=== PATIENT | female | born 1980 | race Caucasian/White ===

== ENCOUNTER 2020-02-01 20:55 | Emergency (ER) | payer OTHER, SELFPAY ==
--- NOTE | ~2020-02-01 | CT_ITS ---
EXAMINATION: CT abdomen pelvis w con DATE: 02/01/2020 23:59 INDICATION: Right upper quadrant abdominal pain TECHNIQUE: Computed tomography (CT) of the abdomen and pelvis was performed with 100 mL Omnipaque-350 intravenous contrast. Automated exposure control and iterative reconstruction technique were employe d. The dose-length product was 1518.72 mGy-cm. COMPARISON: 05/23/2016 FINDINGS: Lung bases are clear. Heart size is normal. No pericardial or pleural effusion. Small sliding-type hi atal hernia. Cholecystectomy clips at the gallbladder fossa. Liver, spleen, pancreas and bilateral ad renal glands are normal. Bilateral nonobstructing nephrolithiasis with 2 mm stone in upper pole calyx of the right kidney, 1 mm stone in an upper pole calyx of the left kidney. No ureteral stones or hyd ronephrosis. Bowels including the appendix are normal. Small fat-containing umbilical hernia. Bladder is normal. The uterus is not identified and has likely been surgically resected. Bilateral adnexa ar e unremarkable. Trace amount of likely physiologic free fluid in the pelvis. No abscess or free intra perineal gas. No pathologically enlarged abdominal or pelvic lymphadenopathy. Moderate thoracic spond ylosis with multiple Schmorl's nodes. Moderate left and mild right hip osteoarthritis. Chronic diffus e sclerosis with increased prominence of the trabecular pattern throughout the pelvis is seen dating back to 2012 suggesting a systemic metabolic bone disease. IMPRESSION: 1. Normal appendix. No acute intra-abdominal/pelvic process. 2. Small sliding-type hiatal hernia. 3. 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 Paget's disease would be unlikely given patien t age. Reviewed, dictated and finalized at location . ADVISOR IMPRESSION: 1. Normal appendix. No acute intra-abdominal/pelvic process. 2. Small sliding-type hiatal hernia. 3. 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 Paget's disease would be unlikely giv en patient age.
[2020-02-01 21:06] VITALS: BP 161/91; PULSE 89; RESP 14; TEMP 37.1; O2SAT 95
[2020-02-01 21:26] LABS: Basophils Absolute Auto 0.1 K/mm3 (0.0-0.1); Basophils Percent Auto 0.6 % (0.2-1.2); Eosinophils Absolute Auto 0.3 K/mm3 (0-0.3); Eosinophils Percent Auto 3.5 % (0-4.4); Hematocrit 37.8 % (37.0-47.0); Hemoglobin 12.2 g/dL (12.0-15.0); Immature Granulocyte Absolute 0.05 K/mm3 (0.00-0.031); Immature Granulocyte Percent A 0.6 % (0-0.5); Lymphocytes Absolute Auto 2.04 K/mm3 (0.9-3.2); Lymphocytes Percent Auto 22.9 % (18.3-44.2); Mean Corpuscular HGB Conc 32.3 g/dl (32-36); Mean Corpuscular Hemoglobin 29.6 pg (26-34); Mean Corpuscular Volume 91.7 fl (80-100); Mean Platelet Volume 9.5 fl (7.4-10.4); Monocytes Absolute Auto 0.6 K/mm3 (0.1-0.6); Monocytes Percent Auto 6.5 % (2.6-8.5); Neutrophils Absolute Auto 5.9 K/mm3 (1.3-6.7); Neutrophils Percent Auto 65.9 % (45.5-73.1); Platelet Count Result 288 k/mm3 (150-375); Red Blood Count 4.12 M/mm3 (4.2-5.4); Red Cell Distribution Width 13.6 % (11.5-14.5); White Blood Count 8.9 K/mm3 (4.5-10.0)
[2020-02-01 21:37] LABS: Alanine Aminotransferase 21 U/L (4-35); Albumin Level 4.2 g/dL (3.5-5.1); Alkaline Phosphatase 92 U/L (38-126); Anion Gap 5 mmol/L (8-16); Aspartate Amino Transferase 20 U/L (14-36); Bilirubin,Total 0.3 mg/dL (0.2-1.3); Blood Urea Nitrogen 9 mg/dL (7-17); Calcium 9.1 mg/dL (8.4-10.2); Carbon Dioxide 29 mmol/L (22-30); Chloride 103 mmol/L (98-107); Estimated CRCL calculation 157 ml/min; Estimated Glomerular Filt Rate > 60; Glucose 140 mg/dL (65-105); Lipase 83 U/L (23-300); Potassium 3.6 mmol/L (3.4-5.0); Sodium 137 mmol/L (137-145)
--- NOTE | 2020-02-01 23:26 | ED.ABDPAIN ---
HPI - Abdominal Pain General Chief Complaint: Abdominal Pain Stated Complaint: abdominal pain x 1 week Time Seen by Provider: 02/01/20 23:25 History of Present Illness HPI narrative: RUQ pain x 1 week. Radiates to the right back. Associated with nausea and one episode of vomiting. Intially intermittent now constant. Made worse by eating. Additionally c/o rotating constipation and diarrhea. H/o cholecystectomy. Related Data Allergies Allergy/AdvReac Type Severity Reaction Status Date / Time METOCLOPRAMIDE HCL Allergy Unknown unknown Uncoded 12/02/19 10:01 Review of Systems Review of Systems: All systems reviewed & are unremarkable except as noted in HPI and below Constitutional: Constitutional: Denies fever(s) Cardiovascular: Cardiovascular: Denies chest pain Respiratory: Respiratory: Denies dyspnea Gastrointestinal: Gastrointestinal: Reports abdominal pain, Reports constipation, Reports diarrhea, Reports nausea and Reports vomiting Genitourinary: Genitourinary: Denies hematuria, Denies nocturia and Denies dysuria Musculoskeletal: Musculoskeletal: Reports back pain Neurologic: Denies dizziness and Denies weakness PMF Past Medical History Medical History Anxiety and depression Essential (primary) hypertension Right low back pain Surgical History Surgical History History of cholecystectomy Family History Family History Father Hypertension Family history of heart disease in male family member before age 55 Grandparent Hypertension Family history of malignant neoplasm of breast Mother Hypertension Other Diabetes mellitus Social History Social History Smoking status: Never smoker Alcohol intake: current Exam Const: General: healthy appearing, no acute distress and alert Orientation/consciousness: patient oriented x3 HENMT: Head: normal to inspection Neck: Neck: normal visual inspection and no lymphadenopathy Chest: Chest palpation & inspection: no tenderness Resp: Effort & Inspection: normal respiratory effort Auscultation: clear to auscultation bilaterally, no rales, no rhonchi and no wheezes Cardio: Jugular venous distension: no JVD Rate: regular rate Rhythm: regular rhythm Heart sounds: no murmurs GI: Inspection: non-distended GI Palp: Yes Soft to palpation, Yes Tenderness to palpation present (GI) (RUQ), No Guarding due to palpation present (GI) and No Rebound tenderness present Skin: General skin exam: normal color Neuro: General: patient oriented x3 and moves all extremities Speech: normal speech Extrem: General: no edema Psych: Appearance: well kempt Affect: normal affect Course Vital Signs Vital signs: Vital Signs Temperature 37.1 C 02/01/20 21:06 Pulse Rate 89 02/01/20 21:06 Respiratory Rate 14 02/01/20 21:06 Blood Pressure 161/91 H 02/01/20 21:06 Pulse Oximetry 95 02/01/20 21:06 Temperature 37.1 C 02/01/20 21:06 Pulse Rate 77 02/02/20 00:13 Respiratory Rate 22 H 02/02/20 00:13 Blood Pressure 163/98 H 02/02/20 00:13 Pulse Oximetry 96 02/02/20 00:13 MDM - Abdominal Pain MDM Narrative Medical decision making narrative: Labs reassuring. Nothing acute on CT. Symptoms suspicious for IBS. I will try bentyl. Differential Diagnosis Differential diagnosis: Likely constipation, diverticulitis and small bowel obstruction Medical Records Attestation: I reviewed the patient's medical records. Lab Data Attestation: I reviewed the patient's lab results. Result diagrams: 02/01/20 21:15 02/01/20 21:15 Labs: Lab Results 02/01/20 02/01/20 02/01/20 Range/Units 21:15 21:15 23:34 WBC 8.9 (4.5-10.0) K/mm3 RBC 4.12 L (4.2-5.4) M/mm3 Hgb 12.2 (12.0-15.0) g/dL Hct
[2020-02-01 23:48] LABS: Add Urine Microscopic? NO; Appearance Urine Clear (Clear); Bilirubin Urine Negative (Negative); Blood Urine Negative (Negative); Color Urine Yellow (Yellow); Glucose Urine UA Negative (Negative); Ketones Urine Negative (Negative); Leukocyte Esterase Ur Negative LEU/UL (Negative); Nitrate Urine Negative (Negative); Protein Urine Negative (Negative); Specific Grav Ur 1.018 (1.001-1.035); Urobilinogen Urine Negative mg/dL (<2.0)
[2020-02-02 00:13] VITALS: BP 163/98; PULSE 77; RESP 22; O2SAT 96
[2020-02-02] MEDS: ONDANSETRON INJ 4 MG/2 ML VIAL IV PUSH (00:56)
[2020-02-02] MEDS: DICYCLOMINE HCL INJ 20 MG/2 ML VIAL IM (00:56)
[2020-02-02 01:36] VITALS: BP 144/88; PULSE 69; RESP 16; TEMP 36.8; O2SAT 97
== END 2020-02-02 01:43 | disposition home or self-care (01) ==
PROVIDERS: Emergency Medicine; Emergency Provider Emergency Medicine; PCP Family Medicine
DX: R10.11 Right upper quadrant pain (principal); I10 Essential (primary) hypertension; K44.9 Diaphragmatic hernia without obstruction or gangrene; M89.9 Disorder of bone, unspecified
CPT/HCPCS: 36415; 74177; 80053; 81003; 81025; 83690; 85025; 96372; 96374; 99284; J0500; J2405; Q9967

== ENCOUNTER 2020-02-10 13:47 | Outpatient (CLI) | payer OTHER, SELFPAY ==
[2020-02-10 14:10] LABS: Basophils Absolute Auto 0.1 K/mm3 (0.0-0.1); Basophils Percent Auto 0.8 % (0.2-1.2); Eosinophils Absolute Auto 0.4 K/mm3 (0-0.3); Eosinophils Percent Auto 4.7 % (0-4.4); Hematocrit 37.5 % (37.0-47.0); Immature Granulocyte Absolute 0.03 K/mm3 (0.00-0.031); Immature Granulocyte Percent A 0.4 % (0-0.5); Lymphocytes Absolute Auto 1.84 K/mm3 (0.9-3.2); Lymphocytes Percent Auto 23.5 % (18.3-44.2); Mean Corpuscular Hemoglobin 29.9 pg (26-34); Mean Corpuscular Volume 93.5 fl (80-100); Mean Platelet Volume 9.3 fl (7.4-10.4); Monocytes Absolute Auto 0.5 K/mm3 (0.1-0.6); Monocytes Percent Auto 6.6 % (2.6-8.5); Platelet Count Result 280 k/mm3 (150-375); Red Blood Count 4.01 M/mm3 (4.2-5.4); Red Cell Distribution Width 13.5 % (11.5-14.5); White Blood Count 7.8 K/mm3 (4.5-10.0)
[2020-02-10 14:24] LABS: Alanine Aminotransferase 23 U/L (4-35); Alkaline Phosphatase 102 U/L (38-126); Amylase 41 U/L (30-110); Anion Gap 3 mmol/L (8-16); Aspartate Amino Transferase 27 U/L (14-36); Bilirubin,Total 0.5 mg/dL (0.2-1.3); Blood Urea Nitrogen 10 mg/dL (7-17); CRP 1.5 mg/dL (<1.0); Calcium 9.1 mg/dL (8.4-10.2); Carbon Dioxide 32 mmol/L (22-30); Chloride 103 mmol/L (98-107); Cholesterol 196 mg/dL (0-200); Estimated Glomerular Filt Rate > 60; Glucose 91 mg/dL (65-105); HDL Direct 33 mg/dL; Lipase 58 U/L (23-300); Potassium 4.3 mmol/L (3.4-5.0); Sodium 138 mmol/L (137-145); Triglycerides 187 mg/dL (<150)
[2020-02-10 14:33] LABS: LDL Cholesterol Direct 115 mg/dL
[2020-02-10 14:54] LABS: Erythrocyte Sedimentation Rate 33 mm/hr (0-20)
[2020-02-10 15:20] LABS: Free T4 Free Thyroxine 0.85 ng/mL (0.78-2.19); Vitamin D 25 Hydroxy 23.9 ng/mL
[2020-02-13 05:45] LABS: Thyroid Peroxidase Antibodies <1 IU/mL (<9)
[2020-02-14 10:42] LABS: ANA Cascade Screen Negative (Negative)
== END 2020-02-10 13:48 | disposition home or self-care (01) ==
PROVIDERS: PCP Family Medicine; Visit Provider Nurse Practitioner Family
DX: Z13.220 Encounter for screening for lipoid disorders (principal); R10.9 Unspecified abdominal pain; D64.9 Anemia, unspecified; R93.5 Abnormal findings on diagnostic imaging of other abdominal regions, including retroperitoneum; F41.9 Anxiety disorder, unspecified; R53.83 Other fatigue; E55.9 Vitamin D deficiency, unspecified; Z51.81 Encounter for therapeutic drug level monitoring; Z79.899 Other long term (current) drug therapy
CPT/HCPCS: 36415; 80053; 80061; 82150; 82306; 83690; 84439; 84443; 85025; 85652; 86038; 86140; 86376

== ENCOUNTER 2020-09-23 10:19 | Outpatient (CLI) | payer OTHER, SELFPAY ==
--- NOTE | ~2020-09-23 | XR_ITS ---
XR foot RT 2V DATE: 09/23/2020 10:30 INDICATION: Pain in medial anterior right foot. TECHNIQUE: AP and lateral views COMPARISON: None FINDINGS: Moderate plantar calcaneal enthesopathy. Slight posterior calcaneal enthesopathy. No fracture or dislocation, periosteal reaction or bone destruction. IMPRESSION: Calcaneal enthesopathy Reviewed, dictated and finalized at location B. IMPRESSION: Calcaneal enthesopathy
== END 2020-09-23 10:20 | disposition home or self-care (01) ==
PROVIDERS: PCP Family Medicine; Visit Provider Physician Assistant Medical
DX: M79.671 Pain in right foot (principal); M77.31 Calcaneal spur, right foot
CPT/HCPCS: 73620

== ENCOUNTER 2021-02-07 09:09 | Outpatient (CLI) | payer OTHER, SELFPAY ==
[2021-02-07 09:43] LABS: Basophils Absolute Auto 0.1 K/mm3 (0.0-0.1); Basophils Percent Auto 0.6 % (0.2-1.2); Eosinophils Absolute Auto 0.4 K/mm3 (0-0.3); Eosinophils Percent Auto 4.4 % (0-4.4); Hematocrit 38.1 % (37.0-47.0); Hemoglobin 12.3 g/dL (12.0-15.0); Immature Granulocyte Absolute 0.04 K/mm3 (0.00-0.031); Immature Granulocyte Percent A 0.4 % (0-0.5); Lymphocytes Percent Auto 20.5 % (18.3-44.2); Mean Corpuscular HGB Conc 32.3 g/dl (32-36); Mean Corpuscular Hemoglobin 30.1 pg (26-34); Mean Corpuscular Volume 93.4 fl (80-100); Mean Platelet Volume 9.6 fl (7.4-10.4); Monocytes Absolute Auto 0.6 K/mm3 (0.1-0.6); Monocytes Percent Auto 6.5 % (2.6-8.5); Neutrophils Absolute Auto 6.2 K/mm3 (1.3-6.7); Neutrophils Percent Auto 67.6 % (45.5-73.1); Platelet Count Result 292 k/mm3 (150-375); Red Blood Count 4.08 M/mm3 (4.2-5.4); Red Cell Distribution Width 13.6 % (11.5-14.5); White Blood Count 9.3 K/mm3 (4.5-10.0)
[2021-02-07 10:01] LABS: Alanine Aminotransferase 22 U/L (4-35); Albumin Level 4.3 g/dL (3.5-5.1); Alkaline Phosphatase 126 U/L (38-126); Anion Gap 9 mmol/L (8-16); Aspartate Amino Transferase 22 U/L (14-36); Bilirubin,Total 0.5 mg/dL (0.2-1.3); Blood Urea Nitrogen 9 mg/dL (7-17); Calcium 9.5 mg/dL (8.4-10.2); Carbon Dioxide 27 mmol/L (22-30); Chloride 102 mmol/L (98-107); Cholesterol 207 mg/dL (0-200); Estimated Glomerular Filt Rate > 60; Glucose 107 mg/dL (65-110); HDL Direct 39 mg/dL; Potassium 4.1 mmol/L (3.4-5.0); Sodium 138 mmol/L (137-145); Triglycerides 177 mg/dL (<150)
[2021-02-07 10:12] LABS: LDL Cholesterol Direct 114 mg/dL
[2021-02-07 10:26] LABS: Vitamin D 25 Hydroxy 28.8 ng/mL
== END 2021-02-07 09:10 | disposition home or self-care (01) ==
PROVIDERS: PCP Family Medicine; Visit Provider Nurse Practitioner Family
DX: Z13.29 Encounter for screening for other suspected endocrine disorder (principal); I10 Essential (primary) hypertension; Z13.220 Encounter for screening for lipoid disorders; E56.9 Vitamin deficiency, unspecified
CPT/HCPCS: 36415; 80053; 80061; 82306; 84443; 85025

== ENCOUNTER 2021-02-08 14:23 | Emergency (ER) | payer OTHER, SELFPAY ==
--- NOTE | ~2021-02-08 | XR_ITS ---
EXAMINATION: XR chest 2V DATE: 02/08/2021 17:48 INDICATION: Chest pain. TECHNIQUE: Frontal and lateral views of the chest were obtained. COMPARISON: Chest 2 views 11/13/2014 FINDINGS: There is no pneumonia, pleural effusion, or pneumothorax. The heart size is normal. There i s mild chronic anterior wedging of multiple vertebral bodies. IMPRESSION: 1. No acute cardiopulmonary disease. Reviewed, dictated and finalized at location A. ECTION SUPERVISOR
--- NOTE | ~2021-02-08 | CT_ITS ---
EXAMINATION: CT brain wo con DATE: 02/08/2021 17:47 INDICATION: Headache. TECHNIQUE: Computed tomography (CT) of the head was performed without intravenous contrast. The mA wa s adjusted according to patient size. Iterative reconstruction technique was employed. The dose-lengt h product was 605.33 mGy-cm. COMPARISON: None FINDINGS: There is no acute ischemic infarct, intracranial hemorrhage, or abnormal mass lesion. The v entricles are normal in size. The paranasal sinuses are clear. There are likely changes of right ocul ar lens replacement surgery. The mastoid air cells are normal. IMPRESSION: 1. Normal brain. Reviewed, dictated and finalized at location A. ATOR MECHANIC IMPRESSION: 1. Normal brain.
[2021-02-08 14:35] VITALS: BP 180/104; PULSE 83; RESP 20; TEMP 36.5; O2SAT 100
[2021-02-08 17:06] VITALS: BP 183/97; PULSE 86; RESP 13; O2SAT 95
--- NOTE | 2021-02-08 17:15 | ECG_ITS ---
Measurements Intervals [place] Rate: 71 P: 15 [place]: 143 QRS: 37 QRSD: 102 T: 10 QT: 388 QTc: 423 Interpretive Statements SINUS RHYTHM EARLY PRECORDIAL R/S TRANSITION BASELINE WANDER- I, II BORDERLINE ECG Electronically Signed On 02-08-2021 20:14:29 PLASTER BLOCK LAYER by Salas Gonzalez D.O.
--- NOTE | 2021-02-08 17:25 | PC.NURSE ---
Pt gone to CT scan
[2021-02-08 17:31] LABS: Basophils Absolute Auto 0.1 K/mm3 (0.0-0.1); Basophils Percent Auto 0.6 % (0.2-1.2); Eosinophils Absolute Auto 0.5 K/mm3 (0-0.3); Eosinophils Percent Auto 4.2 % (0-4.4); Hematocrit 38.4 % (37.0-47.0); Hemoglobin 12.3 g/dL (12.0-15.0); Immature Granulocyte Absolute 0.05 K/mm3 (0.00-0.031); Immature Granulocyte Percent A 0.4 % (0-0.5); Lymphocytes Absolute Auto 2.03 K/mm3 (0.9-3.2); Lymphocytes Percent Auto 17.9 % (18.3-44.2); Mean Corpuscular Hemoglobin 29.9 pg (26-34); Mean Corpuscular Volume 93.4 fl (80-100); Mean Platelet Volume 9.3 fl (7.4-10.4); Monocytes Absolute Auto 0.6 K/mm3 (0.1-0.6); Monocytes Percent Auto 5.4 % (2.6-8.5); Neutrophils Absolute Auto 8.1 K/mm3 (1.3-6.7); Neutrophils Percent Auto 71.5 % (45.5-73.1); Platelet Count Result 298 k/mm3 (150-375); Red Blood Count 4.11 M/mm3 (4.2-5.4); Red Cell Distribution Width 13.9 % (11.5-14.5); White Blood Count 11.3 K/mm3 (4.5-10.0)
--- NOTE | 2021-02-08 17:31 | ED.HA ---
HPI - Headache General Chief Complaint: Headache Stated Complaint: Headache, Elevated BP Time Seen by Provider: 02/08/21 17:01 Source: patient and RN notes reviewed Mode of arrival: ambulatory Limitations: no limitations History of Present Illness HPI Narrative: This is a 40 year old female with history of frequent headaches, anxiety and hypertension who presents for evaluation chest tightness and headache. Patient has been having intermittent chest tightness for 1 week and frontal dull headache. She checked her blood pressure at home it has been elevated so she came to ER. She has been evaluated by PCP for headache and she reports 1 month ago she had medication changed that helped her headache. They were thinking her symptoms were due to anxiety. She denies worsening shortness of breath, cough, fever, vomiting, diarrhea. She reports nausea with headache. Her headache has been constant today but she denies associated photophobia today. She denies URI symptoms as well. Today she has not taken any medication for her headache. Related Data Home Medications Medication Instructions Recorded Confirmed meloxicam 15 mg tablet 15 mg PO DAILY 11/15/20 01/09/21 Allergies Allergy/AdvReac Type Severity Reaction Status Date / Time metoclopramide Allergy Unknown Verified 02/08/21 17:56 Review of Systems Review of Systems: All systems reviewed & are unremarkable except as noted in HPI and below PMFSH Past Medical History Medical History Anxiety and depression BMI 40.0-44.9, adult BMI greater than 40 Essential (primary) hypertension Morbid (severe) obesity due to excess calories Right low back pain Surgical History Surgical History H/O: hysterectomy History of cholecystectomy Family History Family History Father Hypertension Family history of heart disease in male family member before age 55 Peripheral artery disease Grandparent Hypertension Family history of malignant neoplasm of breast Mother Hypertension Sibling Peripheral artery disease Other Diabetes mellitus Social History Social History Second hand tobacco smoke exposure: No Alcohol intake: current Drinks per week: 3 Substance use: never Substance use type: does not use 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 Gender identity (if verbalized by the patient): Female Sexual Orientation (if Verbalized by the Patient): Straight or Heterosexual Spiritual care concerns: No Agree to blood products: Yes Exam Const: General: no acute distress and alert Orientation/consciousness: patient oriented x3 HENMT: Head: normocephalic and atraumatic Mouth: Yes Normal oral and palatal mucosa present, Yes lip normal, Yes oropharynx normal and Yes moist mucous membranes Eyes: EOM: EOMs intact bilaterally Other: right pupil nonreactive dilated , this is normal for patient Resp: Effort & Inspection: normal respiratory effort and no retractions Auscultation: clear to auscultation bilaterally GI: GI Palp: Yes Soft to palpation, No Tenderness to palpation present (GI) and No Guarding due to palpation present (GI) Auscultation: normal bowel sounds Neuro: General: patient oriented x3, moves all extremities and CN's II-XI intact bilaterally Extrem: General: normal to inspection Psych: Mental Status: mental status grossly normal Affect: normal affect Course Reevaluation(s) Reevaluation #1: Patient states she feels better. She has history of chronic headaches. Her chest pain is atypical. She will follow up with PCP Date: 02/08/21 Time: 20:19 Vital Signs Vital signs: Vital Signs Temperature 97.7 F 02/08/21 14:35 Pulse Rate 83 02/08/21 14:35 Respiratory Rate 20 12
[2021-02-08 17:39] LABS: Alanine Aminotransferase 24 U/L (4-35); Albumin Level 4.5 g/dL (3.5-5.1); Alkaline Phosphatase 117 U/L (38-126); Anion Gap 9 mmol/L (8-16); Aspartate Amino Transferase 24 U/L (14-36); Bilirubin,Total 0.5 mg/dL (0.2-1.3); Blood Urea Nitrogen 10 mg/dL (7-17); Calcium 9.5 mg/dL (8.4-10.2); Carbon Dioxide 28 mmol/L (22-30); Chloride 98 mmol/L (98-107); Estimated CRCL calculation 137 ml/min; Estimated Glomerular Filt Rate > 60; Glucose 97 mg/dL (65-110); Lipase 48 U/L (23-300); Potassium 3.8 mmol/L (3.4-5.0); Sodium 135 mmol/L (137-145)
[2021-02-08 17:41] LABS: Partial Thromboplastin Time 29.2 SECONDS (22.3-36.8)
[2021-02-08 17:44] LABS: D Dimer 0.41 ug/mL (<0.48)
[2021-02-08 17:51] LABS: Troponin I < 0.012 ng/mL (0.000-0.034)
[2021-02-08] MEDS: KETOROLAC 30 MG/ML VIAL (*BKC) IV PUSH (18:30)
[2021-02-08] MEDS: LORazepam (*CRX) 0.5 MG TABLET PO (18:30)
[2021-02-08] MEDS: SODIUM CHLORIDE 0.9% IV 1,000 ML 999 ML IV CONT (18:54)
[2021-02-08 19:10] VITALS: BP 156/87; PULSE 78; RESP 23; O2SAT 98
[2021-02-08 20:05] VITALS: BP 156/85; PULSE 77; RESP 24; O2SAT 97
[2021-02-08 20:49] VITALS: BP 134/86; PULSE 78; RESP 21; O2SAT 96
== END 2021-02-08 21:02 | disposition home or self-care (01) ==
PROVIDERS: Emergency Provider General Practice; PCP Family Medicine
DX: R51.9 Headache, unspecified (principal); R07.89 Other chest pain; I10 Essential (primary) hypertension; E66.01 Morbid (severe) obesity due to excess calories; Z68.41 Body mass index [BMI] 40.0-44.9, adult
CPT/HCPCS: 36415; 70450; 71046; 80053; 83690; 84484; 85025; 85380; 85610; 85730; 93005; 96361; 96365; 96375; 99284; A9270; J0131; J1885; J7030

== ENCOUNTER → 2021-03-07 01:45 | Outpatient (CLI) | payer OTHER, SELFPAY ==
[2021-03-08 13:32] LABS: SARS-CoV-2 RNA PCR Positive
== END ==
PROVIDERS: PCP Family Medicine; Visit Provider Nurse Practitioner Family
DX: U07.1 COVID-19 (principal); R06.00 Dyspnea, unspecified; R68.89 Other general symptoms and signs
CPT/HCPCS: C9803; U0003; U0005

== ENCOUNTER 2021-03-17 07:08 | Outpatient (CLI) | payer OTHER, SELFPAY ==
--- NOTE | 2021-03-17 07:14 | ECHO_ITS ---
Patient Info Name: Ольга Parish Age: 40 years : 1980 Gender: Female Ht: 66 in Wt: 255 lbs BSA: 2.38 m2 HR: 70 bpm BP: 151 / 97 mmHg Technical Quality: Fair Exam Date: 03/17/2021 7:34 AM Exam Location: [facility] Pulmonary Patient Status: Outpatient Admit Date: 03/17/2021 Staff Ordering Physician: Kandis Leyva NP Cyber Special Agent: Marion Alvarez RDCS Attending Provider: Kandis Leyva NP Referring Physician: Gordon GUTIERREZ; Exam Type: CA echo doppler color flow Study Info Indications R06.00 - Dyspnea, unspecified Complete two-dimensional, color flow and Doppler transthoracic echocardiogram is performed. Summary 1. Complete two-dimensional, color flow and Doppler transthoracic echocardiogram is performed. 2. Left ventricular chamber dimension is normal. 3. Left ventricular systolic function is normal, estimated at 60-65%. 4. The left ventricular diastolic function is normal. 5. E/e' 7 is not elevated. 6. No pulmonary hypertension, estimated pulmonary arterial systolic pressure is 24 mmHg. Left Ventricle E/e' 7 is not elevated. Left ventricular chamber dimension is normal. Left ventricular systolic function is normal, estimated at 60-65%. The left ventricular diastolic function is normal. Right Ventricle Right ventricular chamber dimension is normal. Right ventricular systolic function is normal. Left Atria Left atrial chamber dimension is normal. Right Atria Right atrial chamber dimension is normal. Aortic Valve The aortic valve is trileaflet. There is no aortic valve stenosis. There is no aortic valve regurgitation. Pulmonic Valve There is no pulmonic regurgitation. Mitral Valve There is no mitral valve stenosis. There is no mitral valve regurgitation. Tricuspid Valve There is no tricuspid valve regurgitation. No pulmonary hypertension, estimated pulmonary arterial systolic pressure is 24 mmHg. Pericardium/Pleural There is no pericardial effusion. Inferior Vena Cava Inferior vena cava is not well visualized. Aorta The aortic root size at the sinus of Valsalva is normal. Left Ventricular Outflow Tract Name Value Normal LVOT 2D LVOT Diameter 2.0 cm LVOT Doppler LVOT Peak Gradient 4 mmHg LVOT Mean Gradient 2 mmHg LVOT VTI 20 cm LVOT VTI/AV VTI Ratio 0.9 LVOT Stroke Volume 64 ml LVOT CO 4.3 l/min LVOT CI 1.8 l/min/m2 Pulmonic Valve Name Value Normal RVOT Doppler RVOT Peak Gradient 2 mmHg PV Doppler PV Peak Gradient 3 mmHg Mitral Valve
--- NOTE | 2021-03-17 07:14 | EST_ITS ---
Patient Info Name: Ольга Parish Age: 40 years : 1980 Gender: Female Ht: 66 in Wt: 255 lbs BSA: 2.38 m2 HR: 65 bpm BP: 149 / 84 mmHg Heart Rhythm: Sinus Rhythm Exam Date: 03/17/2021 8:54 AM Exam Location: [facility] Stress Patient Status: Outpatient Admit Date: 03/17/2021 Staff Ordering Physician: Kandis Leyva NP Attending Provider: Kandis Leyva NP Exercise Technologist: Kasandra Berg CT Exercise Physician: Salas Gonzalez DO Exam Type: CA stress test treadmill Study Info Indications R06.00 - Dyspnea, unspecified An exercise stress test was performed. Summary 1. 1. Negative Yang exercise stress test for ischemic ST changes by ECG criteria. 2. 2. Reduced functional capacity, achieving 7.7 METs of workload. 3. 3. Baseline hypertension with hypertensive response to exercise. 4. 4. Appropriate HR response to exercise. 5. 5. Appropriate HR recovery at 1 minute post exercise. 6. 6. No imaging with stress testing. Protocol: Yang Stress ECG Details Stage: REST Duration (min): 1 min : 7 sec Speed (mph): 0.0 Grade (%): 0 HR (bpm): 64 SBP (mmHg): 149 DBP (mmHg): 84 METS: --- Stage: REST Duration (min): 5 min : 25 sec Speed (mph): 0.0 Grade (%): 0 HR (bpm): 79 SBP (mmHg): 149 DBP (mmHg): 84 METS: --- Stage: STAGE 1 Duration (min): 1 min : 0 sec Speed (mph): 1.7 Grade (%): 10 HR (bpm): 112 SBP (mmHg): 149 DBP (mmHg): 84 METS: --- Stage: STAGE 1 Duration (min): 2 min : 0 sec Speed (mph): 1.7 Grade (%): 10 HR (bpm): 124 SBP (mmHg): 149 DBP (mmHg): 84 METS: --- Stage: STAGE 1 Duration (min): 3 min : 0 sec Speed (mph): 1.7 Grade (%): 10 HR (bpm): 133 SBP (mmHg): 191 DBP (mmHg): 96 METS: --- Stage: STAGE 2 Duration (min): 1 min : 0 sec Speed (mph): 2.5 Grade (%): 12 HR (bpm): 144 SBP (mmHg): 191 DBP (mmHg): 96 METS: --- Stage: STAGE 2 Duration (min): 2 min : 0 sec Speed (mph): 2.5 Grade (%): 12 HR (bpm): 152 SBP (mmHg): 186 DBP (mmHg): 94 METS: --- Stage: STAGE 2 Duration (min): 3 min : 0 sec Speed (mph): 2.5 Grade (%): 12 HR (bpm): 159 SBP (mmHg): 186 DBP (mmHg): 94 METS: --- Stage: STAGE 3 Duration (min): 0 min : 28 sec Speed (mph): 3.4 Grade (%): 14 HR (bpm): 167 SBP (mmHg): 186 DBP (mmHg): 94 METS: --- Stage: RECOVERY Duration (min): 0 min : 31 sec Speed (mph): 0.0 Grade (%): 0 HR (bpm): 159 SBP (mmHg): 188 DBP (mmHg): 110 METS: --- Stage: RECOVERY Duration (min): 1 min : 31 sec Speed (mph): 0.0 Grade (%): 0 HR (bpm): 129 SBP (mmHg): 188 DBP (mmHg): 110 METS: --- Stage: RECOVERY Duration (min): 2 min : 31 sec Speed (mph): 0.0 Grade (%): 0 HR (bpm): 111 SBP (mmHg): 188 DBP (mmHg): 110 METS: ---
--- NOTE | 2021-03-21 12:00 | WPDHOLTEREM ---
Holter/Event Monitor Holter/Event Monitor Date of procedure: 03/17/21 Holter/Event Procedure: 24 Hr Holter Monitor Indications: Palpitations Conclusion: 1. 24 hour holter monitor on 03/17/21. 2. Underlying rhythm is sinus rhythm. HR range 59-128 bpm; average HR 87 bpm. 3. There is one atrial couplet. No supraventricular tachycardia. 4. There are 35 premature ventricular complexes. No ventricular tachycardia. 5. No sinoatrial or atrioventricular blocks. No significant pauses greater than 2 seconds. 6. Patient reports symptoms of shortness of breath, chest tightness which demonstrate sinus rhythm, HR range 67-77 bpm.
== END 2021-03-17 07:09 | disposition home or self-care (01) ==
PROVIDERS: PCP Family Medicine; Visit Provider Nurse Practitioner Family
DX: R06.00 Dyspnea, unspecified (principal); R00.2 Palpitations; I10 Essential (primary) hypertension; R07.89 Other chest pain
CPT/HCPCS: 93017; 93225; 93226; 93306

== ENCOUNTER 2021-03-22 17:49 | Day surgery (SDC) | payer OTHER, SELFPAY ==
[2021-03-22 17:57] VITALS: BP 171/97; PULSE 77; RESP 20; TEMP 37.2; O2SAT 100
--- NOTE | 2021-03-22 19:22 | ED.GENADULT ---
HPI - General Adult General Chief complaint: Skin/Abscess/Foreign Body Stated complaint: choking after dinner Time Seen by Provider: 03/22/21 18:48 History of Present Illness HPI narrative: 40-year-old female presented emergency department for suspected esophageal food bolus. Patient has had this issue previously. Patient did have a scope in 2008. Patient has not had GI follow-up since then. Patient has been taking omeprazole for approximately last 4 years. Patient states about 1 month ago she had a similar episode where food got stuck but when she is able to clear by drinking water. Patient states today at approximately 530 she was eating a chicken pot pie and felt that the bite is still in her esophagus. Since that time patient has been unable to handle her own secretions and has been vomiting her saliva. Patient denies any difficulty breathing. Patient does report esophageal/chest pain. Related Data Allergies Allergy/AdvReac Type Severity Reaction Status Date / Time metoclopramide Allergy Intermediate Unknown Verified 03/22/21 18:55 Review of Systems Review of Systems: CONSTITUTIONAL: Denies fever, chills, or sweats. EYES: Denies visual changes, redness, or discharge. ENT: Denies rhinorrhea, congestion, sore throat, or otalgia. CARDIOVASCULAR: Denies chest pain, palpitations, or edema. RESPIRATORY: Denies cough or dyspnea. GASTROINTESTINAL: Epigastric pain, patient not able to handle her own secretions and vomiting her saliva. GENITOURINARY: Denies dysuria or hematuria. SKIN: Denies rash or itching. MUSCULOSKELETAL: Denies back pain, joint pain, or myalgia. NEUROLOGIC: Denies headache, numbness, or weakness. PSYCHIATRIC: Denies anxiety or depression. [facility], [facility] Past Medical History Medical History Anxiety and depression BMI 40.0-44.9, adult BMI greater than 40 Essential (primary) hypertension Morbid (severe) obesity due to excess calories Right low back pain Surgical History Surgical History H/O: hysterectomy History of cholecystectomy Family History Family History Father Hypertension Family history of heart disease in male family member before age 55 Peripheral artery disease Grandparent Hypertension Family history of malignant neoplasm of breast Mother Hypertension Sibling Peripheral artery disease Other Diabetes mellitus Social History Social History Second hand tobacco smoke exposure: No Alcohol intake: current Drinks per week: 3 Substance use: never Substance use type: does not use 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 HEAD: normocephalic, atraumatic. EYES: PERRLA/EOMI, conjunctivae clear. NOSE: Normal no drainage THROAT: Pharynx clear, no exudate. NECK: Supple. No adenopathy, no masses. RESPIRATORY: Airway patent, respirations nonlabored. Clear to auscultation bilaterally, no rales, rhonchi, wheezing. CARDIOVASCULAR: Regular rate and rhythm without murmurs rubs or gallops. ABDOMINAL: Soft, nontender, nondistended, normal bowel sounds MUSCULOSKELETAL: Moves all extremities. Strength/ROM intact, No edema, No calf tenderness. Course Course Emergency Course: Case discussed with Dr. Morrow on-call for GI. Patient was treated with glucagon and nitro and had no effect after 30 minutes. Case was rediscussed with Dr. Simeon and he is calling in the GI team with the plan to take the patient to the GI lab to remove the food bolus. Patient was updated on the plan. All qu
[2021-03-22] MEDS: GLUCAGON FOR INJ 1 MG VIAL IM (19:49)
[2021-03-22] MEDS: NITROGLYCERIN SL 0.4 MG TABLET SUBLINGUAL (19:50)
[2021-03-22 20:23] LABS: Basophils Absolute Auto 0.1 K/mm3 (0.0-0.1); Basophils Percent Auto 0.5 % (0.2-1.2); Eosinophils Absolute Auto 0.4 K/mm3 (0-0.3); Eosinophils Percent Auto 3.7 % (0-4.4); Hematocrit 35.4 % (37.0-47.0); Hemoglobin 11.4 g/dL (12.0-15.0); Immature Granulocyte Absolute 0.04 K/mm3 (0.00-0.031); Immature Granulocyte Percent A 0.4 % (0-0.5); Lymphocytes Absolute Auto 1.91 K/mm3 (0.9-3.2); Lymphocytes Percent Auto 18.5 % (18.3-44.2); Mean Corpuscular HGB Conc 32.2 g/dl (32-36); Mean Corpuscular Hemoglobin 30.2 pg (26-34); Mean Corpuscular Volume 93.7 fl (80-100); Mean Platelet Volume 9.3 fl (7.4-10.4); Monocytes Absolute Auto 0.7 K/mm3 (0.1-0.6); Monocytes Percent Auto 6.7 % (2.6-8.5); Neutrophils Absolute Auto 7.3 K/mm3 (1.3-6.7); Neutrophils Percent Auto 70.2 % (45.5-73.1); Platelet Count Result 321 k/mm3 (150-375); Red Blood Count 3.78 M/mm3 (4.2-5.4); Red Cell Distribution Width 14.3 % (11.5-14.5); White Blood Count 10.3 K/mm3 (4.5-10.0)
[2021-03-22 20:35] LABS: Alanine Aminotransferase 25 U/L (4-35); Albumin Level 4.3 g/dL (3.5-5.1); Alkaline Phosphatase 111 U/L (38-126); Anion Gap 10 mmol/L (8-16); Aspartate Amino Transferase 34 U/L (14-36); Bilirubin,Total 0.5 mg/dL (0.2-1.3); Blood Urea Nitrogen 12 mg/dL (7-17); Calcium 9.2 mg/dL (8.4-10.2); Carbon Dioxide 26 mmol/L (22-30); Chloride 103 mmol/L (98-107); Estimated CRCL calculation 161 ml/min; Estimated Glomerular Filt Rate > 60; Glucose 135 mg/dL (65-110); Potassium 3.9 mmol/L (3.4-5.0); Sodium 139 mmol/L (137-145)
--- NOTE | 2021-03-22 20:47 | WPDANESEPP ---
Anes - Eval Pre Procedure Procedure: EGD Date/Time: 03/22/21 20:47 Surgeon: radha Pre Op Diagnosis: choking after dinner Patient Data Age: 40 Gender: F Height: 1.68 m Weight: 115.9 kg Last Vital Signs Temp 37.2 C 03/22/21 17:57 Pulse 77 03/22/21 17:57 Resp 20 03/22/21 17:57 BP 171/97 H 03/22/21 17:57 Pulse Ox 100 03/22/21 17:57 Allergies Allergy/AdvReac Type Severity Reaction Status Date / Time metoclopramide Allergy Intermediate Unknown Verified 03/22/21 18:55 Home Medications Medication Instructions Recorded Confirmed Type omeprazole 20 mg capsule,delayed 20 mg PO DAILY #30 cap 03/18/20 03/06/21 Rx release alprazolam 0.25 mg tablet 0.25 mg PO TID PRN #90 tablet 01/09/21 03/06/21 Rx duloxetine 30 mg capsule,delayed 30 mg PO DAILY #30 cap 01/09/21 03/06/21 Rx release nebivolol 20 mg tablet 10 mg PO DAILY #30 tablet 02/22/21 03/06/21 Rx tizanidine 2 mg tablet See Rx Instructions .ROUTE 03/05/21 03/06/21 Rx .COMPLEX #30 tablet azithromycin 250 mg tablet See Rx Instructions PO .COMPLEX #6 03/06/21 03/06/21 Rx tablet Laboratory Tests 03/22/21 03/22/21 20:12 20:12 WBC 10.3 K/mm3 H K/mm3 (4.5-10.0) RBC 3.78 M/mm3 L M/mm3 (4.2-5.4) Hgb 11.4 g/dL L g/dL (12.0-15.0) Hct 35.4 % L % (37.0-47.0) MCV 93.7 fl fl (80-100) MCH 30.2 pg pg (26-34) MCHC 32.2 g/dl g/dl (32-36) RDW 14.3 % % (11.5-14.5) Plt Count 321 k/mm3 k/mm3 (150-375) MPV 9.3 fl fl (7.4-10.4) Immature Gran % (Auto) 0.4 % % (0-0.5) Neut % (Auto) 70.2 % % (45.5-73.1) Lymph % (Auto) 18.5 % % (18.3-44.2) Barron % (Auto) 6.7 % % (2.6-8.5) Eos % (Auto) 3.7 % % (0-4.4) Baso % (Auto) 0.5 % % (0.2-1.2) Lymph # (Auto) 1.91 K/mm3 K/mm3 (0.9-3.2) Barron # (Auto) 0.7 K/mm3 H K/mm3 (0.1-0.6) Eos # (Auto) 0.4 K/mm3 H K/mm3 (0-0.3) Baso # (Auto) 0.1 K/mm3 K/mm3 (0.0-0.1) Abs Immat Gran (auto) 0.04 K/mm3 H K/mm3 (0.00-0.031) Absolute Neuts (auto) 7.3 K/mm3 H K/mm3 (1.3-6.7) Absolute Nucleated RBC 0.0 K/mm3 K/mm3 (0.0-0.012) Nucleated RBC % 0.0 % % (0.0-0.2) Sodium 139 mmol/L mmol/L (137-145) Potassium 3.9 mmol/L mmol/L (3.4-5.0) Chloride 103 mmol/L mmol/L (98-107) Carbon Dioxide 26 mmol/L mmol/L (22-30) Anion Gap 10 mmol/L mmol/L (8-16) BUN 12 mg/dL mg/dL (7-17) Creatinine 0.50 mg/dL L mg/dL (0.7-1.0) Estim Creat Clear Calc 161 ml/min ml/min Estimated GFR > 60 (59 - ) Glucose 135 mg/dL H mg/dL (65-110) Calcium 9.2 mg/dL mg/dL (8.4-10.2) Total Bilirubin 0.5 mg/dL mg/dL (0.2-1.3) AST 34 U/L U/L (14-36) ALT 25 U/L U/L (4-35) Alkaline Phosphatase 111 U/L U/L (38-126) Total Protein 8.0 g/dL g/dL (6.3-8.2) Albumin 4.3 g/dL g/dL (3.5-5.1) Patient hx anesthesia problems: none Family hx anesthesia problems: none Results Review: All pre-operative results and documents have been reviewed as part of the pre-operative evaluation. [facility] Past Medical History Medical History Anxiety and depression BMI 40.0-44.9, adult BMI greater than 40 Essential (primary) hypertension Morbid (severe) obesity due to excess calories Right low back pain Surgical History Surgical History H/O: hysterectomy History of cholecystectomy Family History Family History Father Hypertension Family history of heart disease in male family member before age 55 Peripheral artery disease Grandparent Hypertension Family history of malignant neoplasm of breast Mother Hypertension Sibling Peripheral artery disease Other Jacque
--- NOTE | 2021-03-22 21:25 | WPDGICN ---
Assessment and Plan Assessment and plan (1) Esophageal obstruction due to food impaction: Code(s): K22.2 - Esophageal obstruction; T18.128A - Food in esophagus causing other injury, initial encounter Status: Acute Assessment and Plan: EGD with possible biopsy or dilatation or cautery. GI Consult Note Consult date/time: 03/22/21 21:25 HPI: Ольга Parish is a 40 year old female Was eating a pot pie this evening and she realized that something got stuck. She believes that a piece of chicken is impacted. She has not been able to swallow her secretions. This is causing chest pain. She states she began taking omeprazole about 4 years ago for acid reflux. at that time she had had an episode of food sticking. She did not have endoscopy at that time but had radiologic studies that were said to be normal. The only time she had an EGD was 12 years ago when she was being investigated for gallbladder disease ago she had a similar episode that resolved on its own. In the emergency room she was given glucagon as well as nitroglycerin without improvement. there has been no weight loss. Review of Systems Review of Systems: All systems reviewed & are unremarkable except as noted in HPI and below PMFSH Past Medical History Medical History Anxiety and depression BMI 40.0-44.9, adult BMI greater than 40 Essential (primary) hypertension Morbid (severe) obesity due to excess calories Right low back pain Surgical History Surgical History H/O: hysterectomy History of cholecystectomy Family History Family History Father Hypertension Family history of heart disease in male family member before age 55 Peripheral artery disease Grandparent Hypertension Family history of malignant neoplasm of breast Mother Hypertension Sibling Peripheral artery disease Other Diabetes mellitus Social History Social History Second hand tobacco smoke exposure: No Alcohol intake: current Drinks per week: 3 Substance use: never Substance use type: does not use 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 Gender identity (if verbalized by the patient): Female Sexual Orientation (if Verbalized by the Patient): Straight or Heterosexual Spiritual care concerns: No Agree to blood products: Yes Meds Home Medications and Allergies Home Medications Medication Instructions Recorded Confirmed Type omeprazole 20 mg capsule,delayed 20 mg PO DAILY #30 cap 03/18/20 03/06/21 Rx release alprazolam 0.25 mg tablet 0.25 mg PO TID PRN #90 tablet 01/09/21 03/06/21 Rx duloxetine 30 mg capsule,delayed 30 mg PO DAILY #30 cap 01/09/21 03/06/21 Rx release nebivolol 20 mg tablet 10 mg PO DAILY #30 tablet 02/22/21 03/06/21 Rx tizanidine 2 mg tablet See Rx Instructions .ROUTE 03/05/21 03/06/21 Rx .COMPLEX #30 tablet azithromycin 250 mg tablet See Rx Instructions PO .COMPLEX #6 03/06/21 03/06/21 Rx tablet Allergies Allergy/AdvReac Type Severity Reaction Status Date / Time metoclopramide Allergy Intermediate Unknown Verified 03/22/21 18:55 Vital Signs Vital Signs - 24 hr 03/22/21 17:57 Temperature 37.2 C Pulse Rate 77 Respiratory Rate 20 Blood Pressure 171/97 H Pulse Oximetry 100 Exam Const: General: cooperative Nutritional Appearance: obese Orientation/consciousness: patient oriented x3 Resp: Auscultation: clear to auscultation bilaterally Cardio: Rhythm: regular rhythm GI: GI Palp: Yes Soft to palpation and No Tenderness to palpation present (GI) Auscultation: normal bowel sounds Neuro: General: patient oriented x3 Results Labs CBC & Chem 7: 03/22/21 20:12 03/22/21 20:12 Labs: Short CBC
--- NOTE | 2021-03-22 21:29 | SUR.PREOP ---
Pre oping and Post oping pt in Endoscopy room 3
[2021-03-22 21:33] VITALS: BP 178/110; PULSE 76; RESP 23; O2SAT 100
[2021-03-22] MEDS: LACTATED RINGERS 1,000 ML 150 ML IV CONT (21:33)
--- NOTE | 2021-03-22 21:34 | WPDANESEFPP ---
Anes - Eval Final PreProcedure Day of Procedure 03/22/21 21:34 Patient weight: morbidly obese Heart: regular rate and rhythm Lungs: clear to auscultation Airway: Mallampati scale class III Neurological: alert and oriented Last oral intake: 6 hours ASA classification: III Emergent: yes Anesthetic plan: proceed Anesthesia type and monitoring: general GIVS and standard monitoring Other findings: possible GETA Results Review: All pre-operative results and documents have been reviewed as part of the pre-operative evaluation. Informed Consent: The patient's anesthetic plan and its attendant risks and benefits were discussed with the patient/family/POA. Questions were solicited and answers provided to the satisfaction of the patient/family/POA.
--- NOTE | 2021-03-22 21:52 | PC.NURSE ---
2115 patient taken over to surgery with GI. family member remains at side.
[2021-03-22 22:15] VITALS: BP 134/76; PULSE 92; RESP 14; O2SAT 99
[2021-03-22 22:25] VITALS: BP 118/77; PULSE 89; RESP 16; O2SAT 100
[2021-03-22 22:35] VITALS: BP 124/80; PULSE 80; RESP 23; O2SAT 100
== END 2021-03-22 22:45 | disposition home or self-care (01) ==
LOC: ANHED 20:22 → ANHENDO 21:31
PROVIDERS: Emergency Provider Emergency Medicine; PCP Family Medicine; Visit Provider Internal Medicine Gastroenterology
PROC: 0DJ08ZZ Inspection of Upper Intestinal Tract, Via Natural or Artificial Opening Endoscopic (ICD-10-PCS; CPT 43235; principal; 2021-03-22 21:00)
DX: T18.128A Food in esophagus causing other injury, initial encounter (principal); K22.2 Esophageal obstruction; K44.9 Diaphragmatic hernia without obstruction or gangrene; I10 Essential (primary) hypertension; F41.8 Other specified anxiety disorders; E66.01 Morbid (severe) obesity due to excess calories; Z68.41 Body mass index [BMI] 40.0-44.9, adult
CPT/HCPCS: 43247; 36415; 80053; 85025; 96372; 99285; A9270; J1610; J2001; J2704; J7120

== ENCOUNTER 2021-03-30 00:35 | Day surgery (SDC) | payer OTHER, SELFPAY ==
[2021-03-27 13:53] VITALS: BMI 41.3
[2021-03-30 09:20] VITALS: BP 153/93; PULSE 68; RESP 18; TEMP 36.3; O2SAT 97; BMI 41.3
[2021-03-30] MEDS: LACTATED RINGERS 1,000 ML 150 ML IV CONT (09:51)
--- NOTE | 2021-03-30 10:14 | PM.HPGS ---
History of Present Illness History of Present Illness Consent: Risks, benefits, and alternatives have been discussed and questions answered. Patient agrees to proceed with procedure. Chief complaint: dysphagia Narrative: Ольга Parish is a 40 year old female who presents for endoscopy and possible dilatation due to the fact that she had a recent food bolus impaction which was removed 1 week ago. At that time she was noted to have stenosis at the GE junction and marked inflammation because of the tightly impacted food. Review of Systems Review of Systems: All systems reviewed & are unremarkable except as noted in HPI and below PMFSH Past Medical History Medical History Anxiety and depression BMI 40.0-44.9, adult BMI greater than 40 Essential (primary) hypertension Morbid (severe) obesity due to excess calories Right low back pain Surgical History Surgical History H/O: hysterectomy History of cholecystectomy Family History Family History Father Hypertension Family history of heart disease in male family member before age 55 Peripheral artery disease Grandparent Hypertension Family history of malignant neoplasm of breast Mother Hypertension Sibling Peripheral artery disease Other Diabetes mellitus Social History Social History Smoking status: Never smoker Second hand tobacco smoke exposure: No Alcohol intake: current Drinks per week: 3 Substance use: never Substance use type: does not use Living arrangements: with family 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 Gender identity (if verbalized by the patient): Female Sexual Orientation (if Verbalized by the Patient): Straight or Heterosexual Spiritual care concerns: No Agree to blood products: Yes Meds Home Medications and Allergies Home Medications Medication Instructions Recorded Confirmed Type alprazolam 0.25 mg tablet 0.25 mg PO TID PRN #90 tablet 01/09/21 03/30/21 Rx duloxetine 30 mg capsule,delayed 30 mg PO DAILY #30 cap 01/09/21 03/30/21 Rx release nebivolol [Bystolic] 20 mg PO DAILY 03/27/21 03/30/21 History omeprazole 40 mg PO DAILY 03/27/21 03/30/21 History tizanidine 2 mg tablet See Rx Instructions .ROUTE 03/28/21 03/30/21 Rx .COMPLEX #30 tablet Allergies Allergy/AdvReac Type Severity Reaction Status Date / Time metoclopramide Allergy Severe Other Verified 03/30/21 09:28 Vital Signs Vital Signs - 24 hr 03/30/21 09:20 Temperature 36.3 C L Pulse Rate 68 Respiratory Rate 18 Blood Pressure 153/93 H Pulse Oximetry 97 Exam Const: General: alert Orientation/consciousness: patient oriented x3 Resp: Auscultation: clear to auscultation bilaterally Cardio: Rhythm: regular rhythm GI: GI Palp: Yes Soft to palpation and No Tenderness to palpation present (GI) Neuro: General: patient oriented x3 Assessment and Plan Assessment and plan (1) Dysphagia: Code(s): R13.10 - Dysphagia, unspecified Status: Acute Assessment and Plan: EGD with possible biopsy or dilatation or cautery.
--- NOTE | 2021-03-30 10:47 | WPDANESEPPF ---
Anes - Initial Pre Proc Eval Procedure: Operation Date: 03/30/21 10:30 Proposed Procedures p Esophagogastroduodenoscopy - Junaid Morrow MD Date/Time: 03/30/21 10:47 Surgeon: Junaid Morrow MD Pre Op Diagnosis: dysphagia Patient Data Age: 40 Gender: F Height: 1.68 m Weight: 116.1 kg Last Vital Signs Temp 97.4 F L 03/30/21 09:20 Pulse 68 03/30/21 09:20 Resp 18 03/30/21 09:20 BP 153/93 H 03/30/21 09:20 Pulse Ox 97 03/30/21 09:20 Allergies Allergy/AdvReac Type Severity Reaction Status Date / Time metoclopramide Allergy Severe Other Verified 03/30/21 09:28 Home Medications Medication Instructions Recorded Confirmed Type alprazolam 0.25 mg tablet 0.25 mg PO TID PRN #90 tablet 01/09/21 03/30/21 Rx duloxetine 30 mg capsule,delayed 30 mg PO DAILY #30 cap 01/09/21 03/30/21 Rx release nebivolol [Bystolic] 20 mg PO DAILY 03/27/21 03/30/21 History omeprazole 40 mg PO DAILY 03/27/21 03/30/21 History tizanidine 2 mg tablet See Rx Instructions .ROUTE 03/28/21 03/30/21 Rx .COMPLEX #30 tablet Patient hx anesthesia problems: none Family hx anesthesia problems: none Results Review: All pre-operative results and documents have been reviewed as part of the pre-operative evaluation. [facility] Past Medical History Medical History Anxiety and depression BMI 40.0-44.9, adult BMI greater than 40 Essential (primary) hypertension Morbid (severe) obesity due to excess calories Right low back pain Surgical History Surgical History H/O: hysterectomy History of cholecystectomy Family History Family History Father Hypertension Family history of heart disease in male family member before age 55 Peripheral artery disease Grandparent Hypertension Family history of malignant neoplasm of breast Mother Hypertension Sibling Peripheral artery disease Other Diabetes mellitus Social History Social History Smoking status: Never smoker Second hand tobacco smoke exposure: No Alcohol intake: current Drinks per week: 3 Substance use: never Substance use type: does not use Living arrangements: with family 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 Gender identity (if verbalized by the patient): Female Sexual Orientation (if Verbalized by the Patient): Straight or Heterosexual Spiritual care concerns: No Agree to blood products: Yes Anes - Eval Final PreProcedure Day of Procedure 03/30/21 10:47 Patient weight: morbidly obese Heart: regular rate and rhythm Lungs: clear to auscultation Airway: Mallampati scale class III Neurological: alert and oriented Last oral intake: >/= 8 hours ASA classification: III Emergent: no Anesthetic plan: proceed Anesthesia type and monitoring: general GIVS and standard monitoring Results Review: All pre-operative results and documents have been reviewed as part of the pre-operative evaluation. Informed Consent: The patient's anesthetic plan and its attendant risks and benefits were discussed with the patient/family/POA. Questions were solicited and answers provided to the satisfaction of the patient/family/POA.
[2021-03-30] MEDS: BENZOCAINE (*SP) 60 ML SPRAY CAN (HURRICAINE) 1 SPRAY MUCOUS MEM (10:51)
[2021-03-30 11:10] VITALS: BP 134/75; PULSE 61; RESP 19; O2SAT 98
[2021-03-30 11:20] VITALS: BP 139/71; PULSE 59; RESP 21; O2SAT 99
[2021-03-30 11:30] VITALS: BP 138/76; PULSE 62; RESP 21; O2SAT 100
== END 2021-03-30 11:52 | disposition home or self-care (01) ==
PROVIDERS: PCP Family Medicine; Visit Provider Internal Medicine Gastroenterology
PROC: 0DJ08ZZ Inspection of Upper Intestinal Tract, Via Natural or Artificial Opening Endoscopic (ICD-10-PCS; CPT 43235; principal; 2021-03-30 10:30)
DX: K22.2 Esophageal obstruction (principal); K20.0 Eosinophilic esophagitis; K44.9 Diaphragmatic hernia without obstruction or gangrene; I10 Essential (primary) hypertension; F41.8 Other specified anxiety disorders; E66.01 Morbid (severe) obesity due to excess calories; Z68.41 Body mass index [BMI] 40.0-44.9, adult
CPT/HCPCS: 43249; 88305; C1726; J2704; J7120

== ENCOUNTER 2021-06-13 09:53 | Outpatient (CLI) | payer OTHER, SELFPAY ==
--- NOTE | ~2021-06-13 | XR_ITS ---
EXAMINATION: XR hip LT min 2V DATE: 06/13/2021 10:29 INDICATION: Left hip pain. TECHNIQUE: 2 views of left hip were obtained. COMPARISON: Left hip radiographs 10/23/2010 FINDINGS: Bone alignment is normal. No fracture. There is severe left hip osteoarthritis with acetabu lar protrusio. IMPRESSION: 1. Severe left hip osteoarthritis. Reviewed, dictated and finalized at location A.
--- NOTE | ~2021-06-13 | XR_ITS ---
EXAMINATION: XR hand RT 2V EXAM DATE: 06/13/2021 10:29 INDICATION: M25.50 - Pain in unspecified joint. TECHNIQUE: Frontal and lateral projections of the right hand. There is no prior study for compariso n. FINDINGS: There is right hand polyarticular primary osteoarthritis as follows: Moderate 2nd and 5th DIP, otherwise mild to moderate DIP. There are no acute fractures or dislocations identified. There is no subcutaneous gas. The soft tissue is unremarkable. There are no radiopaque foreign bodies. IMPRESSION: Polyarticular right interphalangeal osteoarthritis, 2nd, 5th DIP joint most affected. Reviewed, dictated and finalized at location A. IMPRESSION: Polyarticular right interphalangeal osteoarthritis, 2nd, 5th DIP tiff int most affected.
--- NOTE | ~2021-06-13 | XR_ITS ---
EXAMINATION: XR hand LT 2V EXAM DATE: 06/13/2021 10:29 INDICATION: M25.50 - Pain in unspecified joint. TECHNIQUE: Left hand frontal, lateral projections obtained and reviewed. There is no prior study for comparison. FINDINGS: Left metacarpal bones are unremarkable. There is polyarticular primary osteoarthritis as follows: Moderate 2nd, 4th, 5th DIP, mild to moderate 3rd DIP, mild 2nd and 3rd PIP. There are no acu te fractures or dislocations identified. There is no subcutaneous gas. The soft tissue is unremarka ble. There are no radiopaque foreign bodies. IMPRESSION: Left hand polyarticular osteoarthritis, 2nd, 4th, 5th DIP joints most affected. Reviewed, dictated and finalized at location A. IMPRESSION: Left hand polyarticular osteoarthritis, 2nd, 4th, 5th DIP joints mo st affected.
--- NOTE | ~2021-06-13 | XR_ITS ---
EXAMINATION: XR hip RT min 2V DATE: 06/13/2021 10:29 INDICATION: Right hip pain. TECHNIQUE: 2 views of right hip were obtained. COMPARISON: Right hip radiographs 10/23/2010 FINDINGS: Bone alignment is normal. No fracture. There is mild right hip osteoarthritis. IMPRESSION: 1. Mild right hip osteoarthritis. Reviewed, dictated and finalized at location A.
[2021-06-13 10:17] LABS: Basophils Absolute Auto 0.1 K/mm3 (0.0-0.1); Basophils Percent Auto 0.8 % (0.2-1.2); Eosinophils Absolute Auto 0.2 K/mm3 (0-0.3); Eosinophils Percent Auto 2.7 % (0-4.4); Hematocrit 37.9 % (37.0-47.0); Hemoglobin 11.8 g/dL (12.0-15.0); Immature Granulocyte Absolute 0.06 K/mm3 (0.00-0.031); Immature Granulocyte Percent A 0.7 % (0-0.5); Lymphocytes Absolute Auto 1.97 K/mm3 (0.9-3.2); Lymphocytes Percent Auto 22.3 % (18.3-44.2); Mean Corpuscular HGB Conc 31.1 g/dl (32-36); Mean Corpuscular Hemoglobin 29.6 pg (26-34); Mean Platelet Volume 9.5 fl (7.4-10.4); Monocytes Absolute Auto 0.6 K/mm3 (0.1-0.6); Monocytes Percent Auto 7.1 % (2.6-8.5); Neutrophils Absolute Auto 5.9 K/mm3 (1.3-6.7); Neutrophils Percent Auto 66.4 % (45.5-73.1); Platelet Count Result 329 k/mm3 (150-375); Red Blood Count 3.99 M/mm3 (4.2-5.4); Red Cell Distribution Width 13.7 % (11.5-14.5); White Blood Count 8.8 K/mm3 (4.5-10.0)
[2021-06-13 10:34] LABS: Rheumatoid Factor < 8.6 IU/ML (<12)
[2021-06-13 10:35] LABS: Anion Gap 7 mmol/L (8-16); Blood Urea Nitrogen 11 mg/dL (7-17); CRP 1.1 mg/dL (<1.0); Calcium 8.8 mg/dL (8.4-10.2); Carbon Dioxide 28 mmol/L (22-30); Chloride 103 mmol/L (98-107); Estimated Glomerular Filt Rate > 60; Glucose 162 mg/dL (65-110); Potassium 3.9 mmol/L (3.4-5.0); Sodium 138 mmol/L (137-145)
[2021-06-13 11:03] LABS: Vitamin D 25 Hydroxy 30.9 ng/mL
[2021-06-13 11:32] LABS: Erythrocyte Sedimentation Rate 22 mm/hr (0-20)
== END 2021-06-13 09:54 | disposition home or self-care (01) ==
LOC: ANHLAB 09:56
PROVIDERS: PCP Family Medicine; Visit Provider Nurse Practitioner Family
DX: M15.1 Heberden's nodes (with arthropathy) (principal); G25.81 Restless legs syndrome; D64.9 Anemia, unspecified; D72.829 Elevated white blood cell count, unspecified; M19.042 Primary osteoarthritis, left hand; M19.041 Primary osteoarthritis, right hand; M16.0 Bilateral primary osteoarthritis of hip
CPT/HCPCS: 36415; 73120; 73502; 80048; 82306; 82607; 85025; 85652; 86038; 86140; 86430

== ENCOUNTER 2021-07-20 00:37 | Day surgery (SDC) | payer OTHER, SELFPAY ==
[2021-06-30 12:41] VITALS: BMI 42.0
--- NOTE | 2021-07-19 09:56 | PM.HPGS ---
History of Present Illness History of Present Illness Consent: Risks, benefits, and alternatives have been discussed and questions answered. Patient agrees to proceed with procedure. Chief complaint: dysphagia Narrative: Ольга Parish is a 40 year old female who was found to have a high-grade stricture of the distal esophagus in March. she had initially presented to the emergency room March 22 with a food impaction. She had made a home made pot pie and realized that food was not going down. Emergency EGD with removal of multiple pieces of food was successful. I had noted severe inflammation and narrowing of the distal esophagus. She was then brought in as an outpatient a week later at which time we were able to dilate the lower esophageal sphincter up to 15 mm. Biopsies were taken at that time which did reveal severe inflammation but also changes consistent with eosinophilic esophagitis. for the past few years she had been taking omeprazole 20 mg a day for heartburn and occasional dysphagia. Since her procedure we put her on 40 mg per day. She feels that she is a bit better but still having difficulty swallowing from time to time, particularly solid foods such as bread and meat. She points to the upper sternal area as the area where it seems to get caught. Sometimes a drink or 2 will help something go down. She rarely needs to leave the table for more than a minute or so. She is not losing weight. She has no abdominal pain nausea or vomiting. She has had no change in bowel habits. We had discussed the fact that she would probably need to be dilated further but also because of the eosinophilic esophagitis, if she has not responded to PPI alone, we would add fluticasone Review of Systems Review of Systems: All systems reviewed & are unremarkable except as noted in HPI and below PMFSH Past Medical History Medical History Anxiety and depression BMI 40.0-44.9, adult BMI greater than 40 Essential (primary) hypertension Morbid (severe) obesity due to excess calories Right low back pain Surgical History Surgical History H/O: hysterectomy History of cholecystectomy Family History Family History Father Hypertension Family history of heart disease in male family member before age 55 Peripheral artery disease Grandparent Hypertension Family history of malignant neoplasm of breast Mother Hypertension Sibling Peripheral artery disease Other Diabetes mellitus Social History Social History Second hand tobacco smoke exposure: No Alcohol intake: current Drinks per week: 3 Substance use: never Substance use type: does not use Living arrangements: with family 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 Gender identity (if verbalized by the patient): Female Sexual Orientation (if Verbalized by the Patient): Straight or Heterosexual Spiritual care concerns: No Agree to blood products: Yes Meds Home Medications and Allergies Home Medications Medication Instructions Recorded Confirmed Type omeprazole 40 mg PO DAILY 03/27/21 07/20/21 History fluticasone propionate 220 2 puff INHALATION Q12H #12 g 05/16/21 06/30/21 Rx mcg/actuation HFA aerosol inhaler alprazolam 0.25 mg tablet 0.25 mg PO TID PRN #90 tablet 05/30/21 06/30/21 Rx syringe with needle, safety 1 mL #10 ea 06/13/21 06/15/21 Rx 25 gauge x 1 tramadol 50 mg tablet 50 mg PO Q6H PRN #60 tablet 06/29/21 06/30/21 Rx nebivolol 20 mg PO DAILY 06/30/21 07/20/21 History tizanidine 2 mg PO PRN PRN 06/30/21 06/30/21 History cyanocobalamin (vitamin B-12) 1,000 mcg IM WEEKLY 28 Days #4 ml 07/04/21 07/20/21 Rx 1,000 mcg/mL injection solution duloxetine 30 mg capsule,delayed See Rx Instruction
[2021-07-20 06:23] VITALS: BP 146/94; PULSE 72; RESP 18; TEMP 36.4; O2SAT 98
[2021-07-20] MEDS: LACTATED RINGERS 1,000 ML 150 ML IV CONT (06:32)
--- NOTE | 2021-07-20 07:16 | WPDANESEPPF ---
Anes - Initial Pre Proc Eval Procedure: Operation Date: 07/20/21 07:30 Proposed Procedures p Esophagogastroduodenoscopy - Junaid Morrow MD Date/Time: 07/20/21 07:16 Surgeon: Junaid Morrow MD Pre Op Diagnosis: dysphagia Patient Data Age: 40 Gender: F Height: 1.68 m Weight: 118.3 kg Last Vital Signs Temp 97.6 F 07/20/21 06:23 Pulse 72 07/20/21 06:23 Resp 18 07/20/21 06:23 BP 146/94 H 07/20/21 06:23 Pulse Ox 98 07/20/21 06:23 Allergies Allergy/AdvReac Type Severity Reaction Status Date / Time metoclopramide Allergy Severe Other Verified 07/20/21 06:20 Home Medications Medication Instructions Recorded Confirmed Type omeprazole 40 mg PO DAILY 03/27/21 07/20/21 History fluticasone propionate 220 2 puff INHALATION Q12H #12 g 05/16/21 06/30/21 Rx mcg/actuation HFA aerosol inhaler alprazolam 0.25 mg tablet 0.25 mg PO TID PRN #90 tablet 05/30/21 06/30/21 Rx syringe with needle, safety 1 mL #10 ea 06/13/21 06/15/21 Rx 25 gauge x 1 tramadol 50 mg tablet 50 mg PO Q6H PRN #60 tablet 06/29/21 06/30/21 Rx nebivolol 20 mg PO DAILY 06/30/21 07/20/21 History tizanidine 2 mg PO PRN PRN 06/30/21 06/30/21 History cyanocobalamin (vitamin B-12) 1,000 mcg IM WEEKLY 28 Days #4 ml 07/04/21 07/20/21 Rx 1,000 mcg/mL injection solution duloxetine 30 mg capsule,delayed See Rx Instructions .ROUTE 07/18/21 07/20/21 Rx release .COMPLEX #90 cap Patient hx anesthesia problems: none Family hx anesthesia problems: none Results Review: All pre-operative results and documents have been reviewed as part of the pre-operative evaluation. [facility] Past Medical History Medical History Anxiety and depression BMI 40.0-44.9, adult BMI greater than 40 Essential (primary) hypertension Morbid (severe) obesity due to excess calories Right low back pain Surgical History Surgical History H/O: hysterectomy History of cholecystectomy Family History Family History Father Hypertension Family history of heart disease in male family member before age 55 Peripheral artery disease Grandparent Hypertension Family history of malignant neoplasm of breast Mother Hypertension Sibling Peripheral artery disease Other Diabetes mellitus Social History Social History Second hand tobacco smoke exposure: No Alcohol intake: current Drinks per week: 3 Substance use: never Substance use type: does not use Living arrangements: with family 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 Gender identity (if verbalized by the patient): Female Sexual Orientation (if Verbalized by the Patient): Straight or Heterosexual Spiritual care concerns: No Agree to blood products: Yes Anes - Eval Final PreProcedure Day of Procedure 07/20/21 07:16 Patient weight: morbidly obese Heart: regular rate and rhythm Lungs: clear to auscultation Airway: Mallampati scale class III Neurological: alert and oriented Last oral intake: >/= 8 hours ASA classification: III Emergent: no Anesthetic plan: proceed Anesthesia type and monitoring: general GIVS and standard monitoring Results Review: All pre-operative results and documents have been reviewed as part of the pre-operative evaluation. Informed Consent: The patient's anesthetic plan and its attendant risks and benefits were discussed with the patient/family/POA. Questions were solicited and answers provided to the satisfaction of the patient/family/POA.
[2021-07-20] MEDS: BENZOCAINE (*SP) 60 ML SPRAY CAN (HURRICAINE) 1 SPRAY MUCOUS MEM (07:32)
[2021-07-20 07:43] VITALS: BP 120/76; PULSE 66; RESP 23; O2SAT 98
[2021-07-20 07:53] VITALS: BP 121/86; PULSE 74; RESP 23; O2SAT 99
[2021-07-20 08:03] VITALS: BP 136/86; PULSE 63; RESP 22; O2SAT 98
== END 2021-07-20 08:14 | disposition home or self-care (01) ==
PROVIDERS: PCP Family Medicine; Visit Provider Internal Medicine Gastroenterology
PROC: 0DJ08ZZ Inspection of Upper Intestinal Tract, Via Natural or Artificial Opening Endoscopic (ICD-10-PCS; CPT 43235; principal; 2021-07-20 07:30)
DX: R13.10 Dysphagia, unspecified (principal); K22.2 Esophageal obstruction; F41.8 Other specified anxiety disorders; I10 Essential (primary) hypertension; E66.01 Morbid (severe) obesity due to excess calories; Z68.41 Body mass index [BMI] 40.0-44.9, adult; Z90.49 Acquired absence of other specified parts of digestive tract
CPT/HCPCS: 43249; C1726; J2704; J7120

== ENCOUNTER 2021-08-22 12:41 | Outpatient (CLI) | payer OTHER, SELFPAY ==
--- NOTE | ~2021-08-22 | CT_ITS ---
EXAMINATION: CT hip LT wo con DATE: 08/22/2021 12:59 INDICATION: Chronic left hip pain TECHNIQUE: High resolution computed tomography (CT) of the left hip was performed without intravenous contrast. Additional sagittal and coronal reconstructions were performed. Automated exposure control and iterative reconstruction technique were employed. The dose-length product was 420.16 mGy-cm. COMPARISON: None FINDINGS: Severe left hip osteoarthritis with moderate size marginal osteophytes about the left femoral head an d acetabulum and prominent subarticular cystic changes extending from anterior to posteriorly across the superior acetabulum with additional scattered subarticular cystic change at the left femoral head . There is remodeling of the acetabulum including protrusio acetabula. No associated left hip joint e ffusion. No fracture or suspected avascular necrosis. Small fat-containing left inguinal hernia. No p athologically enlarged lymphadenopathy in the left groin are visualized left hemipelvis. IMPRESSION: 1. Severe left hip osteoarthritis. Reviewed, dictated and finalized at location A.
== END 2021-08-22 12:42 ==
PROVIDERS: PCP Family Medicine; Visit Provider Orthopaedic Surgery
DX: M25.552 Pain in left hip (principal); M16.12 Unilateral primary osteoarthritis, left hip
CPT/HCPCS: 73700

== ENCOUNTER 2021-10-17 07:51 | Outpatient (CLI) | payer OTHER, SELFPAY ==
[2021-10-17 09:05] LABS: Basophils Absolute Auto 0.1 K/mm3 (0.0-0.1); Basophils Percent Auto 0.7 % (0.2-1.2); Eosinophils Absolute Auto 0.3 K/mm3 (0-0.3); Eosinophils Percent Auto 2.5 % (0-4.4); Hematocrit 40.7 % (37.0-47.0); Hemoglobin 12.7 g/dL (12.0-15.0); Immature Granulocyte Absolute 0.04 K/mm3 (0.00-0.031); Immature Granulocyte Percent A 0.3 % (0-0.5); Lymphocytes Absolute Auto 2.34 K/mm3 (0.9-3.2); Lymphocytes Percent Auto 19.2 % (18.3-44.2); Mean Corpuscular HGB Conc 31.2 g/dl (32-36); Mean Corpuscular Hemoglobin 28.9 pg (26-34); Mean Corpuscular Volume 92.5 fl (80-100); Mean Platelet Volume 9.2 fl (7.4-10.4); Monocytes Absolute Auto 0.7 K/mm3 (0.1-0.6); Monocytes Percent Auto 5.8 % (2.6-8.5); Neutrophils Absolute Auto 8.7 K/mm3 (1.3-6.7); Neutrophils Percent Auto 71.5 % (45.5-73.1); Platelet Count Result 371 k/mm3 (150-375); Red Cell Distribution Width 13.8 % (11.5-14.5); White Blood Count 12.2 K/mm3 (4.5-10.0)
[2021-10-17 09:08] LABS: Hemoglobin A1C 5.8 % (<5.7)
[2021-10-17 09:10] LABS: Albumin Level 4.5 g/dL (3.5-5.1); Anion Gap 8 mmol/L (8-16); Blood Urea Nitrogen 7 mg/dL (7-17); Calcium 9.2 mg/dL (8.4-10.2); Carbon Dioxide 29 mmol/L (22-30); Chloride 99 mmol/L (98-107); Estimated Glomerular Filt Rate > 60; Glucose 94 mg/dL (65-110); INR 1.1; Potassium 4.2 mmol/L (3.4-5.0); Prothrombin Time 13.3 Seconds (11.1-14.7); Sodium 136 mmol/L (137-145)
[2021-10-17 09:11] LABS: Partial Thromboplastin Time 29.8 SECONDS (22.3-36.8)
[2021-10-17 09:14] LABS: Hyaline Casts Urine 30-49 /lpf; Mucus Urine Few /lpf; Squamous Epithelial Cell Urine Many /hpf (Few)
[2021-10-17 09:15] LABS: Add Urine Microscopic? YES; Appearance Urine Slightly Cloudy (Clear); Bilirubin Urine Negative (Negative); Blood Urine Negative (Negative); Color Urine Yellow (Yellow); Glucose Urine UA Negative (Negative); Ketones Urine Negative (Negative); Leukocyte Esterase Ur Negative LEU/UL (Negative); Nitrate Urine Negative (Negative); Protein Urine Trace mg/dL (Negative); Specific Grav Ur >= 1.030 (1.001-1.035)
[2021-10-17 09:21] LABS: Urine Cotinine NEGATIVE
== END 2021-10-17 07:52 | disposition home or self-care (01) ==
LOC: ANHSURGERY 07:54
PROVIDERS: PCP Family Medicine; Visit Provider Orthopaedic Surgery
DX: M16.12 Unilateral primary osteoarthritis, left hip (principal)
CPT/HCPCS: 80048; 80307; 81001; 82040; 83036; 85025; 85610; 85730; 87081

== ENCOUNTER 2021-10-31 01:16 | Day surgery (SDC) | payer OTHER, SELFPAY ==
[2021-10-17 08:01] VITALS: BMI 39.6
--- NOTE | 2021-10-17 08:18 | PC.NURSE ---
Report to the Outpatient Waiting Room, entrance under the green pavilion located off [facility], at time _0600 on date __10/31/21 . OR Time: . - You and your visitor will be asked a series of questions to screen for COVID 19 for your protection. - Only one visitor is allowed at this time. - The patient visitor is requested to leave or wait in car when not with patient. - A mask is required within the hospital. Patients may have clear liquids (water, carbonated beverages, clear teas, apple juice) until 3 hours prior to surgery with a maximum of 20 ounces. - No food from midnight until time of surgery - Infants may have breast milk until 4 hours before surgery, infant formula 6 hours prior to surgery. - Children will be allowed to drink immediately following surgery. If applicable, please bring a bottle or sippy cup to assist with drinking. Juice, water, soda, and popsicles are readily available. For infants on formula, please bring formula the day of surgery. Pacifiers are allowed. Take the following medications with a SIP of water the morning of surgery: ___ALPRAZOLAM,DULOXETINE,INHALER,NEBIVOLOL Medications to discontinue per physician ___NONE Date to take last dose Please no make-up, nail armenian, hairspray, perfume, deodorant, or body powder the day of surgery. No jewelry (including any body piercings) or valuables the day of surgery, leave them at home. Please take a shower or bath the night before, or the morning of, surgery with an antibacterial soap. Wear comfortable, loose fitting clothing. Children are encouraged to wear pajamas. - Jewelry must be removed prior to entering the operating room. Rings and piercings that are not removed may be cut off. - The hospital will not accept responsibility for valuables. - Please leave all valuables, including medications, at home the day of surgery. If you are going home after surgery, a licensed rickshaw driver must drive you home. - NO public transportation without another adult. - We recommend that an adult stay with you for 24 hours following discharge. - We also recommend that you do not drive, make important decision, drink alcoholic beverages, or take any drugs that were not prescribed by your health care provider for at least 24 hours after your discharge time. For Pediatric surgeries, we recommend two adults accompany the child home (only one inside the building at this time). Follow any additional instructions given to you from your surgeon. If you or anyone in your household have experienced Covid symptoms in the past week, please notify your surgeon or the nurse liaison at the phone number below for possible testing. VERBAL AND WRITTEN instructions given to ___PATIENT and asked if any additional questions and then verbalized understanding. Patient advised to call surgeon office or pre surgery nurse liaison [phone] if any additional questions.
[2021-10-17 08:50] VITALS: BP 145/90; PULSE 81; RESP 18; TEMP 36.9; O2SAT 99
--- NOTE | 2021-10-30 11:32 | WPDANESEPPF ---
Anes - Initial Pre Proc Eval Procedure: Operation Date: 10/31/21 07:30 Proposed Procedures p Left Total Hip Arthroplasty - Stephen Amezquita MD Date/Time: 10/30/21 11:32 Surgeon: Stephen Amezquita MD Pre Op Diagnosis: left hip DJD Patient Data Age: 40 Gender: F Height: 1.68 m Weight: 111.3 kg Last Vital Signs Temp 36.9 C 10/17/21 08:50 Pulse 81 10/17/21 08:50 Resp 18 10/17/21 08:50 BP 145/90 H 10/17/21 08:50 Pulse Ox 99 10/17/21 08:50 O2 Del Method Room Air 10/17/21 08:50 Allergies Allergy/AdvReac Type Severity Reaction Status Date / Time metoclopramide Allergy Severe Other Verified 10/31/21 06:22 Home Medications Medication Instructions Recorded Confirmed Type omeprazole 20 mg capsule,delayed 40 mg PO DAILY 03/27/21 10/31/21 History release fluticasone propionate 220 2 puff inhalation Q12H #12 grams 05/16/21 10/31/21 Rx mcg/actuation HFA aerosol inhaler syringe with needle, safety 1 mL #10 ea 06/13/21 09/28/21 Rx 25 gauge x 1 nebivolol 20 mg tablet 20 mg PO DAILY 06/30/21 10/31/21 History tramadol 50 mg tablet 50 mg PO Q6H PRN pain #60 tabs 10/05/21 10/31/21 Rx tizanidine 2 mg tablet 2 mg PO PRN PRN Muscle Spasticity 10/09/21 10/31/21 Rx #30 tabs duloxetine 30 mg capsule,delayed See Rx Instructions .Route 10/13/21 10/31/21 Rx release .COMPLEX #90 caps acetaminophen 500 mg tablet 1,000 mg PO BID PRN Pain 10/17/21 10/31/21 History alprazolam 0.25 mg tablet 0.25 mg PO PRN PRN anxiety 10/17/21 10/31/21 History Patient hx anesthesia problems: none Family hx anesthesia problems: none Results Review: All pre-operative results and documents have been reviewed as part of the pre-operative evaluation. [facility] Past Medical History Medical History Anxiety and depression BMI 40.0-44.9, adult BMI greater than 40 Depression Essential (primary) hypertension Left hip pain Morbid (severe) obesity due to excess calories ADILSON (obstructive sleep apnea) Right low back pain Surgical History Surgical History H/O: hysterectomy History of History of cataract extraction History of cholecystectomy History of surgical procedure on eye proper using laser Family History Family History Father Hypertension Family history of heart disease in male family member before age 55 Peripheral artery disease Grandparent Hypertension Family history of malignant neoplasm of breast Mother Hypertension Sibling Peripheral artery disease Other Asthma Diabetes mellitus Heart disease High cholesterol Social History Social History Smoking status: Never smoker Second hand tobacco smoke exposure: No Additional smoking assessment comments: DENIES ANY FORM OF TOBACCO USE Alcohol intake: current Drinks per week: 3 Substance use: never Substance use type: does not use Living arrangements: with family 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 Gender identity (if verbalized by the patient): Female Sexual Orientation (if Verbalized by the Patient): Straight or Heterosexual Spiritual care concerns: No Agree to blood products: Yes Anes - Eval Final PreProcedure Day of Procedure 10/30/21 11:32 Patient weight: morbidly obese Heart: regular rate and rhythm Lungs: clear to auscultation Airway: Mallampati scale class III Neurological: alert and oriented Last oral intake: >/= 8 hours ASA classification: III Emergent: no Anesthetic plan: proceed Anesthesia type and monitoring: general ETT and standard monitoring Results Review: All pre-operative results and documents have been reviewed as part of the pre-operative evaluation. Informed Consent: The patient's anesthetic plan and its attendant risks and benefits w
[2021-10-31] VITALS (16 sets, daily range): BP systolic 115–158; BP diastolic 67–90; PULSE 72–106; RESP 14–20; TEMP 36.3–37; O2SAT 93–100
--- NOTE | ~2021-10-31 | XR_ITS ---
EXAMINATION: XR hip LT 1V DATE: 10/31/2021 12:44 INDICATION: Total left hip arthroplasty. Postop. TECHNIQUE: A single view of left hip was obtained. COMPARISON: Left hip radiographs 09/28/2021 FINDINGS: There is a total left hip arthroplasty in near-anatomic alignment. No fracture. There is ga s in the soft tissues, consistent with recent surgery. IMPRESSION: 1. Total left hip arthroplasty in near-anatomic alignment. Reviewed, dictated and finalized at location A.
[2021-10-31] MEDS: ACETAMINOPHEN 500 MG TABLET 1000 MG PO (06:21)
[2021-10-31] MEDS: LACTATED RINGERS 1,000 ML 30 ML IV CONT ×2 (06:43→12:33)
[2021-10-31] MEDS: TRANEXAMIC ACID 1,000MG/ISO100 1,000 MG/100 ML BAG 200 MG IVPB (07:02)
--- NOTE | 2021-10-31 07:09 | WPDHPUPDATE1 ---
History and Physical Update Update Date/Time: 10/31/21 07:09 History and Physical has been reviewed, including an updated exam of the patient. There are NO changes in the patient's condition. Risks, benefits, and alternatives have been discussed and questions answered. Patient agrees to proceed with procedure.
--- NOTE | 2021-10-31 07:12 | WPDHPUPDATE1 ---
History and Physical Update Update Date/Time: 10/31/21 07:12 History and Physical has been reviewed, including an updated exam of the patient. There are NO changes in the patient's condition. Risks, benefits, and alternatives have been discussed and questions answered. Patient agrees to proceed with procedure.
[2021-10-31] MEDS: ceFAZolin 2 GM/D5W 50 ML 2 GM/50 ML BAG IVPB ×2 (07:26→15:41)
[2021-10-31] MEDS: ceFAZolin SODIUM 1 GM VIAL 2 GM (11:24)
[2021-10-31] MEDS: TRANEXAMIC ACID 1,000 MG/10 ML AMPUL 1000 MG IV PUSH (11:34)
--- NOTE | 2021-10-31 12:12 | SUR.OPER ---
Noted at closing a 1 1/2 skin abrasion red in color, distal left hip incision. Dr Amezquita assessed and aware of abrasion. To apply mepilex dressing as per surgeon.
[2021-10-31] MEDS: fentaNYL CITRATE INJ (*CRX) 100 MCG/2 ML VIAL 25 MCG IV PUSH ×8 (12:45→13:45)
--- NOTE | 2021-10-31 13:43 | P.OP_ITS ---
Procedure Note - Detailed Date of Procedure 10/31/21 Pre-op Diagnosis left hip DJD Post-op Diagnosis Same Procedure Performed L DANIEL Surgeon Stephen Amezquita MD Anesthesia General Description of Procedure THE PATIENT WAS TAKEN TO THE OPERATING ROOM IN STABLE CONDITION AND WAS PLACED IN THE LATERAL DECUBITUS AND THE LEFT LOWER EXTREMITY WAS PREPPED AND DRAPED IN THE STERILE FASHION. INCISION WAS MADE IN THE POSTERIOR LATERAL SIDE OF THE HIP, DOWN TO THE FASCIA LAYER. THE FASCIA WAS INCISED. THE HIP WAS EXPOSED. THE SHORT EXTERNAL ROTATORS WERE EXPOSED. THE SCIATIC NERVE WAS IDENTIFIED. INCISION WAS MADE THROUGH THE SHORT EXTERNAL ROTATORS AND THE CAPSULE OF THE HIP JOINT. THE HIP WAS DISLOCATED. AN OSTEOTOMY WAS MADE TO THE FEMORAL NECK ABOUT 1 CM PROXIMAL TO THE LESSER TROCHANTER. THE ACETABULUM WAS EXPOSED. THERE WAS SEVERE DJD SEEN. THERE WAS ALSO ACETABULUM PROTRUSIO. THE DEFECT WAS APPROX IMATELY 3 CM IN DIAMETER WITH ONLY AN EGG SHELL OF MEDIAL WALL REMAINING. THERE WAS ALSO SOME SUPERIOR LATERAL DEFICIENT BONE. BEGINNING WITH A 44 REAMER THE ACETABULUM WAS REAMED TO 51. A 51 MM TRIAL WAS PLACED IN 35 DEG OF ABDUCTION AND ANTEVERSION WAS IN ALIGNMENT WITH THE TRANS ACETABULAR LIGAMENT. THE FIT WAS GOOD. THERE WAS GOOD COVERAGE ABOUT THE TRIAL COMPONENT. THE TRIAL WAS REMOVED. BONE GRAFT FROM THE REAMING AND FROM THE FEMORAL HEAD WAS USED IN THE MEDIAL WALL DEFECT. THERE WAS A NICE STABLE BED OF BONE GRAFT AFTER USING A REAMER ON REVERSE TO PACK THE DEFECT. A 52 MM BIOMET G7 COMPONENT WAS THEN TAPPED IN TO PLACE IN 35 DEG OF ABDUCTION AND ANTEVERSION IN ALIGNMENT WITH THE TRANSVERSE ACETABULAR LIGAMENT. THE FIT GOOD. 3 SCREWS WERE PLACED TO SECURE THE COMPONENT. THEY ALL HAD VERY GOOD BITES. THE ACETABULAR LINER WAS PLACED AND CHECKED FOR STABILITY. NEXT THE FEMUR WAS PREPARED WITH INITIAL CANAL FINDER THEN SEQUENTIAL BROACHING WITH A TAPERLOC HIP SYSTEM, UNTIL A 9 BROACH FIT WELL IN 15 OF ANTEVERSION. A +6 HIGH OFFSET NECK WITH 36 MM HEAD TRIAL WAS PLACED. THE SHUCK TEST WAS EXCELLENT AND THE STABILITY IN FLEXION AND ROTATION WAS EXCELLENT. LEG LENGTHS WERE GROSSLY EQUAL. TRIALS WERE REMOVED. A BIOMET TAPERLOC 9 STEM WAS PLACED WITH A HIGH OFFSET NECK THE FIT WAS EXCELLENT IN 15 DEG OF ANTEVERSION. A +6 36 MM CERAMIC FEMORAL HEAD WAS PLACED. THE HIP WAS TRIALED AND THE STABILITY WAS EXCELLENT WERE THE LEG LENGTHS AND THE SHUCK TEST. THE WOUND WAS IRRIGATED WITH STERILE BETADINE AND WATER FOR 3 MIN. THEN WASHED AGAIN. THE CAPSULE AND THE EXTERNAL ROTATORS WERE APPROXIMATED WITH NUMBER 1 VICRYL. THE FASCIA WITH No 2 QUIL AND THE SUB CUTANEOUS LAYER WITH 2-0 ABSORBABLE SUTURE WITH A RUNNING 3-0 SUBCUTICULAR LAYER WELL. DERMABOND WAS PLACED AND STERILE DRESSING WAS APPLIED. PATIENT WAS PLACED BACK ON TO THE SUPINE POSITION AND WAS EXTUBATED Estimated Blood Loss -900.0 Urine Output -200.0 Complications No immediate complications Condition Stable Disposition PACU
[2021-10-31] MEDS: HYDROmorphone HCL INJ (*CRX) 1 MG/ML SYR 0.5 MG IV PUSH ×2 (14:01→14:13)
--- NOTE | 2021-10-31 14:53 | ADMGEN ---
This patient, Ольга Parish, was admitted to Medical Room 257-01. Patient/family oriented to hospital policies and general routines including ID bracelet, bed and alarms, visiting hours, pain management, procedures, bathroom and other care routines, personal items, smoking policy, room service/diet, and visiting hours. Information on how to activate the Rapid Response Team has been discussed. Patient/Family are encouraged to report perceived risks to care and to ask questions if they do not understand what they are told or what they should do.
[2021-10-31] MEDS: DEXTROSE 5%/0.45% SOD CHL 1,000 ML 80 ML IV CONT (15:23)
[2021-10-31] MEDS: MORPHINE SULFATE (*CRX) 4 MG/ML INJ 3 MG IV PUSH ×2 (15:23→18:24)
[2021-10-31] MEDS: KETOROLAC 15 MG/ML VIAL (*BKC) IV PUSH (17:58)
[2021-10-31] MEDS: SENNA/DOCUSATE SODIUM TABLET 2 TAB PO (17:59)
[2021-10-31] MEDS: ASPIRIN 325 MG ENTERIC TABLET PO (20:55)
[2021-10-31] MEDS: HYDROcodone/acetaminophen (*CRX) 7.5-325 MG TABLET 1 TAB PO (20:55)
[2021-10-31] MEDS: FLUTICASONE PROP 220 MCG (*SP) 12 GM INHALER 2 PUFF INHALATION (21:49)
[2021-10-31] MEDS: diazePAM (*CRX) 5 MG TABLET PO (22:41)
[2021-11-01] MEDS: ceFAZolin 2 GM/D5W 50 ML 2 GM/50 ML BAG IVPB ×2 (00:16→08:11)
[2021-11-01] MEDS: KETOROLAC 15 MG/ML VIAL (*BKC) IV PUSH ×3 (00:16→11:59)
[2021-11-01 00:49] VITALS: BP 120/72; PULSE 97; RESP 18; TEMP 36.4; O2SAT 96
[2021-11-01] MEDS: HYDROcodone/acetaminophen (*CRX) 7.5-325 MG TABLET 1 TAB PO ×3 (03:29→14:20)
[2021-11-01 04:23] VITALS: BP 128/68; PULSE 99; RESP 20; TEMP 36.2; O2SAT 99
[2021-11-01 05:57] LABS: Basophils Percent Auto 0.2 % (0.2-1.2); Hematocrit 28.4 % (37.0-47.0); Immature Granulocyte Absolute 0.13 K/mm3 (0.00-0.031); Immature Granulocyte Percent A 0.7 % (0-0.5); Lymphocytes Absolute Auto 1.57 K/mm3 (0.9-3.2); Lymphocytes Percent Auto 9.1 % (18.3-44.2); Mean Corpuscular HGB Conc 31.7 g/dl (32-36); Mean Corpuscular Hemoglobin 29.6 pg (26-34); Mean Corpuscular Volume 93.4 fl (80-100); Mean Platelet Volume 9.3 fl (7.4-10.4); Monocytes Absolute Auto 1.3 K/mm3 (0.1-0.6); Monocytes Percent Auto 7.7 % (2.6-8.5); Neutrophils Absolute Auto 14.3 K/mm3 (1.3-6.7); Neutrophils Percent Auto 82.3 % (45.5-73.1); Platelet Count Result 262 k/mm3 (150-375); Red Blood Count 3.04 M/mm3 (4.2-5.4); Red Cell Distribution Width 13.6 % (11.5-14.5); White Blood Count 17.3 K/mm3 (4.5-10.0)
[2021-11-01 06:13] LABS: Anion Gap 7 mmol/L (8-16); Blood Urea Nitrogen 10 mg/dL (7-17); Calcium 8.3 mg/dL (8.4-10.2); Carbon Dioxide 29 mmol/L (22-30); Chloride 98 mmol/L (98-107); Estimated CRCL calculation 134 ml/min; Estimated Glomerular Filt Rate > 60; Glucose 136 mg/dL (65-110); Potassium 4.3 mmol/L (3.4-5.0); Sodium 134 mmol/L (137-145)
--- NOTE | 2021-11-01 07:23 | PM.PNORT ---
Subjective Subjective Date/Time Seen: 11/01/21 07:23 POD 1 DOING WELL. NO CALF PAIN. OK TO DC HOME F/U IN 3 WEEKS. STRICT TOE TOUCH WEIGHT BEARING FOR AT LEAST 6 WEEKS WAS DISCUSSED WAS DISCUSSED. Exam Extrem: Other: VSS AFEBRILE DRESSING DRY NV INTACT DRESSING DRY CALF SOFT NON TENDER Objective Data Vital Signs Vital Signs: Vital Signs - 24 hr 10/31/21 12:33 10/31/21 12:45 10/31/21 13:00 Temperature 36.4 C L Pulse Rate 86 85 92 Respiratory Rate 15 18 18 Blood Pressure 144/74 H 136/79 158/78 H Pulse Oximetry 97 100 100 Oxygen Delivery Simple Face Mask Simple Face Mask Simple Face Mask Oxygen Flow Rate 6 6 6 10/31/21 13:15 10/31/21 13:30 10/31/21 13:45 Temperature Pulse Rate 93 102 H 97 Respiratory Rate 14 16 18 Blood Pressure 141/87 H 147/84 H 143/81 H Pulse Oximetry 98 93 96 Oxygen Delivery Room Air Room Air Nasal Cannula Oxygen Flow Rate 2 10/31/21 14:00 10/31/21 14:15 10/31/21 14:30 Temperature 36.9 C Pulse Rate 96 98 102 H Respiratory Rate 14 16 18 Blood Pressure 142/86 H 143/75 H 131/70 Pulse Oximetry 96 98 98 Oxygen Delivery Nasal Cannula Nasal Cannula Nasal Cannula Oxygen Flow Rate 2 2 2 10/31/21 14:45 10/31/21 15:00 10/31/21 15:32 Temperature 36.6 C 37.0 C 36.9 C Pulse Rate 99 106 H 97 Respiratory Rate 18 18 18 Blood Pressure 127/68 115/78 123/67 Pulse Oximetry 98 96 94 Oxygen Delivery Oxygen Flow Rate 10/31/21 16:04 10/31/21 16:07 10/31/21 20:25 Temperature 36.4 C L 36.3 C L Pulse Rate 101 H 100 Respiratory Rate 20 20 Blood Pressure 129/75 120/69 Pulse Oximetry 96 98 Oxygen Delivery Room Air Oxygen Flow Rate 10/31/21 21:50 10/31/21 20:00 11/01/21 00:49 Temperature 36.4 C L Pulse Rate 78 97 Respiratory Rate 16 18 Blood Pressure 120/72 Pulse Oximetry 96 Oxygen Delivery Room Air Oxygen Flow Rate 11/01/21 04:23 Temperature 36.2 C L Pulse Rate 99 Respiratory Rate 20 Blood Pressure 128/68 Pulse Oximetry 99 Oxygen Delivery Oxygen Flow Rate Intake/Output Intake/Output: Intake & Output 10/29/21 10/30/21 10/31/21 11/01/21 23:59 23:59 23:59 23:59 Intake Total 1190 2100 Output Total 80 Balance 1110 2100 Meds/Results Medications: Active Medications Generic Name Dose Route Start Last Admin Trade Name Freq PRN Reason Stop Dose Admin Acetaminophen 1,000 mg 10/31/21 14:38 Acetaminophen 500 Mg Tablet PO BID PRN MILD PAIN 1-3 Hydrocodone Bitart/Acetaminophen 1 tab 10/31/21 14:38 11/01/21 03:29 Hydrocodone/Acetaminophen (*Crx) 7.5-325 Mg Tablet PO 1 tab Q3H PRN Administration Pain Rated 4-6 Alprazolam 0.25 mg 10/31/21 14:38 Alprazolam (*Crx) 0.25 Mg Tablet PO PRN PRN anxiety Aspirin 325 mg 10/31/21 21:00 10/31/21 20:55 Aspirin 325 Mg Enteric Tablet PO 325 mg Q12HR ROCÍO Administration Diazepam 5 mg 10/31/21 14:38 10/31/21 22:41 Diazepam (*Crx) 5 Mg Tablet PO 5 mg Q6H PRN Administration Anxiety/Muscle Spasm Duloxetine HCl 30 mg 11/01/21 09:00 Duloxetine Hcl 30 Mg Capsule.Dr BY MOUTH DAILY ROCÍO Fluticasone Propionate 2 puff 10/31/21 20:00 10/31/21 21:49 Fluticasone Prop 220 Mcg (*Sp) 12 Gm Inhaler INHALATION 2 puff Q12HRT ROCÍO Administration Hydroxyzine HCl 50 mg 10/31/21 14:38 Hydroxyzine Hcl 25 Mg Tablet PO Q4H PRN Itching Cefazolin Sodium 2 gm in 50 mls @ 100 mls/hr 10/31/21 16:00 11/01/21 00:45 Ancef 2 Gm/D5w 50 Ml IVPB 11/01/21 08:29 Infused Q8H ROCÍO Infusion Ketorolac Tromethamine 15 mg 10/31/21 18:00 11/01/21 06:15 Ketorolac 15 Mg/Ml Vial (*Bkc) IV PUSH 11/01/21 18:01 15 mg Q6HR ROCÍO Administration Miscellaneous Information 1 each 10/31/21 00:01 Tramadol Ordered Prn Pain . She Has 3 Pain Meds Prn Already That Cover Pain 1-3,4-6 And 7 XX 11/30/21 00:00 [facility] Morphine Sulfate 3 mg 10/31/21 14:38 10/31/21 18:24 Morphine Sulfate (*Crx) 4 Mg/Ml
[2021-11-01 08:12] VITALS: PULSE 99
[2021-11-01] MEDS: SENNA/DOCUSATE SODIUM TABLET 2 TAB PO (08:12)
[2021-11-01] MEDS: ASPIRIN 325 MG ENTERIC TABLET PO (08:12)
[2021-11-01] MEDS: PANTOPRAZOLE 40 MG TABLET PO (08:12)
[2021-11-01] MEDS: NEBIVOLOL HCL 5 MG TABLET 20 MG PO (08:12)
[2021-11-01] MEDS: DULoxetine HCL 30 MG CAPSULE.DR BY MOUTH (08:12)
[2021-11-01] MEDS: polyethylene glycoL 3350 17 GM POWD.PACK PO (08:13)
--- NOTE | 2021-11-01 08:35 | WPDANESPN ---
Anes - Prog Note Post-Op Date/Time: 11/01/21 08:35 Cardiovascular status: normal Respiratory status: normal Airway patency: baseline Mental status: baseline Post-Op hydration status: normal Vital Signs: Last Vital Signs Temp 36.2 C L 11/01/21 04:23 Pulse 99 11/01/21 08:12 Resp 20 11/01/21 04:23 BP 128/68 11/01/21 04:23 Pulse Ox 99 11/01/21 04:23 O2 Del Method Room Air 11/01/21 08:00 O2 Flow Rate 2 10/31/21 14:30 Pain Score (VAS): 3 I/O: Intake & Output 10/31/21 11/01/21 11/01/21 23:59 07:59 15:59 Intake Total 840 2100 Balance 840 2100 Laboratory Tests 11/01/21 05:43 11/01/21 05:43 10/31/21 11/01/21 11/01/21 08:19 05:43 05:43 WBC 17.3 H RBC 3.04 L Hgb 9.0 L D Hct 28.4 L MCV 93.4 MCH 29.6 MCHC 31.7 L RDW 13.6 Plt Count 262 MPV 9.3 Immature Gran % (Auto) 0.7 H Neut % (Auto) 82.3 H Lymph % (Auto) 9.1 L [place] % (Auto) 7.7 Eos % (Auto) 0.0 Baso % (Auto) 0.2 Lymph # (Auto) 1.57 [place] # (Auto) 1.3 H Eos # (Auto) 0.0 Baso # (Auto) 0.0 Abs Immat Gran (auto) 0.13 H Absolute Neuts (auto) 14.3 H Absolute Nucleated RBC 0.0 Nucleated RBC % 0.0 Sodium 134 L Potassium 4.3 Chloride 98 Carbon Dioxide 29 Anion Gap 7 L BUN 10 Creatinine 0.60 L Estim Creat Clear Calc 134 Estimated GFR > 60 Glucose 136 H Calcium 8.3 L Blood Type A Positive Antibody Screen Negative Patient Feedback: Patient satisfied with anesthetic care.
[2021-11-01] MEDS: FLUTICASONE PROP 220 MCG (*SP) 12 GM INHALER 2 PUFF INHALATION (08:38)
[2021-11-01 08:54] VITALS: BP 137/85; PULSE 111; RESP 16; TEMP 35.6; O2SAT 99
[2021-11-01 14:38] VITALS: BP 135/67; PULSE 99; RESP 16; TEMP 36.4; O2SAT 98
--- NOTE | 2021-11-01 14:58 | PM.DS ---
DS: Admitting Diagnosis Discharge Date 11/01/21 Admitting Diagnosis LEFT HIP DJD DS: Discharge Diagnosis Discharge Diagnosis (1) Left hip pain: Code(s): M25.552 - Pain in left hip Status: Acute (2) Osteoarthritis of left hip: Qualifiers: Osteoarthritis type: primary Qualified Code(s): M16.12 - Unilateral primary osteoarthritis, left hip Code(s): M16.12 - Unilateral primary osteoarthritis, left hip Status: Acute DS: Summary Hospital Course Reason for hospitalization: L DANIEL Hospital Course: PATIENT WAS ADMITTED S/P LEFT TOTAL HIP ARTHROPLASTY FOR POSTOPERATIVE MEDICAL MANAGEMENT, PAIN CONTROL AND MOBILIZATION WITH PHYSICAL AND OCCUPATIONAL THERAPY. THE PATIENT PROGRESSED WELL WITH PT/OT. LABS AND VITALS REMAINED STABLE AND PAIN WELL CONTROLLED. THE PATIENT HAS BEEN CLEARED TO BE DISCHARGED HOME. FOLLOW UP APPOINTMENT SCHEDULED. DISCHARGE INSTRUCTIONS DISCUSSED AT LENGTH WITH THE PATIENT. MEDICATIONS REVIEWED. Status at Discharge Functional status at discharge: uses cane/walker Overall status at discharge: patient is progressing back to baseline Time Spent with Patient Time attestation: Total time spent providing and/or coordinating discharge services: DS: Data Data Completed and Pending Labs on day of discharge: Labs from last 24 hours 11/01/21 11/01/21 05:43 05:43 WBC 17.3 H RBC 3.04 L Hgb 9.0 L D Hct 28.4 L MCV 93.4 MCH 29.6 MCHC 31.7 L RDW 13.6 Plt Count 262 MPV 9.3 Immature Gran % (Auto) 0.7 H Neut % (Auto) 82.3 H Lymph % (Auto) 9.1 L [place] % (Auto) 7.7 Eos % (Auto) 0.0 Baso % (Auto) 0.2 Lymph # (Auto) 1.57 [place] # (Auto) 1.3 H Eos # (Auto) 0.0 Baso # (Auto) 0.0 Abs Immat Gran (auto) 0.13 H Absolute Neuts (auto) 14.3 H Absolute Nucleated RBC 0.0 Nucleated RBC % 0.0 Sodium 134 L Potassium 4.3 Chloride 98 Carbon Dioxide 29 Anion Gap 7 L BUN 10 Creatinine 0.60 L Estim Creat Clear Calc 134 Estimated GFR > 60 Glucose 136 H Calcium 8.3 L Procedures/Treatments: LEFT DANIEL Discharge Plan Discharge Patient Disposition: Home Health Service Discharge Instructions: per care coordination, [facility] is arranged for RN, PT/OT evaluations and treatment. [facility] will contact you for first visit. [facility] contact number is [phone]. JOO AMEZQUITA M.D. [facility] [address] [place] [address] POST OPERATIVE DISCHARGE INSTRUCTIONS FOLLOWING TOTAL HIP REPLACEMENT SURGERY ? Your dressing will be changed prior to your discharge. You will be sent home with one additional dressing to be changed on post op day 7 by the home health RN. You may remove the dressing on post op day 14. Your incision was closed with dermabond, allow the dermabond to fall off naturally once your dressing is removed. Do not pull at the dermabond or disrupt incision healing. ? You may shower with your dressing but do not submerge in a bath tub. ? Do not drive or operate machinery until you are released by Dr. Amezquita. ? Do not walk without a walker for any reason until you are released by Dr. Amezquita. ? Continue to apply ice to the hip intermittently for additional pain relief. Protect your skin with a towel or pillow case. ? Unless otherwise instructed by Dr. Amezquita you should be toe touch weight bearing just as you have during your physical therapy sessions. ? Continue to follow strict total hip replacement precautions. ? Your first post op appointment was sent to you via mail preoperatively. If you have any questions or are unable to make your appointment, please contact our office for scheduling questions. ? Your medications have been sent to your pharmacy. You have been sent home with pain medication. We have also sent you with a stool softener as narcotics can cause constipation. Please keep t
== END 2021-11-01 16:07 | disposition home health service (06) ==
LOC: ANHSURGERY 06:02 → ANH2MED 14:43
PROVIDERS: PCP Family Medicine; Visit Provider Orthopaedic Surgery
PROC: (CPT 27130; principal; 2021-10-31 07:30)
DX: M16.12 Unilateral primary osteoarthritis, left hip (principal); M25.552 Pain in left hip; I10 Essential (primary) hypertension; E66.01 Morbid (severe) obesity due to excess calories; Z68.39 Body mass index [BMI] 39.0-39.9, adult; G47.33 Obstructive sleep apnea (adult) (pediatric); K20.0 Eosinophilic esophagitis
CPT/HCPCS: 27130; 36415; 73501; 80048; 85025; 86850; 86900; 86901; 94640; 97110; 97116; 97161; 97165; 97535; A9270; C1713; C1776; J0171; J0330; J0690; J1100; J1170; J1885; J2250; J2270; J2405; J2704; J2710; J2795; J3010; J7120

== ENCOUNTER → 2022-09-19 08:46 | Outpatient (CLI) | payer OTHER, SELFPAY ==
--- NOTE | ~2022-09-19 | CT_ITS ---
EXAMINATION: CT hip LT wo con DATE: 09/19/2022 09:04 INDICATION: Implant loosening at the left hip TECHNIQUE: High resolution computed tomography (CT) of the left hip was performed without intravenous contrast. Additional sagittal and coronal reconstructions were performed. Automated exposure control and iterative reconstruction technique were employed. The dose-length pro duct was 577.81 mGy-cm. COMPARISON: CT dated 08/22/2021 and multiple radiographs dated between 09/28/2021 and 09/14/2022 FINDINGS: Noncemented left total hip arthroplasty which appears in unchanged alignment when compared with the r adiographs dating back to displacement on 10/31/2021. There is no periprosthetic lucency to suggest lo osening or infection. One of the 3 acetabular fixation screws extends across the cortex at the harmony medial rim of the acetabulum and along the posterior margin of the left iliopsoas muscle. Solid incor poration and peripheral cortication of the bone graft material placed over the region of prior chroni c acetabular protrusio. The femoral head remains centered within the acetabular component with no abhinav dent asymmetric polyethylene liner wear. No evident joint effusion or other abnormal fluid collection s. No fracture. Mild osteoarthritis at the left sacroiliac joint. No pathologically enlarged left pel estella or inguinal lymphadenopathy. IMPRESSION: 1. No evident loosening, instrumentation failure or acute osseous abnormality at a left total hip art hroplasty. Reviewed, dictated and finalized at location A. IMPRESSION: 1. No evident loosening, instrumentation failure or acute osseous abnormality a t a left total hip arthroplasty.
== END ==
PROVIDERS: PCP Family Medicine; Visit Provider Orthopaedic Surgery
DX: T84.84XA Pain due to internal orthopedic prosthetic devices, implants and grafts, initial encounter (principal); Z96.642 Presence of left artificial hip joint
CPT/HCPCS: 73700

== ENCOUNTER 2022-10-11 07:24 | Outpatient (CLI) | payer OTHER, SELFPAY ==
[2022-10-11 07:47] LABS: Hematocrit 36.2 % (37.0-47.0); Hemoglobin 11.3 g/dL (12.0-15.0); Mean Corpuscular HGB Conc 31.2 g/dl (32-36); Mean Corpuscular Hemoglobin 27.3 pg (26-34); Mean Corpuscular Volume 87.4 fl (80-100); Platelet Count Result 359 k/mm3 (150-375); Red Blood Count 4.14 M/mm3 (4.2-5.4); Red Cell Distribution Width 14.6 % (11.5-14.5); White Blood Count 8.1 K/mm3 (4.5-10.0)
[2022-10-11 07:53] LABS: Alanine Aminotransferase 27 U/L (6-35); Albumin Level 4.2 g/dL (3.5-5.1); Alkaline Phosphatase 126 U/L (38-126); Anion Gap 8 mmol/L (8-16); Aspartate Amino Transferase 23 U/L (14-36); Bilirubin,Total 0.4 mg/dL (0.2-1.3); Blood Urea Nitrogen 11 mg/dL (7-17); Calcium 8.8 mg/dL (8.4-10.2); Carbon Dioxide 27 mmol/L (22-30); Chloride 102 mmol/L (98-107); Cholesterol 174 mg/dL (0-200); Creatine Kinase 73 U/L (30-135); Estimated Glomerular Filt Rate > 60; Glucose 127 mg/dL (65-110); HDL Direct 28 mg/dL; Sodium 137 mmol/L (137-145); Triglycerides 193 mg/dL (<150)
[2022-10-11 08:05] LABS: Iron 55 ug/dL (37-170); LDL Cholesterol Direct 95 mg/dL
[2022-10-11 09:54] LABS: Erythrocyte Sedimentation Rate 41 mm/hr (0-20)
== END 2022-10-11 07:25 | disposition home or self-care (01) ==
LOC: ANHLAB 07:25
PROVIDERS: PCP Family Medicine; Visit Provider Nurse Practitioner Family
DX: I10 Essential (primary) hypertension (principal); E61.1 Iron deficiency; D72.829 Elevated white blood cell count, unspecified; Z13.29 Encounter for screening for other suspected endocrine disorder; M25.50 Pain in unspecified joint; R21 Rash and other nonspecific skin eruption
CPT/HCPCS: 36415; 80053; 80061; 82550; 83540; 84443; 85027; 85652; 86038

== ENCOUNTER 2022-10-25 08:44 | Outpatient (CLI) | payer OTHER, SELFPAY ==
[2022-10-25 11:25] LABS: Hemoglobin A1C 6.4 % (<5.7)
== END 2022-10-25 08:45 | disposition home or self-care (01) ==
LOC: ANHLAB 08:46
PROVIDERS: PCP Family Medicine; Visit Provider Nurse Practitioner Family
DX: R70.0 Elevated erythrocyte sedimentation rate (principal); R73.09 Other abnormal glucose; D64.9 Anemia, unspecified
CPT/HCPCS: 36415; 82607; 82746; 83036; 86140

== ENCOUNTER 2023-02-11 09:54 | Emergency (ER) | payer OTHER, SELFPAY ==
--- NOTE | 2023-02-11 09:59 | ED.URI ---
HPI - URI/Sore Throat General Chief Complaint: Upper Respiratory Infection Stated Complaint: Chills;Nausea;Headache Time Seen by Provider: 02/11/23 09:55 Source: patient Mode of arrival: ambulatory Limitations: no limitations History of Present Illness HPI Narrative: Patient is a 42-year-old female who presents with headache, nausea, chills, body aches and fatigue since this morning. Patient states over the last 2 weeks she has had congestion but resolved the last few days. Denies any sore throat, ear pain, cough, fever. Has not taken anything for symptoms this morning. Related Data Allergies Allergy/AdvReac Type Severity Reaction Status Date / Time metoclopramide AdvReac Intermediate Difficulty Verified 10/19/22 10:37 Breathing Review of Systems Review of Systems: All systems reviewed & are unremarkable except as noted in HPI and below Constitutional: Constitutional: Reports body ache(s), Denies chills, Reports fatigue, Denies fever(s), Reports headache(s), Denies malaise and Denies weakness Eyes: Eyes: Denies blurry vision, Denies itchy eyes and Denies loss of vision ENT: Denies otalgia, Denies headache(s), Denies nasal congestion, Denies sinus pain and Denies sore throat Cardiovascular: Cardiovascular: Denies chest pain, Denies irregular heart rhythm and Denies dyspnea Respiratory: Respiratory: Denies cough and Denies dyspnea Gastrointestinal: Gastrointestinal: Denies abdominal pain, Denies diarrhea, Reports nausea and Denies vomiting Musculoskeletal: Musculoskeletal: Denies back pain, Denies myalgias and Denies arthralgias Integumentary/Breasts: Skin/Breast: Denies pruritus and Denies rash Neurologic: Reports headache(s), Denies loss of vision and Denies weakness Psychiatric: Psychiatric: Reports no additional psychiatric complaints Endocrine: Endocrine: Reports fatigue Allergic/Immunologic: Allergic/Immunologic: Denies itchy eyes PMFSH Past Medical History Medical History Anxiety and depression BMI 40.0-44.9, adult BMI greater than 40 Depression Essential (primary) hypertension Left hip pain Morbid (severe) obesity due to excess calories ADILSON (obstructive sleep apnea) Right low back pain Surgical History Surgical History H/O: hysterectomy History of History of cataract extraction History of cholecystectomy History of surgical procedure on eye proper using laser History of total left hip replacement 10/31/21 Family History Family History Father Hypertension Family history of heart disease in male family member before age 55 Peripheral artery disease Grandparent Hypertension Family history of malignant neoplasm of breast Mother Hypertension Sibling Peripheral artery disease Other Asthma Diabetes mellitus Heart disease High cholesterol Social History Social History Smoking status: Never smoker Second hand tobacco smoke exposure: No Additional smoking assessment comments: Denies tobacco use. 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
[2023-02-11 10:03] VITALS: BP 144/95; PULSE 93; RESP 16; TEMP 36.4; O2SAT 99
== END 2023-02-11 10:37 | disposition home or self-care (01) ==
PROVIDERS: Emergency Provider Nurse Practitioner Family; PCP Family Medicine
DX: B34.9 Viral infection, unspecified (principal); Z20.822 Contact with and (suspected) exposure to COVID-19; I10 Essential (primary) hypertension; E66.01 Morbid (severe) obesity due to excess calories; Z68.41 Body mass index [BMI] 40.0-44.9, adult; Z96.642 Presence of left artificial hip joint
CPT/HCPCS: 87426; 87804; 99213; C9803; G0463

== ENCOUNTER 2023-04-18 15:02 | Outpatient (CLI) | payer OTHER, SELFPAY ==
[2023-04-23 22:16] LABS: Anti Cyclic Citrullinated Pept <16 Units (<20)
== END 2023-04-18 15:03 | disposition home or self-care (01) ==
LOC: ANHGOSHLAB 15:03
PROVIDERS: PCP Family Medicine; Visit Provider Internal Medicine
DX: E55.9 Vitamin D deficiency, unspecified (principal); M19.90 Unspecified osteoarthritis, unspecified site; Z96.642 Presence of left artificial hip joint
CPT/HCPCS: 36415; 86200

== ENCOUNTER → 2023-04-18 15:09 | Outpatient (CLI) | payer OTHER, SELFPAY ==
--- NOTE | ~2023-04-18 | XR_ITS ---
EXAMINATION: XR foot RT standing 2V DATE: 04/18/2023 16:12 INDICATION: Unspecified osteoarthritis, unspecified site. TECHNIQUE: 2 views of right foot standing were obtained. COMPARISON: Right foot radiographs 09/23/2020 FINDINGS: Pes planus is noted. No fracture. There is mild osteoarthritis of first and second metatars ophalangeal joints and some of the interphalangeal joints and midfoot joints. There are enthesophytes at the posterior and plantar aspects of calcaneal tuberosity. IMPRESSION: 1. Polyarticular osteoarthritis. 2. Pes planus. Reviewed, dictated and finalized at location E. ONAL EHS MANAGER
--- NOTE | ~2023-04-18 | XR_ITS ---
EXAMINATION: XR hand BI arthritis min 3V DATE: 04/18/2023 16:12 INDICATION: Unspecified osteoarthritis, unspecified site. TECHNIQUE: 4 views of right knee and 4 views of left hand on a total of 7 radiographs were obtained. COMPARISON: Bilateral hand radiographs 06/13/2021 FINDINGS: RIGHT HAND: Bone alignment is normal. No fracture. There is mild osteoarthritis of second-fourth meta carpophalangeal joints and many of the interphalangeal joints. There is severe osteoarthritis of seco nd-fifth distal interphalangeal joints. LEFT HAND: Bone alignment is normal. No fracture. There is mild osteoarthritis of triscaphe joint, fi rst carpometacarpal joint, second-fourth metacarpophalangeal joints, and some of the interphalangeal joints. There is severe osteoarthritis of second-fifth distal interphalangeal joints and moderate ost eoarthritis of second and third proximal interphalangeal joints. IMPRESSION: 1. Polyarticular osteoarthritis, stable from 06/13/2021. Reviewed, dictated and finalized at location E. CAL INSTRUMENT ASSEMBLER
--- NOTE | ~2023-04-18 | XR_ITS ---
EXAMINATION: XR foot LT standing 2V DATE: 04/18/2023 16:12 INDICATION: Unspecified osteoarthritis, unspecified site. TECHNIQUE: 2 views of left foot standing were obtained. COMPARISON: None. FINDINGS: Bone alignment is normal. No fracture. There is moderate osteoarthritis of talonavicular tiff int and mild osteoarthritis of some of the midfoot joints and interphalangeal joints. There are enthe sophytes at the posterior and plantar aspects of calcaneal tuberosity. IMPRESSION: 1. Polyarticular osteoarthritis. Reviewed, dictated and finalized at location E. OSAL MANAGER
== END ==
PROVIDERS: PCP Internal Medicine; Visit Provider Internal Medicine
DX: M19.042 Primary osteoarthritis, left hand (principal); M19.041 Primary osteoarthritis, right hand; M19.072 Primary osteoarthritis, left ankle and foot; M19.071 Primary osteoarthritis, right ankle and foot; M21.41 Flat foot [pes planus] (acquired), right foot; E55.9 Vitamin D deficiency, unspecified; Z96.642 Presence of left artificial hip joint
CPT/HCPCS: 73130; 73620

== ENCOUNTER 2023-06-25 09:31 | Outpatient (CLI) | payer OTHER, SELFPAY ==
--- NOTE | 2023-06-25 11:00 | NEURO_ITS ---
Impression: # Complains of numbness of hands. Non-diabetic. # Subtle evolving right Carpal Tunnel Syndrome. # No ulnar neuropathy. # Normal needle/EMG exam. # Clinical correlation recommended. Nerve Conduction Studies Anti Sensory Summary Table Stim Site NR Peak (ms) P-T Amp (?V) Site1 Site2 Delta-P (ms) Dist (cm) Messi (m/s) Left Median Anti Sensory (2-3nd Digit) Wrist 3.1 65.3 Wrist 2-3nd Digit 3.1 14.0 45 Wrist 3.2 49.6 Wrist 2-3nd Digit 3.1 14.0 45 Right Median Anti Sensory (2-3nd Digit) Wrist 3.5 30.8 Wrist 2-3nd Digit 3.5 14.0 40 Wrist 3.7 44.4 Wrist 2-3nd Digit 3.5 14.0 40 Left Radial Anti Sensory (Base 1st Digit) Wrist 1.7 56.1 Wrist Base 1st Digit 1.7 0.0 Right Radial Anti Sensory (Base 1st Digit) Wrist 2.0 26.3 Wrist Base 1st Digit 2.0 0.0 Left Ulnar Anti Sensory (5th Digit) Wrist 2.3 66.3 Wrist 5th Digit 2.3 14.0 61 Right Ulnar Anti Sensory (5th Digit) Wrist 2.4 44.4 Wrist 5th Digit 2.4 14.0 58 Motor Summary Table Stim Site NR Onset (ms) O-P Amp (mV) Site1 Site2 Delta-0 (ms) Dist (cm) Messi (m/s) Left Median Motor (Abd Poll Brev) Wrist 3.1 6.6 Elbow Wrist 4.9 29.0 59 Elbow 8.0 4.1 Right Median Motor (Abd Poll Brev) Wrist 3.4 11.7 Elbow Wrist 4.9 30.0 61 Elbow 8.3 7.8 Left Ulnar Motor (Abd Dig Minimi) Wrist 2.3 6.6 A Elbow Wrist 5.2 31.0 60 A Elbow 7.5 5.5 Right Ulnar Motor (Abd Dig Minimi) Wrist 2.3 7.9 A Elbow Wrist 5.5 32.0 58 A Elbow 7.8 5.0 F Wave Studies NR F-Lat (ms) L-R F-Lat (ms) Left Median (Mrkrs) (Abd Poll Brev) 27.19 0.50 Right Median (Mrkrs) (Abd Poll Brev) 26.69 0.50 Left Ulnar (Mrkrs) (Abd Dig Min) 27.89 0.58 Right Ulnar (Mrkrs) (Abd Dig Min) 27.31 0.58 EMG Side Muscle Nerve Root Ins Act Fibs Amp Dur Recrt Comment Right 1stDorInt Ulnar C8-T1 Nml Nml Nml Nml Nml Right Ext Indicis Radial (Post Int) C7-8 Nml Nml Nml Nml Nml Right Ext Digitorum Radial (Post Int) C7-8 Nml Nml Nml Nml Nml Right BrachioRad Radial C5-6 Nml Nml Nml Nml Nml Right PronatorTeres Median C6-7 Nml Nml Nml Nml Nml Right Abd Poll Brev Median C8-T1 Nml Nml Nml Nml Nml Right ABD Dig Min Ulnar C8-T1 Nml Nml Nml Nml Nml Left 1stDorInt Ulnar C8-T1 Nml Nml Nml Nml Nml Left Ext Indicis Radial (Post Int) C7-8 Nml Nml Nml Nml Nml Left Ext Digitorum Radial (Post Int) C7-8 Nml Nml Nml Nml Nml Left BrachioRad Radial C5-6 Nml Nml Nml Nml Nml Left PronatorTeres Median C6-7 Nml Nml Nml Nml Nml Left Abd Poll Brev Median C8-T1 Nml Nml Nml Nml Nml Left ABD Dig Min Ulnar C8-T1 Nml Nml Nml Nml Nml MTDD
== END 2023-06-25 09:32 | disposition home or self-care (01) ==
PROVIDERS: PCP Family Medicine; Visit Provider Plastic Surgery
DX: G56.03 Carpal tunnel syndrome, bilateral upper limbs (principal)
CPT/HCPCS: 95886; 95911

== ENCOUNTER 2023-07-10 17:37 | Emergency (ER) | payer OTHER, SELFPAY ==
[2023-07-10 17:52] VITALS: BP 133/85; PULSE 66; RESP 16; TEMP 36.8; O2SAT 99
--- NOTE | 2023-07-10 18:10 | PC.NURSE ---
Addendum entered by Rony Fisher RN 07/10/23 18:27: MISTAKEN ENTRY Original Note: +PMS POST JAMAR APPLICATION
--- NOTE | 2023-07-10 18:22 | ED.URI ---
HPI - URI/Sore Throat General Chief Complaint: Upper Respiratory Infection Stated Complaint: SORE THROAT Time Seen by Provider: 07/10/23 18:10 Source: patient and RN notes reviewed Mode of arrival: ambulatory Limitations: no limitations History of Present Illness HPI Narrative: Patient presents today complaining of sore and swollen throat, headache, chills since yesterday. Currently rates her pain 4/10 and has been taking ibuprofen and Tylenol with some relief. Had a child with strep last week at home Related Data Allergies Allergy/AdvReac Type Severity Reaction Status Date / Time metoclopramide AdvReac Intermediate Difficulty Verified 07/10/23 18:06 Breathing Review of Systems Review of Systems: CONSTITUTIONAL: Denies body aches, fever, or sweats.+ chills EYES: Denies visual changes, redness, or discharge. ENT: Denies rhinorrhea, congestion, or otalgia.+ sore throat CARDIOVASCULAR: Denies chest pain, palpitations, or edema. RESPIRATORY: Denies cough or dyspnea. GASTROINTESTINAL: Denies abdominal pain, nausea, vomiting, or diarrhea. GENITOURINARY: Denies dysuria or hematuria. SKIN: Denies rash, itching, or wounds. MUSCULOSKELETAL: Denies back pain, joint pain, or myalgia. NEUROLOGIC: Denies numbness, tingling, or weakness.+ panic PSYCH: Denies depression or anxiety. [facility] Past Medical History Medical History Anxiety and depression BMI 40.0-44.9, adult BMI greater than 40 Depression Essential (primary) hypertension Inflammatory arthritis Left hip pain Morbid (severe) obesity due to excess calories ADILSON (obstructive sleep apnea) Right low back pain Surgical History Surgical History H/O: hysterectomy History of History of cataract extraction History of cholecystectomy History of surgical procedure on eye proper using laser History of total left hip replacement 10/31/21 Family History Family History Father Hypertension Family history of heart disease in male family member before age 55 Peripheral artery disease Grandparent Hypertension Family history of malignant neoplasm of breast Mother Hypertension Sibling Peripheral artery disease Other Asthma Diabetes mellitus Heart disease High cholesterol Social History Social History Smoking status: Never smoker Second hand tobacco smoke exposure: No Additional smoking assessment comments: Denies tobacco use. 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 Please see nursing chart for further information. There is no relevant family history pertinent to the presenting complaint Exam Narrative: GENERAL: Well-appearing, well-nourished, and in no acute distress. HEAD: Normocephalic, atraumatic. EYES: EOMI. No redness or drainage. Conjunctivae normal. ENT: Mucous membranes pink and moist. Nares clear. N
== END 2023-07-10 18:30 | disposition home or self-care (01) ==
PROVIDERS: Emergency Provider Nurse Practitioner; PCP Family Medicine
DX: J02.0 Streptococcal pharyngitis (principal); I10 Essential (primary) hypertension; M13.80 Other specified arthritis, unspecified site; E66.01 Morbid (severe) obesity due to excess calories; Z68.41 Body mass index [BMI] 40.0-44.9, adult; Z96.642 Presence of left artificial hip joint
CPT/HCPCS: 87880; 99213; G0463

== ENCOUNTER 2023-07-26 08:49 | Emergency (ER) | payer OTHER, SELFPAY ==
--- NOTE | ~2023-07-26 | CT_ITS ---
EXAMINATION: CT abdomen pelvis w con DATE: 07/26/2023 10:07 INDICATION: Nausea, vomiting and diarrhea. Right upper quadrant, epigastric and periumbilical abdomin al pain. TECHNIQUE: Computed tomography (CT) of the abdomen and pelvis was performed with 100 mL Omnipaque-350 intravenous contrast. Automated exposure control and iterative reconstruction technique were employe d. The dose-length product was 1515.19 mGy-cm. COMPARISON: 02/01/2020 FINDINGS: Lung bases are clear. Heart size is normal. No pericardial or pleural effusion. Small sliding-type hi atal hernia. Focal hepatic steatosis at the ligamentum teres. Cholecystectomy clips at the gallbladde r fossa. Spleen, pancreas, right kidney and bilateral adrenal glands are normal. 2-3 mm nonobstructin g stone in upper pole calyx of the left kidney. No ureteral stones or hydronephrosis. Bladder is norm al. Tiny fat-containing umbilical hernia. Bowels including the appendix are normal. No free intraperi toneal gas or fluid. No pathologically enlarged abdominal or pelvic lymphadenopathy. Partially visual ized left total hip arthroplasty. Coarsened trabecular pattern throughout the pelvis likely related t o known history of vitamin D deficiency. IMPRESSION: 1. No acute intra-abdominal/pelvic process. 2. 2 to 3 mm nonobstructing left renal stone. 3. Tiny fat-containing umbilical hernia. Reviewed, dictated and finalized at location A.
[2023-07-26 09:01] VITALS: BP 159/102; PULSE 89; RESP 16; TEMP 36.6; O2SAT 100; O2SAT 99
--- NOTE | 2023-07-26 09:20 | ED.NAVMDI ---
HPI - Nausea/Vomiting/Diarrhea General Chief complaint: Nausea/Vomiting/Diarrhea <Regina Jack PA-C - Last Filed: 07/26/23 17:40> Stated complaint: ABD pain, dizziness, vomiting <Regina Jack PA-C - Last Filed: 07/26/23 17:40> Time Seen by Provider: 07/26/23 08:57 <Regina Jack PA-C - Last Filed: 07/26/23 17:40> History of Present Illness HPI Narrative: 42-year-old female with history of hypertension, depression and anxiety presents to emergency department for nausea, vomiting, diarrhea and abdominal pain x2 days. Patient states she has had multiple episodes of vomiting and watery diarrhea since the onset of symptoms. She feels like the diarrhea has somewhat improved but still persists. She is reporting abdominal pain across the mid section of her abdomen that is worse with movement, with vomiting and when having a BM. She notes that she was recently on amoxicillin in the beginning of July for strep pharyngitis. States she had a fever of 100.2 yesterday but that has since resolved spontaneously. She denies recent surgeries or hospitalizations, travel, cough or congestion dysuria or hematuria. States she feels dehydrated and dizzy and has been unable to keep down food or fluids. No chest pain or shortness of breath. Prior abdominal surgeries consisted of cholecystectomy, section and hysterectomy. <Regina Jack PA-C - Last Filed: 07/26/23 17:40> Related Data Allergies/Adverse reactions: Allergies Allergy/AdvReac Type Severity Reaction Status Date / Time metoclopramide AdvReac Intermediate Difficulty Verified 07/10/23 18:06 Breathing <Regina Jack PA-C - Last Filed: 07/26/23 17:40> Review of Systems Review of Systems: CONSTITUTIONAL: See HPI EYES: Denies visual changes, redness, or discharge. ENT: Denies rhinorrhea, congestion, sore throat, or otalgia. CARDIOVASCULAR: Denies chest pain, palpitations, or edema. RESPIRATORY: Denies cough or dyspnea. GASTROINTESTINAL: See HPI GENITOURINARY: Denies dysuria or hematuria. SKIN: Denies rash or itching. MUSCULOSKELETAL: Denies back pain, joint pain, or myalgia. NEUROLOGIC: Denies headache, numbness, or weakness. PSYCHIATRIC: Denies anxiety or depression. <Regina Jack PA-C - Last Filed: 07/26/23 17:40> PENDING SALE TO [facility] Past Medical History Medical History: Medical History Anxiety and depression BMI 40.0-44.9, adult BMI greater than 40 Depression Essential (primary) hypertension Inflammatory arthritis Left hip pain Morbid (severe) obesity due to excess calories ADILSON (obstructive sleep apnea) Right low back pain <Regina Jack PA-C - Last Filed: 07/26/23 17:40> Surgical History Surgical History: Surgical History H/O: hysterectomy History of History of cataract extraction History of cholecystectomy History of surgical procedure on eye proper using laser History of total left hip replacement 10/31/21 <Regina Jack PA-C - Last Filed: 07/26/23 17:40> Family History Family History: Family History Father Hypertension Family history of heart disease in male family member before age 55 Peripheral artery disease Grandparent Hypertension Family history of malignant neoplasm of breast Mother Hypertension Sibling Peripheral artery disease Other Asthma Diabetes mellitus Heart disease High cholesterol <Regina Jack PA-C - Last Filed: 07/26/23 17:40> Social History Social History: Social History Smoking status: Never smoker Second hand tobacco smoke exposure: No Additional smoking assessment comments: Denies tobacco use. Alcohol intake: current Drinks per week: 3 Substance use: never
[2023-07-26 09:35] LABS: Basophils Percent Auto 0.6 % (0.2-1.2); Eosinophils Absolute Auto 0.1 K/mm3 (0-0.3); Eosinophils Percent Auto 1.1 % (0-4.4); Hematocrit 40.7 % (37.0-47.0); Hemoglobin 12.6 g/dL (12.0-15.0); Immature Granulocyte Absolute 0.02 K/mm3 (0.00-0.031); Immature Granulocyte Percent A 0.4 % (0-0.5); Lymphocytes Absolute Auto 1.42 K/mm3 (0.9-3.2); Lymphocytes Percent Auto 26.1 % (18.3-44.2); Mean Corpuscular Hemoglobin 27.8 pg (26-34); Mean Corpuscular Volume 89.6 fl (80-100); Mean Platelet Volume 9.4 fl (7.4-10.4); Monocytes Absolute Auto 0.4 K/mm3 (0.1-0.6); Monocytes Percent Auto 7.9 % (2.6-8.5); Neutrophils Absolute Auto 3.5 K/mm3 (1.3-6.7); Neutrophils Percent Auto 63.9 % (45.5-73.1); Platelet Count Result 338 k/mm3 (150-375); Red Blood Count 4.54 M/mm3 (4.2-5.4); Red Cell Distribution Width 15.5 % (11.5-14.5); White Blood Count 5.5 K/mm3 (4.5-10.0)
[2023-07-26] MEDS: FAMOTIDINE 20 MG/2 ML VIAL IV PUSH (09:45)
[2023-07-26] MEDS: LACTATED RINGERS 1,000 ML 999 ML IV CONT ×2 (09:45→11:28)
[2023-07-26] MEDS: ONDANSETRON INJ 4 MG/2 ML VIAL IV PUSH (09:45)
[2023-07-26 09:47] LABS: Alanine Aminotransferase 49 U/L (6-35); Albumin Level 4.6 g/dL (3.5-5.1); Alkaline Phosphatase 118 U/L (38-126); Anion Gap 10 mmol/L (4-12); Aspartate Amino Transferase 34 U/L (14-36); Bilirubin,Total 0.6 mg/dL (0.2-1.3); Blood Urea Nitrogen 11 mg/dL (7-17); Carbon Dioxide 26 mmol/L (22-30); Chloride 99 mmol/L (98-107); Estimated CRCL calculation 131 ml/min; Estimated Glomerular Filt Rate > 60; Glucose 113 mg/dL (65-110); Lipase 79 U/L (23-300); Magnesium 2.2 mg/dL (1.6-2.3); Potassium 3.6 mmol/L (3.4-5.0); Sodium 135 mmol/L (137-145)
--- NOTE | 2023-07-26 09:50 | PC.NURSE ---
Regina QUEVEDO aware of pts HTN. Pt states she has been unable to take B/P meds due to vomiting.
[2023-07-26 09:51] VITALS: BP 167/107; PULSE 79; RESP 18; O2SAT 96
[2023-07-26 10:24] LABS: Influenza A QL RT-PCR Negative (Negative); Influenza B QL RT-PCR Negative (Negative); RSV RNA, RT-PCR Negative (Negative); SARS-CoV-2 RNA PCR Negative (Negative)
[2023-07-26 10:49] LABS: Appearance Urine Clear (Clear); Bilirubin Urine Negative (Negative); Blood Urine Negative (Negative); Color Urine Yellow (Yellow); Glucose Urine UA Negative (Negative); Ketones Urine Negative (Negative); Leukocyte Esterase Ur Negative LEU/UL (Negative); Nitrate Urine Negative (Negative); Protein Urine Negative (Negative); Urobilinogen Urine 0.2 mg/dL (<2.0); pH Urine 7.5 (5.0-9.0)
[2023-07-26 10:50] VITALS: BP 167/107; PULSE 90; RESP 18; TEMP 36.6; O2SAT 100
[2023-07-26 11:16] LABS: Specific Grav Ur 1.048 (1.001-1.035)
[2023-07-26 11:17] LABS: Add Urine Microscopic? NO
--- NOTE | 2023-07-26 12:35 | PC.NURSE ---
patient tolerated PO challenge well and is ready for discharge
[2023-07-26 12:36] VITALS: BP 148/89; PULSE 71; RESP 15; TEMP 37.1; O2SAT 100
== END 2023-07-26 12:37 | disposition home or self-care (01) ==
PROVIDERS: Emergency Provider Physician Assistant; PCP Family Medicine
DX: A08.4 Viral intestinal infection, unspecified (principal); Z20.822 Contact with and (suspected) exposure to COVID-19; I10 Essential (primary) hypertension; E66.01 Morbid (severe) obesity due to excess calories; Z68.39 Body mass index [BMI] 39.0-39.9, adult; G47.33 Obstructive sleep apnea (adult) (pediatric); M19.90 Unspecified osteoarthritis, unspecified site; Z90.710 Acquired absence of both cervix and uterus; Z90.49 Acquired absence of other specified parts of digestive tract
CPT/HCPCS: 36415; 74177; 80053; 81003; 83690; 83735; 85025; 87637; 96361; 96374; 96375; 99284; J2405; J7120; Q9967

== ENCOUNTER 2023-09-25 00:03 | Day surgery (SDC) | payer OTHER, SELFPAY ==
[2023-09-18 15:59] VITALS: BMI 40.3
--- NOTE | 2023-09-18 16:17 | SUR.PREOP ---
Report to the Outpatient Waiting Room, entrance under the green pavilion located off [facility], at time 1115 on date 09/25/23. Planned Procedure Time: _1315_. Time changes happen often and if your time is changed the preop area will call you the afternoon before. - You and your visitor will be asked to self-screen and do not enter if you have any COVID symptoms. - A mask is optional within the hospital at this time. Patients may have clear liquids (water, carbonated beverages, clear teas, apple juice) until 3 hours prior to surgery with a maximum of 20 ounces. - No food from midnight until time of surgery - Infants may have breast milk until 4 hours before surgery, formula 6 hours prior to surgery. - Children will be allowed to drink immediately following surgery. If applicable, please bring a bottle or sippy cup to assist with drinking. Juice, water, soda, and popsicles are readily available. For infants on formula, please bring formula the day of surgery. Pacifiers are allowed. Take the following medications with a SIP of water the morning of surgery: NEBIVOLOL, DULOXETINE DO NOT STOP ANY OF YOUR OTHER PRESCRIPTION MEDICATIONS PRIOR TO SURGERY ?EXCEPT THE FOLLOWING Medications to discontinue per physician N/A Date to take last dose Please no make-up, nail bahraini, hairspray, perfume, deodorant, or body powder the day of surgery. No jewelry (including any body piercings) or valuables the day of surgery, leave them at home. Please take a shower or bath the night before, or the morning of, surgery with an antibacterial soap. Wear comfortable, loose fitting clothing. Children are encouraged to wear pajamas. - Jewelry must be removed prior to entering the operating room. Rings and piercings that are not removed may be cut off. - The hospital will not accept responsibility for valuables. - Please leave all valuables, including medications, at home the day of surgery. If you are going home after surgery, a licensed corporate driver must drive you home. - NO public transportation without another adult if you receive anesthesia. - We recommend that an adult stay with you for 24 hours following discharge. - We also recommend that you do not drive, make important decision, drink alcoholic beverages, or take any drugs that were not prescribed by your health care provider for at least 24 hours after your discharge time. For Pediatric surgeries, we recommend two adults accompany the child home. Follow any additional instructions given to you from your surgeon. If you or anyone in your household have experienced Covid symptoms in the past week, please notify your surgeon or the nurse liaison at the phone number below for possible testing. Telephone instructions given to _PATIENT_and asked if any additional questions and then verbalized understanding. Patient advised to call surgeon office or pre surgery nurse liaison [phone] if any additional questions.
[2023-09-25] VITALS (7 sets, daily range): BP systolic 125–155; BP diastolic 72–90; PULSE 70–89; RESP 16–22; TEMP 36.3; O2SAT 94–99
--- NOTE | 2023-09-25 06:54 | PM.HPGS ---
History of Present Illness History of Present Illness Chief complaint: lesion right ulnar nerve,rt carpal tunnel syndr Narrative: Patient seen and examined in pre-operative holding area. No interval change in medical history or symptoms. Patient recalls previous discussion of benefits and alternatives to procedure. Continues to desire to proceed with right open carpal tunnel release revisiion and right cubital tunnel release. Reviewed procedure, post-op expectations and risks including but not limited to bleeding, infection, injury to tendon/nerve/vessel, decreased hand function, stiffness, RSD, no change or worsening of symptoms. I discussed the possible use of assistants and their participation in the case. Patient stated understanding and signed the consent form wishing to proceed Review of Systems Review of Systems: All systems reviewed & are unremarkable except as noted in HPI and below PMFSH Past Medical History Medical History Anxiety and depression BMI 40.0-44.9, adult BMI greater than 40 Depression Essential (primary) hypertension Inflammatory arthritis Left hip pain Morbid (severe) obesity due to excess calories ADILSON (obstructive sleep apnea) Right low back pain Surgical History Surgical History H/O: hysterectomy History of History of cataract extraction History of cholecystectomy History of surgical procedure on eye proper using laser History of total left hip replacement 10/31/21 Family History Family History Father Hypertension Family history of heart disease in male family member before age 55 Peripheral artery disease Grandparent Hypertension Family history of malignant neoplasm of breast Mother Hypertension Sibling Peripheral artery disease Other Asthma Diabetes mellitus Heart disease High cholesterol Social History Social History Smoking status: Never smoker Second hand tobacco smoke exposure: No Additional smoking assessment comments: Denies tobacco use. 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 Gender identity (if verbalized by the patient): Female Sexual Orientation (if Verbalized by the Patient): Straight or Heterosexual Spiritual care concerns: No Agree to blood products: Yes Meds Home Medications and Allergies Home Medications Medication Instructions Recorded Confirmed Type tizanidine 4 mg tablet 4 mg PO QHS PRN muscle spasticity 08/15/23 09/18/23 Rx #90 tabs duloxetine 60 mg capsule,delayed 60 mg PO DAILY 09/18/23 09/18/23 History release nebivolol 20 mg tablet 20 mg PO DAILY 09/18/23 09/18/23 History tramadol 50 mg tablet 50 mg PO Q6H PRN pain #12 tabs 09/25/23 Rx Allergies Allergy/AdvReac Type Severity Reaction Status Date / Time metoclopramide Allergy Severe Other Verified 09/18/23 15:58 Exam Narrative: unchanged Assessment and Plan Assessment and plan (1) Ulnar neuropathy at elbow: Qualifiers: Laterality: unspecified laterality Qualified Code(s): G56.20 - Lesion of ulnar nerve, unspecified upper limb Code(s): G56.20 - Lesion of ulnar nerve, unspecified upper limb Status: Acute Assessment and Plan: con
--- NOTE | 2023-09-25 06:54 | W.PM.PROC2 ---
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 The patient signed the consent form. PROCEDURE IN DETAIL:The patient taken back to OR on the stretcher in supine position. Time out performed with anesthesia, surgeon and staff agreeing on patient's name site and surgery to be performed SCDs were placed on the lower extremities and inflated. A tourniquet was placed on {right} upper extremity and antibiotics given IV After anesthesia administered sedation I injected {10}cc 1%lido with epi and 0.5% marcaine plain at the operative sites The?{right upper extremity}?was prepped and draped in sterile fashion the??{right upper extremity} was? exsanguinated with Esmarch bandage and tourniquet inflated to 250mmHg I proceeded with making an incision in the right palm through her previous healed incision carried proximally onto the forearm going obliquely acros wrist flexion crease creating a radially based flap. I spread with littler scissors proximally down to antebrachial fascia and then made an incision in the fascia. I identified the median nerve and proceeded with complete anterograde release of carpal tunnel and scar tissue. The median nerve was protected throughout the procedure. The median nerve had a signfiicant amount of syntoiviis closesly adherent to the epineurium and no vaso nervorum were identified. Given that this was a recurrent surgical case it took much more time to dissect this synovium and scar tissue off of the nerve and to perform epineurolysis. After this was completed and the nerve had a healthier, glistening appearance, I irrigated with normal saline and closed with 4-0 vicryl and the wrist and 4-0 chromic for skin. I next proceeded with making a longitudinal incision between two heads for flexor carpi ulnaris at end of {right} cubital tunnel with 15 blade scalpel.? Littler scissors were used to spread down to FCU fascia.? An incision was made in FCU fascia and ulnar nerve identified exiting cubital tunnel.? I proceeded with complete retrograde release of the cubital tunnel including 7cm proximal for the intermuscular septum.? The nerve appeared healthy with visible vaso nervorum.? There was no subluxation on full elbow range of motion. ? I irrigated with normal saline and closure with 4-0 monocryl for dermis and subcuticular. The wrist incision was covered with xerforom and the elbow with Dermabond then 4x4s, jillian, and a posterior elbow and volar wrist splint was applied for patient safety, security and comfort and secured with ashley bandages after the tourniquet was let down noting the hand was warm and well perfused.? Patient awaken from anesthesia and transferred to recovery in stable condition Complications - none EBL- 1cc Disposition - home in stable conditions maricruz nunez pa-c was essential for positioning, retraction, closure and dressing placement [facility] Billing Surgery - Charge Forward: Surgery Billing ([id number] same for sylvester adding modifier and omitting [id number])
--- NOTE | 2023-09-25 12:07 | WPDANESEPPF ---
Anes - Initial Pre Proc Eval Procedure: Operation Date: 09/25/23 13:15 Proposed Procedures p Revision Right Open Carpal Tunnel Release, Right Cubital Tunnel Release - Ana Luisa Contreras MD Date/Time: 09/25/23 12:07 Surgeon: Ana Luisa Contreras MD Pre Op Diagnosis: lesion right ulnar nerve,rt carpal tunnel syndr Patient Data Age: 42 Gender: F Height: 1.68 m Weight: 113.4 kg Allergies Allergy/AdvReac Type Severity Reaction Status Date / Time metoclopramide Allergy Severe Other Verified 09/18/23 15:58 Home Medications Medication Instructions Recorded Confirmed Type tizanidine 4 mg tablet 4 mg PO QHS PRN muscle spasticity 08/15/23 09/18/23 Rx #90 tabs duloxetine 60 mg capsule,delayed 60 mg PO DAILY 09/18/23 09/18/23 History release nebivolol 20 mg tablet 20 mg PO DAILY 09/18/23 09/18/23 History tramadol 50 mg tablet 50 mg PO Q6H PRN pain #12 tabs 09/25/23 Rx Patient hx anesthesia problems: none Family hx anesthesia problems: none Results Review: All pre-operative results and documents have been reviewed as part of the pre-operative evaluation. [facility] Past Medical History Medical History Anxiety and depression BMI 40.0-44.9, adult BMI greater than 40 Depression Essential (primary) hypertension Inflammatory arthritis Left hip pain Morbid (severe) obesity due to excess calories ADILSON (obstructive sleep apnea) Right low back pain Surgical History Surgical History H/O: hysterectomy History of History of cataract extraction History of cholecystectomy History of surgical procedure on eye proper using laser History of total left hip replacement 10/31/21 Family History Family History Father Hypertension Family history of heart disease in male family member before age 55 Peripheral artery disease Grandparent Hypertension Family history of malignant neoplasm of breast Mother Hypertension Sibling Peripheral artery disease Other Asthma Diabetes mellitus Heart disease High cholesterol Social History Social History Smoking status: Never smoker Second hand tobacco smoke exposure: No Additional smoking assessment comments: Denies tobacco use. 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 Gender identity (if verbalized by the patient): Female Sexual Orientation (if Verbalized by the Patient): Straight or Heterosexual Spiritual care concerns: No Agree to blood products: Yes Anes - Eval Final PreProcedure Day of Procedure 09/25/23 12:07 Patient weight: morbidly obese Heart: regular rate and rhythm Lungs: clear to auscultation Airway: Mallampati scale class III Neurological: alert and oriented Last oral intake: >/= 8 hours ASA classification: III Emergent: no Anesthetic plan: proceed Anesthesia type and monitoring: general LMA and standard monitoring Results Review: All pre-operative results and documents have been reviewed as part of the pre-operative evaluation. HTN, ADILSON on CPAP, settings uncertain. Informed Consent: The patient's anesthetic plan and its attendant risks and benefits were discussed with the patient/family/POA. Questions were solicited and an
[2023-09-25] MEDS: LACTATED RINGERS 1,000 ML 30 ML IV CONT ×2 (12:30→14:16)
[2023-09-25] MEDS: ceFAZolin 2 GM/D5W 50 ML 2 GM/50 ML BAG IVPB (13:20)
[2023-09-25] MEDS: LIDO 1%/EPINEPHRINE 1:100,000 50 ML VIAL INFILTRATE (13:36)
[2023-09-25] MEDS: BUPivacaine HCL 0.5% 10 ML AMP 5 ML INFILTRATE (13:37)
[2023-09-25] MEDS: fentaNYL CITRATE INJ (*CRX) 100 MCG/2 ML VIAL 25 MCG IV PUSH (14:37)
[2023-09-25] MEDS: oxyCODONE HCL (*CRX) 5 MG TAB IR PO (15:09)
== END 2023-09-25 15:42 | disposition home or self-care (01) ==
PROVIDERS: PCP Family Medicine; Visit Provider Plastic Surgery
PROC: (CPT 64721; principal; 2023-09-25 13:15)
DX: G56.01 Carpal tunnel syndrome, right upper limb (principal); G56.21 Lesion of ulnar nerve, right upper limb; I10 Essential (primary) hypertension; G47.33 Obstructive sleep apnea (adult) (pediatric); F41.8 Other specified anxiety disorders; E66.01 Morbid (severe) obesity due to excess calories; Z68.41 Body mass index [BMI] 40.0-44.9, adult
CPT/HCPCS: 64721; 64718; A9270; J0690; J2250; J2704; J3010; J7120

== ENCOUNTER 2023-10-21 16:41 | Emergency (ER) | payer OTHER, SELFPAY ==
[2023-10-21] VITALS (10 sets, daily range): BP systolic 177; BP diastolic 106; PULSE 88; RESP 15; TEMP 36.4; O2SAT 91–99
[2023-10-21] MEDS: PROCHLORPERAZINE EDISYLATE 10 MG/2 ML VIAL IM (21:47)
[2023-10-21] MEDS: HALOPERIDOL LACTATE 5 MG/ML VIAL IM (23:15)
--- NOTE | 2023-10-21 23:29 | PC.NURSE ---
care and report given to ELIAS Cook. all questions answered.
--- NOTE | 2023-10-21 23:58 | ED.HA ---
HPI - Headache General Chief Complaint: Headache Stated Complaint: headache Time Seen by Provider: 10/21/23 21:37 Related Data Home Medications Medication Instructions Recorded Confirmed duloxetine 60 mg capsule,delayed 60 mg PO DAILY 09/18/23 09/25/23 release nebivolol 20 mg tablet 20 mg PO DAILY 09/18/23 09/25/23 Allergies Allergy/AdvReac Type Severity Reaction Status Date / Time metoclopramide Allergy Severe Other Verified 09/25/23 12:19 Review of Systems Review of Systems: All systems reviewed & are unremarkable except as noted in HPI and below PMFSH Past Medical History Medical History Anxiety and depression BMI 40.0-44.9, adult BMI greater than 40 Depression Essential (primary) hypertension Inflammatory arthritis Left hip pain Morbid (severe) obesity due to excess calories ADILSON (obstructive sleep apnea) Right low back pain Surgical History Surgical History H/O: hysterectomy History of History of cataract extraction History of cholecystectomy History of surgical procedure on eye proper using laser History of total left hip replacement 10/31/21 Family History Family History Father Hypertension Family history of heart disease in male family member before age 55 Peripheral artery disease Grandparent Hypertension Family history of malignant neoplasm of breast Mother Hypertension Sibling Peripheral artery disease Other Asthma Diabetes mellitus Heart disease High cholesterol Social History Social History Smoking status: Never smoker Second hand tobacco smoke exposure: No Additional smoking assessment comments: Denies tobacco use. 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 EYES: EOMI, conjunctiva normal, R pupil dilated which is baseline for patient. ENT: Hearing grossly intact LUNGS: Nonlabored breathing. HEART: [Regular rate and rhythm] ABD: [Soft], [nontender to palpation] EXT: Normal range of motion SKIN: [No rashes or lesions.] NEURO: [Alert and oriented x 3. No focal sensory or strength deficits.] No facial droop. Clear speech, normal gait. No facial asymmetry PSYCH: Normal affect Course Vital Signs Vital signs: Vital Signs Temperature 97.5 F L 10/21/23 17:03 Pulse Rate 88 10/21/23 17:03 Respiratory Rate 15 10/21/23 17:03 Blood Pressure 177/106 H 10/21/23 17:03 Pulse Oximetry 96 10/21/23 17:03 Oxygen Delivery Room Air 10/21/23 17:03 Temperature 97.5 F L 10/21/23 17:03 Pulse Rate 88 10/21/23 17:03 Respiratory Rate 15 10/21/23 17:03 Blood Pressure 177/106 H 10/21/23 17:03 Pulse Oximetry 96 10/21/23 17:03 Oxygen Delivery Room Air 10/21/23 17:03 MDM - Headache MDM Narrative Medical decision ma
[2023-10-22 00:03] VITALS: O2SAT 97
[2023-10-22 00:15] VITALS: O2SAT 94
[2023-10-22 00:16] VITALS: O2SAT 96
[2023-10-22 00:33] VITALS: BP 143/98; PULSE 88; RESP 16; TEMP 36.7; O2SAT 98
== END 2023-10-22 00:34 | disposition home or self-care (01) ==
PROVIDERS: Emergency Provider Emergency Medicine; PCP Family Medicine
DX: R51.9 Headache, unspecified (principal); I10 Essential (primary) hypertension; E66.01 Morbid (severe) obesity due to excess calories; Z68.41 Body mass index [BMI] 40.0-44.9, adult; G47.33 Obstructive sleep apnea (adult) (pediatric); F41.9 Anxiety disorder, unspecified; F32.A Depression, unspecified; Z96.642 Presence of left artificial hip joint; Z90.710 Acquired absence of both cervix and uterus; Z98.49 Cataract extraction status, unspecified eye; Z79.82 Long term (current) use of aspirin; Z79.899 Other long term (current) drug therapy
CPT/HCPCS: 96372; 99284; J0780; J1630

== ENCOUNTER 2023-10-27 18:01 | Emergency (ER) | payer OTHER, SELFPAY ==
--- NOTE | ~2023-10-27 | CT_ITS ---
EXAMINATION: CT brain wo con DATE: 10/27/2023 19:56 INDICATION: Headache TECHNIQUE: Computed tomography (CT) of the head was performed without intravenous contrast. The mA wa s adjusted according to patient size. Iterative reconstruction technique was employed. Exam dose: 68 1.00 mGy-cm total exam DLP. COMPARISON: None FINDINGS: No intracranial mass lesion or hemorrhage or cerebrovascular accident, midline shift or mas s effect is noted. Normal ventricular size. No subdural or epidural hematoma. No fracture or bone destruction of the cranial vault. The paranasal sinuses and mastoid air cells are well-developed and aerated. IMPRESSION: No significant abnormality Reviewed, dictated and finalized at [facility]. Reviewed, dictated and finalized at [facility]. IMPRESSION: No significant abnormality
[2023-10-27 18:09] VITALS: BP 148/98; PULSE 91; RESP 18; TEMP 36.2; O2SAT 97
--- NOTE | 2023-10-27 19:44 | ED.GENADULT ---
HPI - General Adult General Chief complaint: Headache Stated complaint: Headache Time Seen by Provider: 10/27/23 18:58 History of Present Illness HPI narrative: This is a 42 year old female presenting to the ED with headaches. Patient was seen here 1 week ago and treated for a migraine. She then followed up her primary care physician who added a benzodiazepine, increase her blood pressure meds and started her on a restricted. The headache is a left frontal headache that is nonradiating, achy and constant. She has not had any fevers, neurologic deficits, urinary incontinence or difficulty walking. She also has difficulty concentrating, hot flashes, has been breaking down into tears over trivial events, is not sleeping well and has recently developed diarrhea. Related Data Home Medications Medication Instructions Recorded Confirmed duloxetine 60 mg capsule,delayed 60 mg PO DAILY 09/18/23 10/23/23 release nebivolol 20 mg tablet 40 mg PO DAILY 10/23/23 10/23/23 Allergies Allergy/AdvReac Type Severity Reaction Status Date / Time metoclopramide Allergy Severe Other Verified 10/23/23 12:45 [facility] Past Medical History Medical History Anxiety and depression BMI 40.0-44.9, adult BMI greater than 40 Depression Essential (primary) hypertension Inflammatory arthritis Left hip pain Migraine headache with aura Morbid (severe) obesity due to excess calories ADILSON (obstructive sleep apnea) Right low back pain Tachycardia Surgical History Surgical History H/O: hysterectomy History of History of cataract extraction History of cholecystectomy History of surgical procedure on eye proper using laser History of total left hip replacement 10/31/21 Family History Family History Father Hypertension Family history of heart disease in male family member before age 55 Peripheral artery disease Grandparent Hypertension Family history of malignant neoplasm of breast Mother Hypertension Sibling Peripheral artery disease Other Asthma Diabetes mellitus Heart disease High cholesterol Social History Social History Smoking status: Never smoker Second hand tobacco smoke exposure: No Additional smoking assessment comments: Denies tobacco use. 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 Head: atraumatic. EYES: EOMI, tonic right pupil, left is reactive NOSE: Atraumatic NECK: Trachea midline RESPIRATORY: No increased rate of breathing CARDIOVASCULAR: RRR, clear to auscultation ABDOMINAL: Non-distended soft nontender MUSCULOSKELETAl: No obvious deformities NEURO: Alert. Cranial nerves 2-12 grossly intact. Sensation light touch, motor function cerebellar function intact for 4 extremities. Gait exam was normal. SKIN:: Warm, dry. Normal color PSYCHIATRIC: Normal affect Course Vital Signs Vital signs: Vital Signs Temperature 97.2 F L 10/27/23 18:09 Pulse Rate 91 10/27/23 18:09 Respi
[2023-10-27 19:56] LABS: Basophils Percent Auto 0.4 % (0.2-1.2); Eosinophils Absolute Auto 0.2 K/mm3 (0-0.3); Eosinophils Percent Auto 1.8 % (0-4.4); Hematocrit 35.1 % (37.0-47.0); Hemoglobin 11.2 g/dL (12.0-15.0); Immature Granulocyte Absolute 0.08 K/mm3 (0.00-0.031); Immature Granulocyte Percent A 0.7 % (0-0.5); Lymphocytes Absolute Auto 1.71 K/mm3 (0.9-3.2); Lymphocytes Percent Auto 15.4 % (18.3-44.2); Mean Corpuscular HGB Conc 31.9 g/dl (32-36); Mean Corpuscular Hemoglobin 28.6 pg (26-34); Mean Corpuscular Volume 89.5 fl (80-100); Mean Platelet Volume 9.3 fl (7.4-10.4); Monocytes Absolute Auto 0.7 K/mm3 (0.1-0.6); Neutrophils Absolute Auto 8.4 K/mm3 (1.3-6.7); Neutrophils Percent Auto 75.7 % (45.5-73.1); Platelet Count Result 331 k/mm3 (150-375); Red Blood Count 3.92 M/mm3 (4.2-5.4); Red Cell Distribution Width 14.8 % (11.5-14.5); White Blood Count 11.1 K/mm3 (4.5-10.0)
[2023-10-27 20:07] LABS: Alanine Aminotransferase 160 U/L (6-35); Albumin Level 3.9 g/dL (3.5-5.1); Alkaline Phosphatase 147 U/L (38-126); Anion Gap 8 mmol/L (4-12); Aspartate Amino Transferase 298 U/L (14-36); Bilirubin,Total 0.7 mg/dL (0.2-1.3); Blood Urea Nitrogen 7 mg/dL (7-17); Carbon Dioxide 30 mmol/L (22-30); Chloride 96 mmol/L (98-107); Estimated CRCL calculation 157 ml/min; Estimated Glomerular Filt Rate > 60; Glucose 108 mg/dL (65-110); Magnesium 1.8 mg/dL (1.6-2.3); Potassium 3.5 mmol/L (3.4-5.0); Sodium 134 mmol/L (137-145)
[2023-10-27 20:15] VITALS: BP 143/91; PULSE 86; RESP 18; TEMP 36.9; O2SAT 99
[2023-10-27 20:18] LABS: Add Urine Microscopic? NO; Appearance Urine Clear (Clear); Bilirubin Urine Negative (Negative); Blood Urine Negative (Negative); Color Urine Yellow (Yellow); Glucose Urine UA Negative (Negative); Ketones Urine Negative (Negative); Leukocyte Esterase Ur Negative LEU/UL (Negative); Nitrate Urine Negative (Negative); Protein Urine Negative (Negative); Specific Grav Ur 1.008 (1.001-1.035); Urobilinogen Urine 0.2 mg/dL (<2.0); pH Urine 6.5 (5.0-9.0)
[2023-10-27] MEDS: SODIUM CHLORIDE 0.9% IV 2,000 ML 999 ML IV CONT (20:24)
[2023-10-27] MEDS: diphenhydrAMINE HCl INJ 50 MG/ML VIAL 25 MG IV PUSH (20:27)
[2023-10-27] MEDS: ACETAMINOPHEN 500 MG TABLET 1000 MG PO (20:27)
[2023-10-27] MEDS: PROCHLORPERAZINE EDISYLATE 10 MG/2 ML VIAL IM (20:28)
[2023-10-27 20:32] LABS: Influenza A QL RT-PCR Negative (Negative); Influenza B QL RT-PCR Negative (Negative); RSV RNA, RT-PCR Negative (Negative); SARS-CoV-2 RNA PCR Negative (Negative)
[2023-10-27 22:07] VITALS: BP 135/78; PULSE 92; RESP 18; TEMP 36.4; O2SAT 94
== END 2023-10-27 22:10 | disposition home or self-care (01) ==
PROVIDERS: Emergency Provider Emergency Medicine; PCP Family Medicine
DX: G43.909 Migraine, unspecified, not intractable, without status migrainosus (principal); I10 Essential (primary) hypertension; E66.01 Morbid (severe) obesity due to excess calories; Z68.41 Body mass index [BMI] 40.0-44.9, adult; G47.33 Obstructive sleep apnea (adult) (pediatric); Z96.642 Presence of left artificial hip joint; Z90.49 Acquired absence of other specified parts of digestive tract; Z90.710 Acquired absence of both cervix and uterus; Z79.899 Other long term (current) drug therapy
CPT/HCPCS: 36415; 70450; 80053; 81003; 83735; 85025; 87637; 96361; 96372; 96374; 99284; A9270; J0780; J1200; J7030

== ENCOUNTER 2023-10-30 13:07 | Emergency (ER) | payer OTHER, SELFPAY ==
--- NOTE | ~2023-10-30 | XR_ITS ---
XR hip LT 2V w AP pelvis Ordering provider: Laxmi Gandhi PA-C History: . fall 2 days ago, L hip pain, hx replacement . Comparison: April 08, 2023 FINDINGS: BONES: No acute fracture or dislocation. HIP JOINT SPACES: Left hip arthroplasty. SACROILIAC JOINT SPACES: Right sacroiliitis. PUBIC SYMPHYSIS: Normal. SOFT TISSUES: Normal. IMPRESSION: No acute osseous abnormality. Left hip arthroplasty. Reviewed, dictated and finalized at location [facility].
--- NOTE | ~2023-10-30 | XR_ITS ---
XR scapula RT Ordering provider: Laxmi Gandhi PA-C History: . fall 2 days ago, R pain . Comparison: None. FINDINGS: BONES: No acute fracture or dislocation. JOINT SPACES: Normal. SOFT TISSUES: Normal. IMPRESSION: No acute osseous abnormality right scapula. Reviewed, dictated and finalized at [facility].
--- NOTE | ~2023-10-30 | CT_ITS ---
EXAMINATION: CT brain wo con DATE: 10/30/2023 14:00 INDICATION: Head injury. TECHNIQUE: Computed tomography (CT) of the head was performed without intravenous contrast. The mA wa s adjusted according to patient size. Iterative reconstruction technique was employed. The dose-lengt h product was 681.00 mGy-cm. COMPARISON: Head CT 10/27/2023 FINDINGS: There is no intracranial hemorrhage, acute infarction, or abnormal intracranial mass lesion . The ventricles are normal in size. The paranasal sinuses are clear. There are likely changes of ocu lar lens replacement surgeries. The mastoid air cells are normal. IMPRESSION: 1. Normal brain. Reviewed, dictated and finalized at location [facility]. IMPRESSION: 1. Normal brain.
--- NOTE | ~2023-10-30 | XR_ITS ---
3 VIEWS LUMBAR SPINE Ordering provider: Laxmi Gandhi PA-C History: . fall 2 days ago, lbp . Comparison: None. FINDINGS: VERTEBRAL BODIES: No visible fracture or subluxation. DISK SPACES: Narrowing of the disc L5-S1. Facet joint disease at the level of L5-S1. SOFT TISSUES: Normal. Right sacroiliitis. IMPRESSION: No acute osseous abnormality lumbar spine. Reviewed, dictated and finalized at location [facility].
[2023-10-30 13:32] VITALS: BP 146/91; PULSE 74; RESP 19; TEMP 36.6; O2SAT 98
--- NOTE | 2023-10-30 13:37 | ED.FALL ---
HPI - Fall General Chief Complaint: Fall <ROGER Au Last Filed: 10/30/23 13:46> Stated Complaint: Fall 10/28/23, Generalized pain <ROGER Au Last Filed: 10/30/23 13:46> Time Seen by Provider: 10/30/23 13:37 <ROGER Au Last Filed: 10/30/23 13:46> Focused HPI: patient is a 42-year-old female who presents the ED with multiple areas of pain. Patient reports she tripped and fell at work Saturday night. She hit her head when she fell, but denied LOC. Was advised to come to the ED by her work. Has had intermittent HAs since the fall, but does have hx of migraines. C/o pain to her lower back. Worse throughout her L sided, radiating into her L buttock. Also reports pain to R scapular region. Denies bowel or bladder incontinence, saddle anesthesia, numbness. Denies vision changes, dizziness, lightheadedness. Has been taking ibuprofen and Tylenol for her pain. Took 800 mg of ibuprofen and 1000mg of tylenol at 8:00 a.m. this morning. GENERAL: Well-appearing, morbidly obese with BMI of 41.3, and in no acute distress. HEAD: Normocephalic, atraumatic. EYES: PERRL/EOMI, conjunctiva clear. CHEST: Clear to auscultation. ?No respiratory distress. HEART: Regular rate and rhythm.? MSK: TTP over R posterior shoulder, medial scapular region. Diffuse tenderness to palpation throughout lumbosacral region and over L SI region. No significant midline lumbar spinal tenderness. No palpable bony deformities. No tenderness throughout cervical midline spine. NEURO: ?Alert and oriented x3. Patient screened in triage and initial orders placed.? ?Additional care and disposition to be based upon?diagnostic testing and treatment. <ROGER Au Last Filed: 10/30/23 13:46> Source: patient <ROGER Au Last Filed: 10/30/23 13:46> Mode of arrival: ambulatory <ROGER Au Filed: 10/30/23 13:46> Limitations: no limitations <ROGER Au Last Filed: 10/30/23 13:46> History of Present Illness HPI Narrative: Agree with the above with the following additions/corrections: Left hip [place] [address] Amezquita. 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 Fall occurred on 10/27/21. Having general aches/pains as well as right shoulder pain, bilateral leg weakness. She states her legs feel heavy and tired. She has been taking maximum doses of ibuprofen and Tylenol per day. <Viky Fuentes MD - Last Filed: 10/31/23 19:55> Related Data Home Medications: Home Medications Medication Instructions Recorded Confirmed duloxetine 60 mg capsule,delayed 60 mg PO DAILY 09/18/23 10/29/23 release <Laxmi Gandhi PA-C - Last Filed: 10/30/23 13:46> Allergies/Adverse Reactions: Allergies Allergy/AdvReac Type Severity Reaction Status Date / Time metoclopramide Allergy Severe Other Verified 10/30/23 13:36 <Laxmi Gandhi PA-C - Last Filed: 10/30/23 13:46> [facility] Past Medical History Medical History: Medical History (Updated 10/31/23 @ 00:01 by Background Daemon) Anxiety and depression BMI 40.0-44.9, adult BMI greater than 40 Depression Elevated liver function tests Essential (primary) hypertension Hyponatremia Inflammatory arthritis Left hip pain Migraine headache with aura Morbid (severe) obesity due to excess calories ADILSON (obstructive sleep apnea) Right low back pain Tachycardia <ROGER Au Last Filed: 10/30/23 13:46> Surgical History Surgical History: Surgical History (Updated 10/31/23 @ 00:01 by Background Daemon) H/O: hysterectomy History of History of cataract extraction History of cholecystectomy History of surgical procedure on eye proper using laser History of total left hip replacement 10/31/21 <ROGER Au Last Filed: 10/30/23 13:46> Family History
[2023-10-30 14:04] VITALS: BP 152/94; PULSE 75; RESP 18; O2SAT 98
[2023-10-30] MEDS: methocarbamoL 500 MG TABLET 1000 MG PO (14:05)
[2023-10-30] MEDS: ACETAMINOPHEN 500 MG TABLET 1000 MG PO (14:05)
[2023-10-30 15:01] VITALS: BP 127/72; PULSE 79; RESP 18; O2SAT 99
[2023-10-30 15:41] LABS: Basophils Percent Auto 0.5 % (0.2-1.2); Eosinophils Absolute Auto 0.2 K/mm3 (0-0.3); Eosinophils Percent Auto 2.7 % (0-4.4); Hematocrit 32.3 % (37.0-47.0); Hemoglobin 10.1 g/dL (12.0-15.0); Immature Granulocyte Absolute 0.04 K/mm3 (0.00-0.031); Immature Granulocyte Percent A 0.5 % (0-0.5); Lymphocytes Percent Auto 25.2 % (18.3-44.2); Mean Corpuscular HGB Conc 31.3 g/dl (32-36); Mean Corpuscular Hemoglobin 28.5 pg (26-34); Mean Corpuscular Volume 91.2 fl (80-100); Mean Platelet Volume 9.1 fl (7.4-10.4); Monocytes Absolute Auto 0.6 K/mm3 (0.1-0.6); Monocytes Percent Auto 7.8 % (2.6-8.5); Neutrophils Absolute Auto 4.8 K/mm3 (1.3-6.7); Neutrophils Percent Auto 63.3 % (45.5-73.1); Platelet Count Result 312 k/mm3 (150-375); Red Blood Count 3.54 M/mm3 (4.2-5.4); Red Cell Distribution Width 14.8 % (11.5-14.5); White Blood Count 7.5 K/mm3 (4.5-10.0)
[2023-10-30 15:51] LABS: Alanine Aminotransferase 107 U/L (6-35); Albumin Level 3.8 g/dL (3.5-5.1); Alkaline Phosphatase 156 U/L (38-126); Anion Gap 6 mmol/L (4-12); Aspartate Amino Transferase 66 U/L (14-36); Bilirubin,Total 0.2 mg/dL (0.2-1.3); Blood Urea Nitrogen 7 mg/dL (7-17); Calcium 8.8 mg/dL (8.4-10.2); Carbon Dioxide 31 mmol/L (22-30); Chloride 98 mmol/L (98-107); Creatine Kinase 69 U/L (30-135); Estimated CRCL calculation 134 ml/min; Estimated Glomerular Filt Rate > 60; Glucose 96 mg/dL (65-110); Potassium 3.7 mmol/L (3.4-5.0); Sodium 135 mmol/L (137-145)
[2023-10-30 17:00] VITALS: BP 139/78; PULSE 76; RESP 16; O2SAT 100
== END 2023-10-30 17:00 | disposition home or self-care (01) ==
PROVIDERS: Emergency Provider Student in an Organized Health Care Education/Training Program; PCP Family Medicine
DX: M25.50 Pain in unspecified joint (principal); D64.9 Anemia, unspecified; R74.01 Elevation of levels of liver transaminase levels; M79.605 Pain in left leg; M79.604 Pain in right leg; W01.0XXA Fall on same level from slipping, tripping and stumbling without subsequent striking against object, initial encounter; Y99.0 Civilian activity done for income or pay; Z96.642 Presence of left artificial hip joint
CPT/HCPCS: 36415; 70450; 72110; 73010; 73502; 80053; 82550; 83735; 85025; 99284; A9270

== ENCOUNTER 2023-11-19 10:25 | Outpatient (CLI) | payer OTHER, SELFPAY ==
[2023-11-19 12:47] LABS: Basophils Absolute Auto 0.1 K/mm3 (0.0-0.1); Basophils Percent Auto 0.6 % (0.2-1.2); Eosinophils Absolute Auto 0.3 K/mm3 (0-0.3); Eosinophils Percent Auto 2.4 % (0-4.4); Hematocrit 39.8 % (37.0-47.0); Hemoglobin 12.1 g/dL (12.0-15.0); Immature Granulocyte Absolute 0.08 K/mm3 (0.00-0.031); Immature Granulocyte Percent A 0.6 % (0-0.5); Lymphocytes Absolute Auto 2.46 K/mm3 (0.9-3.2); Lymphocytes Percent Auto 18.9 % (18.3-44.2); Mean Corpuscular HGB Conc 30.4 g/dl (32-36); Mean Corpuscular Hemoglobin 27.7 pg (26-34); Mean Corpuscular Volume 91.1 fl (80-100); Mean Platelet Volume 9.5 fl (7.4-10.4); Monocytes Absolute Auto 0.8 K/mm3 (0.1-0.6); Monocytes Percent Auto 5.8 % (2.6-8.5); Neutrophils Absolute Auto 9.4 K/mm3 (1.3-6.7); Neutrophils Percent Auto 71.7 % (45.5-73.1); Platelet Count Result 432 k/mm3 (150-375); Red Blood Count 4.37 M/mm3 (4.2-5.4); Red Cell Distribution Width 14.4 % (11.5-14.5)
[2023-11-19 13:41] LABS: Alanine Aminotransferase 23 U/L (6-35); Albumin Level 4.6 g/dL (3.5-5.1); Alkaline Phosphatase 153 U/L (38-126); Anion Gap 10 mmol/L (4-12); Aspartate Amino Transferase 53 U/L (14-36); Bilirubin,Total 0.7 mg/dL (0.2-1.3); Blood Urea Nitrogen 16 mg/dL (7-17); Calcium 9.3 mg/dL (8.4-10.2); Carbon Dioxide 27 mmol/L (22-30); Chloride 98 mmol/L (98-107); Estimated Glomerular Filt Rate > 60; Glucose 119 mg/dL (65-110); Potassium 4.3 mmol/L (3.4-5.0); Sodium 135 mmol/L (137-145)
== END 2023-11-19 10:26 | disposition home or self-care (01) ==
LOC: ANHGOSHLAB 10:26
PROVIDERS: PCP Family Medicine; Visit Provider Nurse Practitioner Adult Health
DX: E87.1 Hypo-osmolality and hyponatremia (principal); R79.89 Other specified abnormal findings of blood chemistry
CPT/HCPCS: 36415; 80053; 85025

== ENCOUNTER 2023-12-06 09:16 | Outpatient (CLI) | payer OTHER, SELFPAY ==
[2023-12-06 09:31] LABS: Basophils Absolute Auto 0.1 K/mm3 (0.0-0.1); Basophils Percent Auto 0.6 % (0.2-1.2); Eosinophils Absolute Auto 0.2 K/mm3 (0-0.3); Eosinophils Percent Auto 2.2 % (0-4.4); Hematocrit 34.6 % (37.0-47.0); Hemoglobin 10.9 g/dL (12.0-15.0); Immature Granulocyte Absolute 0.07 K/mm3 (0.00-0.031); Immature Granulocyte Percent A 0.8 % (0-0.5); Lymphocytes Absolute Auto 2.05 K/mm3 (0.9-3.2); Lymphocytes Percent Auto 22.8 % (18.3-44.2); Mean Corpuscular HGB Conc 31.5 g/dl (32-36); Mean Corpuscular Hemoglobin 28.5 pg (26-34); Mean Corpuscular Volume 90.6 fl (80-100); Mean Platelet Volume 8.8 fl (7.4-10.4); Monocytes Absolute Auto 0.6 K/mm3 (0.1-0.6); Monocytes Percent Auto 6.9 % (2.6-8.5); Neutrophils Percent Auto 66.7 % (45.5-73.1); Platelet Count Result 339 k/mm3 (150-375); Red Blood Count 3.82 M/mm3 (4.2-5.4); Red Cell Distribution Width 14.5 % (11.5-14.5)
[2023-12-06 09:58] LABS: Alanine Aminotransferase 23 U/L (6-35); Albumin Level 4.1 g/dL (3.5-5.1); Alkaline Phosphatase 112 U/L (38-126); Anion Gap 8 mmol/L (4-12); Aspartate Amino Transferase 21 U/L (14-36); Bilirubin,Total 0.4 mg/dL (0.2-1.3); Blood Urea Nitrogen 13 mg/dL (7-17); Calcium 9.2 mg/dL (8.4-10.2); Carbon Dioxide 26 mmol/L (22-30); Chloride 103 mmol/L (98-107); Estimated Glomerular Filt Rate > 60; Glucose 131 mg/dL (65-110); Potassium 3.8 mmol/L (3.4-5.0); Sodium 137 mmol/L (137-145)
== END 2023-12-06 09:17 | disposition home or self-care (01) ==
PROVIDERS: PCP Family Medicine; Visit Provider Nurse Practitioner Adult Health
DX: D72.829 Elevated white blood cell count, unspecified (principal); E87.1 Hypo-osmolality and hyponatremia
CPT/HCPCS: 36415; 80053; 85025

== ENCOUNTER 2023-12-27 09:00 | Outpatient (CLI) | payer OTHER, SELFPAY ==
--- NOTE | ~2023-12-27 | CT_ITS ---
CT of the Abdomen and Pelvis: Indication: Anemia Technique: 2.5 mm axial scans were obtained through the abdomen and pelvis following intravenous adm inistration of 100 cc of Omnipaque 350. Dose reduction technique was used on this scan by utilizing a utomated exposure control and iterative reconstruction technique. The dose-length product (DLP) was 1 082.52 mGy-cm. COMPARISON: 07/26/2023 Findings: Scans through the lung bases are unremarkable. The liver, spleen, pancreas, adrenals and kidneys are within normal limits. Cholecystectomy clips are present. No evidence of aortic aneurysm. No lymphadenopathy. No bowel obstruction or bowel wall thickening. There is no evidence to suggest acute appendicitis. Ti ny fat-containing umbilical hernia present. Images through the pelvis were performed. Urinary bladder unremarkable. No pelvic mass seen. No ascit es. Impression: No significant abnormalities seen. Reviewed, dictated and finalized at [facility]. Impression: No significant abnormalities seen.
[2023-12-27 09:37] LABS: Estimated Glomerular Filt Rate > 60
== END 2023-12-27 09:01 | disposition home or self-care (01) ==
PROVIDERS: PCP Family Medicine; Visit Provider Nurse Practitioner Adult Health
DX: D64.9 Anemia, unspecified (principal)
CPT/HCPCS: 74177; Q9967

== ENCOUNTER 2024-01-24 09:09 | Outpatient (CLI) | payer OTHER, SELFPAY ==
[2024-01-24 09:47] LABS: Hemoglobin A1C 6.7 % (<5.7)
[2024-01-24 09:50] LABS: Iron 64 ug/dL (37-170)
[2024-01-24 10:00] LABS: Percent Iron Saturation 17 % (20-50)
[2024-01-24 11:32] LABS: Folic Acid 5.8 ng/mL (2.76->20)
== END 2024-01-24 09:10 | disposition home or self-care (01) ==
LOC: ANHLAB 09:10
PROVIDERS: PCP Family Medicine; Visit Provider Nurse Practitioner Adult Health
DX: D64.9 Anemia, unspecified (principal); R73.09 Other abnormal glucose
CPT/HCPCS: 36415; 82607; 82746; 83036; 83540; 83550

== ENCOUNTER 2024-02-01 09:38 | Emergency (ER) | payer OTHER, SELFPAY ==
[2024-02-01 10:03] VITALS: BP 136/84; PULSE 91; RESP 16; TEMP 36.6; O2SAT 100
--- NOTE | 2024-02-01 10:55 | ED.URI ---
HPI - URI/Sore Throat General Chief Complaint: Upper Respiratory Infection Stated Complaint: Cough/Congestion/Headache Time Seen by Provider: 02/01/24 10:55 Source: patient Mode of arrival: ambulatory Limitations: no limitations History of Present Illness HPI Narrative: 43 yo F presents with c/o cough, chest congestion, sore throat, nasal drainage for 3 days. Taking OTC mucinex to treat symptoms. Congestion worse, feels like has fever today. chills and bodyaches. Pt's and child just diagnosed with pneumonia. All systems reviewed and negative except as noted above. Related Data Home Medications Medication Instructions Recorded Confirmed duloxetine 60 mg capsule,delayed 60 mg PO DAILY 09/18/23 02/01/24 release Allergies Allergy/AdvReac Type Severity Reaction Status Date / Time metoclopramide Allergy Severe Other Verified 02/01/24 10:28 Review of Systems Review of Systems: CONSTITUTIONAL: Denies fever. Reports chills, or sweats. EYES: Denies visual changes, redness, or discharge. ENT: Reports rhinorrhea, congestion, sore throat. Denies otalgia. CARDIOVASCULAR: Denies chest pain, palpitations, or edema. RESPIRATORY: Reports cough. Denies dyspnea. GASTROINTESTINAL: Denies abdominal pain, nausea, vomiting, or diarrhea. GENITOURINARY: Denies dysuria or hematuria. SKIN: Denies rash or itching. MUSCULOSKELETAL: Denies back pain, joint pain. Reports myalgia. NEUROLOGIC: Denies headache, numbness, or weakness. PSYCHIATRIC: Denies anxiety or depression. All other systems reviewed are negative, except as documented in HPI. COUNT INCLUDES THE [facility] Past Medical History Medical History (Updated 02/01/24 @ 11:00 by Kandis Stephen NP) Anxiety and depression Depression Diabetes mellitus type 2, noninsulin dependent Elevated liver function tests Essential (primary) hypertension Hyponatremia Inflammatory arthritis Iron deficiency anemia Left hip pain Migraine headache with aura Morbid (severe) obesity due to excess calories ADILSON (obstructive sleep apnea) Right low back pain Tachycardia Surgical History Surgical History (Updated 12/05/23 @ 13:42 by Hilda Santiago Michael) H/O: hysterectomy (01/02/17) RATLH menometrorrhagia, dysmenorrhea, enlarges uterus - proliferative phase endometrium History of (01/28/14) History of cataract extraction History of cholecystectomy (~2008) History of gynecological procedure (05/06/12) mirena iud removal History of hysteroscopy (08/02/16) Hysteroscopy D&C / Menometrorrhagia; dysmenorrhea; endometrial hypertrophy-benign History of hysteroscopy (02/11/12) Hysteroscopy/D&C - dysmenorrhea, menometrorrhagia, Mirena IUD insertion History of hysteroscopy (11/07/06) Laparoscopy, Hysteroscopy, D&C - pelvic pain, irregular bleeding History of hysteroscopy (04/26/05) D&C - dysmenorrhea, menometrorrhagia History of surgical procedure on eye proper using laser (~2010) History of total left hip replacement 10/31/21 Family History Family History (Updated 12/05/23 @ 13:43 by Hilda Santiago, [facility]) Father Hypertension Family history of heart disease in male family member before age 55 Peripheral artery disease Heart disease Grandparent Hypertension Family history of malignant neoplasm of breast Breast cancer paternal grandmother Mother Hypertension Heart disease Sibling Peripheral artery disease Other Asthma Diabetes mellitus High cholesterol Social History Social History Smoking status: Never smoker Second hand tobacco smoke exposure: No Additional smoking assessment comments: Denies tobacco use. 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 There is no relevant family history pertinent to the presenting complaint. Exam Narrative: GENERAL: This is a well-nourished, well-developed patient, in no apparent distress. HEAD: normocephalic, atraumatic. EYES: PERRL. Sclera clear/white. Vision is grossly intact. EARS: External ears normal, auditory canals clear and without drainage, TMs normal without perforation. Hearing grossly intact. NOSE: External nose normal with purulence nasal drainage, mild congestion THROAT: Mucous membranes moist, posterior pharynx clear. NECK: Neck supple, non-tender without lymphadenopathy, masses or thyromegaly. CARDIOVASCULAR: Regular rate and rhythm without murmurs, gallops, or rubs. RESPIRATORY: Rhonchi, coarse to left lower lung field. Breath sounds equal bilaterally. No wheezes, rales SKIN: warm, Dry, intact with no suspicious lesions or rash, good texture and turgor. NEURO: awake, alert, and oriented to person, place and time. There were no obvious focal neurologic abnormalities. EXTREMITIES: No joint tenderness, effusion, or edema noted. Course Course Level of Care: Express Care Visit Vital Signs Vital signs: Vital Signs Temperature 36.6 C 02/01/24 10:03 Pulse Rate 91 02/01/24 10:03 Respiratory Rate 16 02/01/24 10:03 Blood Pressure 136/84 02/01/24 10:03 Pulse Oximetry 100 02/01/24 10:03 Temperature 36.6 C 02/01/24 10:03 Pulse Rate 91 02/01/24 10:03 Respiratory Rate 16 02/01/24 10:03 Blood Pressure 136/84 02/01/24 10:03 Pulse Oximetry 100 02/01/24 10:03 Reviewed MDM - URI/Sore Throat MDM Narrative Medical decision making narrative: Will treat patient for pneumonia today with antibiotic due to recent exposure, rhonchi to left lower lung field. Patient nontoxic. Vital signs stable. Patient is aware of diagnosis, understands and agrees to treatment plan. Anticipatory guidance given. Patient agrees to follow-up as directed and is aware of reasons to seek care at the emergency department. Portions of this record may have been created with voice recognition software Differential Diagnosis Differential diagnosis: Likely upper respiratory infection, sinusitis, viral infection and other (Pneumonia) Discharge Plan Discharge Clinical Impression: Upper respiratory infection with cough and congestion, Exposure to pneumonia Patient Disposition: Home, Self-Care Condition: Stable Instructions: Antibiotic Form Additional Instructions: Take medications as prescribed. Continue [id number] Mucinex as directed on packaging. Take ibuprofen or Tylenol every 6-8 hours as needed for pain and fever. Drink at least 64 oz of water a day. Follow-up with your doctor if symptoms are not improving. Prescriptions: New doxycycline hyclate 100 mg capsule 100 mg PO BID 7 Days Qty: 14 0RF benzonatate 200 mg capsule 200 mg PO TID PRN (Reason: cough) Qty: 20 0RF No Action sertraline 25 mg tablet 25 mg PO DAILY Qty: 30 2RF topiramate [Topamax] 25 mg tablet 25 mg PO DAILY Qty: 30 3RF nebivolol 20 mg tablet 40 mg PO DAILY Qty: 60 3RF rizatriptan 5 mg tablet 5 mg PO .COMPLEX Qty: 9 3RF Rx Instructions: 5 mg orally; ok to repeat dose in 2 hours if no relief, max dose 30mg in 24 hours. alprazolam 0.5 mg tablet 0.5 mg PO TID PRN (Reason: anxiety) Qty: 30 0RF Rx Instructions: Ok to take 1/2 tablet or 1 full tablet TID PRN. lisinopril 10 mg tablet 10 mg PO DAILY Qty: 30 3RF duloxetine 60 mg capsule,delayed release(DR/EC) 60 mg PO DAILY Excedrin Extra Strength 250-250-65 mg tablet 1 tablet PO Q4-6H PRN (Reason: headache) Qty: 14 0RF ondansetron 4 mg tablet,disintegrating 4 mg PO Q8H PRN (Reason: nausea and vomiting) Qty: 10 0RF ibuprofen 600 mg tablet 600 mg PO TID PRN (Reason: pain) Qty: 20 0RF acetaminophen 500 mg capsule 1,000 mg PO Q6H PRN (Reason: pain) Qty: 20 0RF tizanidine 4 mg tablet 4 mg PO QHS PRN (Reason: muscle spasticity) Qty: 90 0RF ferrous sulfate 325 mg (65 mg iron) tablet,delayed release (DR/EC) 325 mg PO DAILY Qty: 30 6RF metformin 500 mg tablet extended release 24 hr 500 mg PO QPM Qty: 30 6RF mecobalamin (vitamin B12) 1,000 mcg tablet,chewable 1,000 mcg PO DAILY Qty: 30 2RF Follow-up/Referrals: Josse Hernandez MD [Primary Care Provider] - Time of Disposition: 11:01
== END 2024-02-01 11:05 | disposition home or self-care (01) ==
PROVIDERS: Emergency Provider Nurse Practitioner Family; PCP Family Medicine
DX: J06.9 Acute upper respiratory infection, unspecified (principal); Z20.89 Contact with and (suspected) exposure to other communicable diseases; E11.9 Type 2 diabetes mellitus without complications; I10 Essential (primary) hypertension; D50.9 Iron deficiency anemia, unspecified; M13.80 Other specified arthritis, unspecified site; E66.01 Morbid (severe) obesity due to excess calories; Z68.41 Body mass index [BMI] 40.0-44.9, adult; Z96.642 Presence of left artificial hip joint
CPT/HCPCS: 99213; G0463

== ENCOUNTER 2024-03-21 14:40 | Emergency (ER) | payer OTHER, SELFPAY ==
--- NOTE | ~2024-03-21 | XR_ITS ---
XR chest 2V Ordering provider: Luis E Gonzalez MD History: 43 years Female with . CHEST PAIN . Comparison: February 08, 2021 FINDINGS: MEDIASTINUM: The cardiac silhouette is not enlarged. LUNGS: No infiltrates, effusions or pneumothorax. OTHER: No free air under the diaphragm. Degenerative changes of the spine. IMPRESSION: No acute cardiopulmonary pathology. Reviewed, dictated and finalized at location [facility]. [facility]
--- NOTE | 2024-03-21 14:43 | ECG_ITS ---
Test Date: 2024-03-21 23:23:27 Measurements Intervals [place] Rate: 58 P: 12 NV: 148 QRS: 39 QRSD: 104 T: 19 QT: 425 QTc: 421 Interpretive Statements SINUS BRADYCARDIA OTHERWISE NORMAL ECG Compared to ECG 03/21/2024 14:50:20 Sinus rhythm no longer present T-wave abnormality no longer present Electronically Signed On 03-22-2024 08:29:54 [employer] by Malik Cazares M.D.
--- NOTE | 2024-03-21 14:45 | ED_ITS ---
HPI - Chest Pain General Chief Complaint: Chest Pain Stated Complaint: CHEST/L ARM PAIN SINCE SATURDAY Time Seen by Provider: 03/21/24 14:45 Focused HPI: This is a 43 year old female that presents to the ER for chest pain. Ongoing over the last 5 days. Reports left sided chest pain. Reports she thought she maybe pulled a muscle. Reports the pain has spread down into her arm. Reports last night the pain was so bad she could not sleep. Reports history of hypertension. Reports family history of CAD. Denies fever, cough, shortness of breath, lower extremity edema. GENERAL: Well-appearing, well-nourished, and in no acute distress. HEAD: Normocephalic, atraumatic. CHEST: Clear to auscultation. ?No respiratory distress. HEART: Regular rate and rhythm.? NEURO: ?Alert and oriented x3. Patient screened in triage and initial orders placed.? ?Additional care and disposition to be based upon?diagnostic testing and treatment. Related Data Home Medications ?Medication ?Instructions ?Recorded ?Confirmed ?Last Taken ?Type duloxetine 60 mg capsule,delayed 60 mg PO DAILY 09/18/23 02/05/24 09/25/23 History release Allergies Allergy/AdvReac Type Severity Reaction Status Date / Time metoclopramide Allergy Severe Other Verified 03/21/24 14:41 Review of Systems 2 Review of Systems: CONSTITUTIONAL: Denies fever CARDIOVASCULAR: Reports chest pain RESPIRATORY: Denies dyspnea. All systems reviewed & are unremarkable except as noted in HPI and below PMFSH Past Medical History Medical History Iron deficiency anemia Diabetes mellitus type 2, noninsulin dependent Elevated liver function tests Hyponatremia Tachycardia Migraine headache with aura Inflammatory arthritis Depression ADILSON (obstructive sleep apnea) Left hip pain Morbid (severe) obesity due to excess calories Anxiety and depression Essential (primary) hypertension Right low back pain Surgical History Surgical History History of hysteroscopy (04/26/05) D&C - dysmenorrhea, menometrorrhagia History of hysteroscopy (11/07/06) Laparoscopy, Hysteroscopy, D&C - pelvic pain, irregular bleeding History of hysteroscopy (02/11/12) Hysteroscopy/D&C - dysmenorrhea, menometrorrhagia, Mirena IUD insertion History of gynecological procedure (05/06/12) mirena iud removal History of hysteroscopy (08/02/16) Hysteroscopy D&C / Menometrorrhagia; dysmenorrhea; endometrial hypertrophy- benign History of total left hip replacement 10/31/21 History of cataract extraction History of surgical procedure on eye proper using laser (~2010) History of (01/28/14) H/O: hysterectomy (01/02/17) RATLH menometrorrhagia, dysmenorrhea, enlarges uterus - proliferative phase endometrium History of cholecystectomy (~2008) Family History Family History Father Hypertension Family history of heart disease in male family member before age 55 Peripheral artery disease Heart disease Grandparent Hypertension Family history of malignant neoplasm of breast Breast cancer paternal grandmother Mother Hypertension Heart disease Sibling Peripheral artery disease Other Asthma Diabetes mellitus High cholesterol Social History Social History Smoking status: Never smoker Second hand tobacco smoke exposure: No Additional smoking assessment comments: Denies tobacco use. 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 HEAD: Normocephalic, atraumatic. EYES: EOMI. NECK: Supple. No adenopathy or masses. CHEST: Clear to auscultation. No respiratory distress. No wheezes rales or rhonchi HEART: Regular rate and rhythm. No murmur heard. Normal peripheral pulses. EXTREMITIES: Normal range of motion. No edema. SKIN: Warm, dry, no rash. NEURO: No focal deficits. Alert and oriented x3. PSYCH: Normal mood and affect Course Course Emergency Course: Patient updated on workup and agrees with plan of care Vital Signs Vital signs: Vital Signs Temperature 98.2 F 03/21/24 14:50 Pulse Rate 73 03/21/24 14:50 Respiratory Rate 18 03/21/24 14:50 Blood Pressure 126/70 03/21/24 14:50 Pulse Oximetry 100 03/21/24 14:50 Oxygen Delivery Room Air 03/21/24 14:50 Temperature 98.2 F 03/21/24 14:50 Pulse Rate 64 03/21/24 22:43 Respiratory Rate 20 03/21/24 22:43 Blood Pressure 121/71 03/21/24 22:43 Pulse Oximetry 99 03/21/24 23:20 Oxygen Delivery Room Air 03/21/24 23:20 MDM - Chest Pain MDM Narrative Medical decision making narrative: Patient presents the emergency department for left-sided chest pain ongoing over the last several days. Her vitals are stable. Cbc without leukocytosis. Hemoglobin is likely stable. Metabolic panel without concerning findings. EKG without acute ST changes and baseline and 3 hour troponin are negative. Chest x-ray without acute cardiopulmonary abnormality. Patient updated on workup and agrees with plan of care. Reports relief with Valium and Tylenol. She is to follow up with primary provider. She was given warnings to return to the ER Differential Diagnosis Differential diagnosis: Likely stable angina, atypical chest pain, costochondritis and other (muscle strain, muscle spasm, chest wall pain) Lab Data Attestation: I reviewed the patient's lab results. 03/21/24 14:52 03/21/24 14:52 Labs: Lab Results 03/21/24 03/21/24 Range/Units 14:52 23:17 WBC 9.2 (4.5-10.0) K/mm3 RBC 3.60 L (4.2-5.4) M/mm3 Hgb 10.4 L (12.0-15.0) g/dL Hct 32.4 L (37.0-47.0) % MCV 90.0 (80-100) fl MCH 28.9 (26-34) pg MCHC 32.1 (32-36) g/dl RDW 15.3 H (11.5-14.5) % Plt Count 342 (150-375) k/mm3 MPV 8.9 (7.4-10.4) fl Immature Gran % (Auto) 1.0 H (0-0.5) % Neut % (Auto) 64.6 (45.5-73.1) % Lymph % (Auto) 24.2 (18.3-44.2) % [place] % (Auto) 5.6 (2.6-8.5) % Eos % (Auto) 4.2 (0-4.4) % Baso % (Auto) 0.4 (0.2-1.2) % Lymph # (Auto) 2.21 (0.9-3.2) K/mm3 [place] # (Auto) 0.5 (0.1-0.6) K/mm3 Eos # (Auto) 0.4 H (0-0.3) K/mm3 Baso # (Auto) 0.0 (0.0-0.1) K/mm3 Abs Immat Gran (auto) 0.09 H (0.00-0.031) K/mm3 Absolute Neuts (auto) 5.9 (1.3-6.7) K/mm3 Absolute Nucleated RBC 0.000 (0.0-0.012) K/mm3 Nucleated RBC % 0.0 (0.0-0.2) % PT 13.5 (11.1-14.7) Seconds INR 1.0 APTT 28.7 (22.3-36.8) Seconds Sodium 136 L (137-145) mmol/L Potassium 3.9 (3.4-5.0) mmol/L Chloride 102 (98-107) mmol/L Carbon Dioxide 27 (22-30) mmol/L Anion Gap 7 (4-12) mmol/L BUN 12 (7-17) mg/dL Creatinine 0.66 L (0.7-1.0) mg/dL Estim Creat Clear Calc 120 ml/min Estimated GFR > 60 (59 - ) Glucose 152 H (65-110) mg/dL Calcium 8.6 (8.4-10.2) mg/dL Total Bilirubin 0.4 (0.2-1.3) mg/dL AST 19 (14-36) U/L ALT 16 (6-35) U/L Alkaline Phosphatase 101 (38-126) U/L Troponin I < 0.012 < 0.012 (0.000-0.034) ng/mL Total Protein 7.0 (6.3-8.2) g/dL Albumin 3.8 (3.5-5.1) g/dL Lipase 84 (23-300) U/L Imaging Data Radiologist's impression: ITS Impressions Chest X-Ray 03/21/24 15:27 IMPRESSION: No acute cardiopulmonary pathology. ECG Data EKG #1: ECG completion date: 03/21/24 EKG Interpretation: bradycardia, sinus rhythm, no ST changes and normal QT Critical Care Time Critical Care Time Critical Care Time: No Discharge Plan Discharge Clinical Impression: Chest pain Qualifiers: Chest pain type: unspecified Qualified Code(s): R07.9 - Chest pain, unspecified Patient Disposition: Home, Self-Care Condition: Improved Instructions: Chest Pain (ED) Additional Instructions: Return to the emergency department if you experience fever, worsening chest pain, shortness of breath, abdominal pain with nausea and vomiting, weakness, numbness, or any other symptoms that are concerning to you. Your blood work, imaging and EKG was re-assuring Follow up with primary care doctor Patient Language: Finnish Prescriptions: No Action doxycycline hyclate 100 mg capsule 100 mg PO BID 7 Days Qty: 14 0RF benzonatate 200 mg capsule 200 mg PO TID PRN (Reason: cough) Qty: 20 0RF sertraline 25 mg tablet 25 mg PO DAILY Qty: 30 2RF topiramate [Topamax] 25 mg tablet 25 mg PO DAILY Qty: 30 3RF nebivolol 20 mg tablet 40 mg PO DAILY Qty: 60 3RF rizatriptan 5 mg tablet 5 mg PO .COMPLEX Qty: 9 3RF Rx Instructions: 5 mg orally; ok to repeat dose in 2 hours if no relief, max dose 30mg in 24 hours. alprazolam 0.5 mg tablet 0.5 mg PO TID PRN (Reason: anxiety) Qty: 30 0RF Rx Instructions: Ok to take 1/2 tablet or 1 full tablet TID PRN. lisinopril 10 mg tablet 10 mg PO DAILY Qty: 30 3RF albuterol sulfate 90 mcg/actuation HFA aerosol inhaler 2 inh inhalation Q4H PRN (Reason: shortness of breath or wheezing) Qty: 6.7 0RF azithromycin 250 mg tablet See Rx Instructions PO .COMPLEX Qty: 6 0RF Rx Instructions: For 250 mg dose pack: take 500 mg today (day 1), then 250 mg for 4 days (days 2-5) PO duloxetine 60 mg capsule,delayed release(DR/EC) 60 mg PO DAILY Excedrin Extra Strength 250-250-65 mg tablet 1 tablet PO Q4-6H PRN (Reason: headache) Qty: 14 0RF ibuprofen 600 mg tablet 600 mg PO TID PRN (Reason: pain) Qty: 20 0RF ferrous sulfate 325 mg (65 mg iron) tablet,delayed release (DR/EC) 325 mg PO DAILY Qty: 30 6RF metformin 500 mg tablet extended release 24 hr 500 mg PO QPM Qty: 30 6RF mecobalamin (vitamin B12) 1,000 mcg tablet,chewable 1,000 mcg PO DAILY Qty: 30 2RF tizanidine 4 mg tablet 4 mg PO QHS PRN (Reason: muscle spasticity) Qty: 90 0RF Follow-up/Referrals: Josse Hernandez MD [Primary Care Provider] - Quality HEART score for chest pain patients History: slightly suspicious ECG: normal Age: < or = to 45 years Risk factors: > or = to 3 risk factors of atherosclerotic disease Troponin: < or = to 1x normal limit Heart score: 2
[2024-03-21 14:50] VITALS: BP 126/70; PULSE 73; RESP 18; TEMP 36.8; O2SAT 100
[2024-03-21 14:58] LABS: Basophils Percent Auto 0.4 % (0.2-1.2); Eosinophils Absolute Auto 0.4 K/mm3 (0-0.3); Eosinophils Percent Auto 4.2 % (0-4.4); Hematocrit 32.4 % (37.0-47.0); Hemoglobin 10.4 g/dL (12.0-15.0); Immature Granulocyte Absolute 0.09 K/mm3 (0.00-0.031); Lymphocytes Absolute Auto 2.21 K/mm3 (0.9-3.2); Lymphocytes Percent Auto 24.2 % (18.3-44.2); Mean Corpuscular HGB Conc 32.1 g/dl (32-36); Mean Corpuscular Hemoglobin 28.9 pg (26-34); Mean Platelet Volume 8.9 fl (7.4-10.4); Monocytes Absolute Auto 0.5 K/mm3 (0.1-0.6); Monocytes Percent Auto 5.6 % (2.6-8.5); Neutrophils Absolute Auto 5.9 K/mm3 (1.3-6.7); Neutrophils Percent Auto 64.6 % (45.5-73.1); Platelet Count Result 342 k/mm3 (150-375); Red Cell Distribution Width 15.3 % (11.5-14.5); White Blood Count 9.2 K/mm3 (4.5-10.0)
[2024-03-21 15:09] LABS: Alanine Aminotransferase 16 U/L (6-35); Albumin Level 3.8 g/dL (3.5-5.1); Alkaline Phosphatase 101 U/L (38-126); Anion Gap 7 mmol/L (4-12); Aspartate Amino Transferase 19 U/L (14-36); Bilirubin,Total 0.4 mg/dL (0.2-1.3); Blood Urea Nitrogen 12 mg/dL (7-17); Calcium 8.6 mg/dL (8.4-10.2); Carbon Dioxide 27 mmol/L (22-30); Chloride 102 mmol/L (98-107); Estimated CRCL calculation 120 ml/min; Estimated Glomerular Filt Rate > 60; Glucose 152 mg/dL (65-110); Lipase 84 U/L (23-300); Potassium 3.9 mmol/L (3.4-5.0); Prothrombin Time 13.5 Seconds (11.1-14.7); Sodium 136 mmol/L (137-145)
[2024-03-21 15:10] LABS: Partial Thromboplastin Time 28.7 Seconds (22.3-36.8)
[2024-03-21 15:22] LABS: Troponin I < 0.012 ng/mL (0.000-0.034)
[2024-03-21 20:45] VITALS: BP 147/86; PULSE 66; RESP 20; O2SAT 98
--- NOTE | 2024-03-21 21:21 | PC.NURSE ---
Patient amblates with steady gait and comes to desk to state I have been waiting for almost 7 hours. Am I able to leave if I want to? This RN informed patient that she can leave any time she wants to but we do recommend being seen and evaluated by a provider. Patient verbalized understanding and went to sit back down in the waiting room.
[2024-03-21 22:43] VITALS: BP 121/71; PULSE 64; RESP 20; O2SAT 100
--- NOTE | 2024-03-21 23:19 | ECG_ITS ---
Test Date: 2024-03-21 14:50:20 Measurements Intervals [place] Rate: 67 P: 26 HI: 147 QRS: 45 QRSD: 101 T: 27 QT: 404 QTc: 429 Interpretive Statements SINUS RHYTHM LOW QRS VOLTAGE IN PRECORDIAL LEADS [QRS DEFLECTION < 1.0 mV IN CHEST LEADS] NONSPECIFIC T-WAVE ABNORMALITY ABNORMAL ECG No previous ECG available for comparison Electronically Signed On 03-22-2024 08:19:18 [employer]IC ACCOUNTANT by Malik Cazares M.D.
[2024-03-21 23:20] VITALS: O2SAT 99
[2024-03-21 23:43] LABS: Troponin I < 0.012 ng/mL (0.000-0.034)
[2024-03-21] MEDS: ACETAMINOPHEN 500 MG TABLET 1000 MG PO (23:47)
[2024-03-21] MEDS: diazePAM INJ (*CRX) 10 MG/2 ML SYRINGE 5 MG IM (23:47)
--- NOTE | 2024-03-22 00:35 | PC.NURSE ---
pt reports feeling better after valium administration. EMY ravi
== END 2024-03-22 02:26 | disposition home or self-care (01) ==
PROVIDERS: Emergency Medicine; Emergency Provider Physician Assistant; PCP Family Medicine
DX: R07.9 Chest pain, unspecified (principal); F41.8 Other specified anxiety disorders; I10 Essential (primary) hypertension; E11.9 Type 2 diabetes mellitus without complications; G47.33 Obstructive sleep apnea (adult) (pediatric); E66.01 Morbid (severe) obesity due to excess calories; Z68.39 Body mass index [BMI] 39.0-39.9, adult
CPT/HCPCS: 36415; 71046; 80053; 83690; 84484; 85025; 85610; 85730; 93005; 96372; 99284; A9270; J3360

== ENCOUNTER 2024-04-07 09:02 | Outpatient (CLI) | payer OTHER, SELFPAY ==
--- NOTE | ~2024-04-07 | XR_ITS ---
Cervical Spine: AP, lateral, open-mouth views Clinical History: Pain Findings: The normal lordotic curve is maintained. The vertebral bodies and posterior elements appea r intact. The intervertebral disc spaces are well maintained. Pre-vertebral soft tissues are unremar kable. Impression: No significant abnormality is seen. Reviewed, dictated and finalized at [facility]. VE FIXER Impression: No significant abnormality is seen.
--- NOTE | ~2024-04-07 | XR_ITS ---
Left Shoulder Technique: AP and axillary views were obtained. Clinical History: Pain Findings: No fracture or dislocation is seen. Osseous alignment is anatomic. The glenohumeral and acr omioclavicular joint spaces are preserved. Soft tissues are unremarkable. Impression: Unremarkable left shoulder radiographs. Reviewed, dictated and finalized at [facility]. DOCTOR Impression: Unremarkable left shoulder radiographs.
== END 2024-04-07 09:03 | disposition home or self-care (01) ==
LOC: GOSHIMG 09:02
DX: R07.89 Other chest pain (principal); M25.512 Pain in left shoulder; M19.90 Unspecified osteoarthritis, unspecified site
CPT/HCPCS: 72040; 73030

== ENCOUNTER 2024-05-05 09:37 | Outpatient (CLI) | payer OTHER, SELFPAY ==
--- OUTSIDE RECORDS SUMMARY | 2024-05-05 10:42 | XMS_ITS | Patient Health Summary ---
Author Organization [facility] Address [address] [place] [address] Care Team Providers Care Apartment Leasing Manager Name Role Phone Unavailable Primary Care Provider Unavailabl e Note from [facility],non-owned Affiliates and Associated Physician Practices is amultiple site organization consisting of ambulatory clinics and hospital sitesin [place], [place], [place] and [place]. This disclosure is being madepursuant to the Care Everywhere program and may not contain all information available regarding this patient. Last updated 17.[facility] Active Problems Problem Noted Date Diagnosed Date Abnormality in heart r ate/rhythm, antepartum condition or complication 09/09/2009 Social History Tobacco Use Types Packs/Day Years Used Date Smoking Tobacco: Never Assessed Sex and Gender Information Value Date Recorded Sex Assigned at Not on file Gender Identity Not on file Sexual Orientation Not on file Procedures * CULTURE URINE(Performed 12/09/2013) * CULTURE URINE(Performed 11/18/2013) * ECHO CONSULT - (Performed 09/09/2009) Performed for Abnormality in Heart Rate/Rhythm, Antepartum (HCC) Results * CULTURE URINE (12/09/2013 2:15 PM CDT) Only the most recent of2 resultswithin the time period is included. Culture Urine Less than 10,000 CFU/ML of Normal Fecal Angela [facility] Comment: Culture Urine Less than 10,000 CFU/ML of Normal Urogenital/ Skin Angela after 48 Hours [facility] Comment: Urine specimen (specimen) URINE SPECIMEN OBTAINED BY CLEAN CATCH PROCEDURE / Unknown 12/09/2013 2:15 PM CDT 12/09/2013 9:18 PM CDT Narrative [facility] - 12/11/2013 12:13 PM CDT DayoSpecimen#[id number] Dayo Loc/Rm/Bed: POST PART/ CLN CATCH U Historical Provider MD LAB - MICROBIOLOG Y ORDERABLES Performing Organization Address City/State/[facility] Co de Phone Number [address] [phone] * ECHO CONSULT - (09/09/2009 12:12 PM CDT) 09/09/2009 12:1 2 PM CDT Narrative [facility] - 09/09/2009 2:57 PM CDT , Echocardiogram 2D, M-mode, Doppler, and Color Doppler Name: ELADIO PARISH MR #: [id number] Study date: 09/09/2009 Age: : 1980 Gender: Female Ht: / Wt: / BSA: HR: BP: / age: 34 weeks ADITI: 10/18/2009 Maternal age: 28 years REFERRING PHYSICIAN: KEON RIVAS LIBRARY ATTENDANT: Jaylin Hannon MD PEDIATRIC ECHO CIVIL PROJECT ENGINEER: DAVID Barakat History: tachycardia Procedure: The procedure was performed in the echo lab. type: single fetus. rhythm: The rhythm was normal sinus rhythm. The IA interval was 149 msec. morphology: There was normal heart anatomy and hemodynamics. There was normal heart size and situs. There was normal flow velocity across the outflow tract. Anatomic relationships: There was a normal atrio-ventricular connection. There was a normal ventriculo-arterial connection. Normally related great vessels. Systemic veins: There was normal systemic venous return. Ductus venosus: Flow in the ductus venosus was normal. Pulmonary veins: There was normal pulmonary venous return. Left ventricle: Wall thickness was normal. Aorta: A normal aortic arch was appreciated. Systemic arteries: The umbilical artery flow pattern was normal. Extracardiac shunting: Ductus arteriosus: A normal ductus arteriosus was appreciated. Impressions: - Diagnoses: The echocardiogram is within normal limits, no evidence of congenital heart disease, no evidence of tachycardia or dysrrhythmia. Small atrial and ventricular septal defects, and persistent ductus arteriosus cannot be excluded as findings. Prepared and signed by Jaylin Hannon MD Signed 09/09/2009 15:04:26 DOPPLER MEASUREMENTS General (Reference) Umbilical artery pulsatility index sys 1.4 Systemic veins (Reference) Ductus venosus pulsatility index 1.16 Tricuspid valve (Reference) Valve peak velocity E-wave 29 cm/sec Valve peak velocity A-wave 45 cm/sec Mitral valve (Reference) Valve peak velocity E-wave 32 cm/sec Valve peak velocity A-wave 46 cm/sec Pulmonic valve (Reference) Valve peak velocity m/sec m/sec Aortic valve (Reference) Valve peak velocity m/sec m/sec Pulmonary artery (Reference) RPA pulsatility index room air 4.56 LPA pulsatility index room air Aorta (Reference) Isthmus pulsatility index Ductus arteriosus (Reference) Pulsatility index 2.96 Legend: Predicted normals (shown in italics) are given as mean 2 SD Asterisk (*) rangel values outside the specified normal range. Procedure Note 09/09/2009 , Echocardiogram 2D, M-mode, Doppler, and Color Doppler Name: ELADIO PARISH MR #: [id number] Study date: 09/09/2009 Age: : 1980 Gender: Female Ht: / Wt: / BSA: HR: BP: / age: 34 weeks ADITI: 10/18/2009 Maternal age: 28 years REFERRING PHYSICIAN: KEON RIVAS LIBRARY ATTENDANT: Jaylin Hannon MD PEDIATRIC ECHO CIVIL PROJECT ENGINEER: DAVID Barakat History: tachycardia Procedure: The procedure was performed in the echo lab. type: single fetus. rhythm: The rhythm was normal sinus rhythm. The IA interval was 149 msec. morphology: There was normal heart anatomy and hemodynamics. There was normal heart size and situs. There was normal flow velocity across the outflow tract. Anatomic relationships: There was a normal atrio-ventricular connection. There was a normal ventriculo-arterial connection. Normally related great vessels. Systemic veins: There was normal systemic venous return. Ductus venosus: Flow in the ductus venosus was normal. Pulmonary veins: There was normal pulmonary venous return. Left ventricle: Wall thickness was normal. Aorta: A normal aortic arch was appreciated. Systemic arteries: The umbilical artery flow pattern was normal. Extracardiac shunting: Ductus arteriosus: A normal ductus arteriosus was appreciated. Impressions: - Diagnoses: The echocardiogram is within normal limits, no evidence of congenital heart disease, no evidence of tachycardia or dysrrhythmia. Small atrial and ventricular septal defects, and persistent ductus arteriosus cannot be excluded as findings. Prepared and signed by Jaylin Hannon MD Signed 09/09/2009 15:04:26 DOPPLER MEASUREMENTS General (Reference) Umbilical artery pulsatility index sys 1.4 Systemic veins (Reference) Ductus venosus pulsatility index 1.16 Tricuspid valve (Reference) Valve peak velocity E-wave 29 cm/sec Valve peak velocity A-wave 45 cm/sec Mitral valve (Reference) Valve peak velocity E-wave 32 cm/sec Valve peak velocity A-wave 46 cm/sec Pulmonic valve (Reference) Valve peak velocity m/sec m/sec Aortic valve (Reference) Valve peak velocity m/sec m/sec Pulmonary artery (Reference) RPA pulsatility index room air 4.56 LPA pulsatility index room air Aorta (Reference) Isthmus pulsatility index Ductus arteriosus (Reference) Pulsatility index 2.96 Legend: Predicted normals (shown in italics) are given as mean 2 SD Asterisk (*) rangel values outside the specified normal range. Keon Rivas MD ECHO ORDERABLES [facility] [address] [place] [address]
--- OUTSIDE RECORDS SUMMARY | 2024-05-05 10:42 | XMS_ITS | CONTINUITY OF CARE DOCUMENT ---
Author Name digna sawyer Address Unknown Organization [facility] Address [id number] [place] [address] [address] [place] [address] Phone [phone] Care Team Providers Care Wastewater Superintendent Name Role Phone Rishi FORD, Segun Unavailable ANDREA ANDERSON MD Unavailable ANAHI FORD, ROJELIO F Unavailable [phone] INSURANCE PROVIDERS Payer name Policy type / Coverage type Sullivan red green party ID [facility] [id number]
--- OUTSIDE RECORDS SUMMARY | 2024-05-05 10:42 | XMS_ITS | Clinical Summary ---
Author Organization [facility] Address [address] [place] [address] Care Team Providers Care Medical Receptionist Assistant Name Role Phone Unavailable Primary Care Provider Unavailabl e Source Comments [facility],non-owned Affiliates and Associated Physician Practices is amultiple site organization consisting of ambulatory clinics and hospital sitesin [place] and [place]. This disclosure is being madepursuant to the Care Everywhere program and may not contain all information available regarding this patient. Last updated 17.[facility] Active Problems Problem Noted Date Diagnosed Date Abnormality in heart r ate/rhythm, antepartum condition or complication 09/09/2009 Social History Tobacco Use Types Packs/Day Years Used Date Smoking Tobacco: Never Assessed Sex and Gender Information Value Date Recorded Sex Assigned at Not on file Gender Identity Not on file Sexual Orientation Not on file Plan of Treatment Health Maintenance Due Date Last Done Comments LIPID TESTING 1980 MAMMOGRAM 1980 PAP SMEAR 1980 HIV SCREENING 12/16/1995 HEPATITIS C SCREENING 12/11/1998 DTAP/TDAP/TD VACCINES (1 - Tdap) 12/16/1999 HEPATITIS B VACCINE (1 of 3 - 19+ 3-dose series) 12/16/1999 COVID-19 VACCINE ( - 2023-2 5 season) 2023 INFLUENZA VACCINE (#1) 2023 DEPRESSION SCREENING 03/11/2024 ZOSTER VACCINE (1 of 2) 2030 HIB VACCINE Aged Out No longer eligi ble based on patient's age to complete this topic HPV VACCINE Aged Out No longer eligi ble based on patient's age to complete this topic MENINGOCOCCAL (Group B) VACCINE Aged Out No longer eligible based on patient's age to complete this topic MENINGOCOCCAL VACCINE Aged Out No amelia emeterio eligible based on patient's age to complete this topic PNEUMOCOCCAL VACCINE Aged Out No long er eligible based on patient's age to complete this topic ENRIQUE JESUS Personal/Famil y 1980 [address] [place] [address] ENRIQUE JESUS Personal/Famil y 1980 [address] [place] [address]
--- OUTSIDE RECORDS SUMMARY | 2024-05-05 10:42 | XMS_ITS | Referral Summary ---
Author Organization [facility] Address [address] [place] [address] Care Team Providers Care Surgical Training Specialist Name Role Phone Unavailable Primary Care Provider Unavailabl e Source Comments [facility],non-owned Affiliates and Associated Physician Practices is amultiple site organization consisting of ambulatory clinics and hospital sitesin [place], [place], [place] and [place]. This disclosure is being madepursuant to the Care Everywhere program and may not contain all information available regarding this patient. Last updated 17.[facility] Active Problems Problem Noted Date Diagnosed Date Abnormality in heart r ate/rhythm, antepartum condition or complication 09/09/2009 Social History Tobacco Use Types Packs/Day Years Used Date Smoking Tobacco: Never Assessed Sex and Gender Information Value Date Recorded Sex Assigned at Not on file Gender Identity Not on file Sexual Orientation Not on file Plan of Treatment Not on file ENRIQUE JESUS Personal/Famil y 1980 [address] [place] [address] ENRIQUE JESUS Personal/Famil y 1980 [address] [place] [address]
[2024-05-05 14:26] LABS: Hemoglobin A1C 6.2 % (<5.7)
[2024-05-05 19:56] LABS: Microalbumin Urine Random 17.4 mg/L (0-16.7)
[2024-05-05 20:01] LABS: Creatinine Urine 225.4 mg/dL; MALB Creatinine Ratio 7.7 mg/g (0-30)
[2024-05-05 21:03] LABS: Folic Acid 4.3 ng/mL (2.76->20)
[2024-05-05 21:32] LABS: Iron 51 ug/dL (37-170)
[2024-05-05 21:41] LABS: Percent Iron Saturation 14 % (20-50)
== END 2024-05-05 09:38 | disposition home or self-care (01) ==
LOC: ANHGOSHLAB 09:38
PROVIDERS: Visit Provider Nurse Practitioner Adult Health
DX: E53.8 Deficiency of other specified B group vitamins (principal); E13.9 Other specified diabetes mellitus without complications; D50.9 Iron deficiency anemia, unspecified
CPT/HCPCS: 36415; 82043; 82607; 82746; 83036; 83540; 83550

== ENCOUNTER 2024-09-10 09:30 | Outpatient (CLI) | payer OTHER, SELFPAY ==
--- NOTE | ~2024-09-10 | XR_ITS ---
XR hip LT min 2V Ordering provider: Spring Jacobson APRN History: . M25.552 - Pain in left hip . Comparison: November 04, 2023 FINDINGS: BONES: No acute fracture or dislocation. Protrusio acetabuli left acetabulum is seen. HIP JOINT SPACES: Left hip arthroplasty. SACROILIAC JOINT SPACES/LUMBAR SPINE: The sacroiliac joint spaces are normal. Mild degenerative mccartney es of the visualized lower lumbar spine. PUBIC SYMPHYSIS: Normal. SOFT TISSUES: Normal. IMPRESSION: No acute osseous abnormality pelvis and left hip. Left hip arthroplasty with no change from previous examination. Reviewed, dictated and finalized at location A.
== END 2024-09-10 09:31 | disposition home or self-care (01) ==
LOC: GOSHIMG 09:30
PROVIDERS: PCP Nurse Practitioner Adult Health; Visit Provider Nurse Practitioner Adult Health
DX: M25.552 Pain in left hip (principal); Z96.642 Presence of left artificial hip joint
CPT/HCPCS: 73502

== ENCOUNTER 2024-09-25 14:58 | Outpatient (CLI) | payer OTHER, SELFPAY ==
--- NOTE | ~2024-09-25 | XR_ITS ---
EXAM: XR lumbar spine 2-3V DATE: 09/25/2024 15:24 HISTORY: M54.10 - Radiculopathy, site unspecified . COMPARISON: 10/30/2023. FINDINGS: Cholecystectomy clips. Partially visualized left hip arthroplasty hardware. 5 nonrib-bearin g lumbar-type vertebral bodies. Pedicles intact. 2 mm anterolisthesis at L4-5. Vertebral body heights preserved. Moderate disc space narrowing and marginal osteophytosis at L5-S1. Moderate lower lumbar facet sclerosis and hypertrophy. No fracture or dislocation. IMPRESSION: Stable grade 1 anterolisthesis at L4-5. Moderate degenerative disc disease at L5-S1. Mode rate lower lumbar facet arthropathy. Reviewed, dictated and finalized at location K. IMPRESSION: Stable grade 1 anterolisthesis at L4-5. Moderate degenerative disc disease at L5-S1. Moderate lower lumbar facet arthropathy.
== END 2024-09-25 14:59 | disposition home or self-care (01) ==
LOC: GOSHIMG 14:59
PROVIDERS: PCP Nurse Practitioner Adult Health; Visit Provider Nurse Practitioner Adult Health
DX: M51.16 Intervertebral disc disorders with radiculopathy, lumbar region (principal); M47.26 Other spondylosis with radiculopathy, lumbar region
CPT/HCPCS: 72100

== ENCOUNTER 2024-10-14 01:50 | Day surgery (SDC) | payer OTHER, SELFPAY ==
[2024-10-02 13:42] VITALS: BMI 35.6
--- OUTSIDE RECORDS SUMMARY | 2024-10-14 01:53 | XMS_ITS | Clinical Summary ---
Author Organization [facility] Address [address] [place] [address] Care Team Providers Care Tube Room Supervisor Name Role Phone Unavailable Primary Care Provider Unavailabl e Source Comments [facility],non-owned Affiliates and Associated Physician Practices is amultiple site organization consisting of ambulatory clinics and hospital sitesin [place], [place], [place] and [place]. This disclosure is being madepursuant to the Care Everywhere program and may not contain all information available regarding this patient. 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 Gender Identity Not on file Sexual Orientation Not on file Plan of Treatment Health Maintenance Due Date Last Done Comments LIPID TESTING 1980 MAMMOGRAM 1980 HIV SCREENING 12/16/1995 HEPATITIS C SCREENING 12/11/1998 DTAP/TDAP/TD VACCINES (1 - Tdap) 12/16/1999 HEPATITIS B VACCINE (1 of 3 - 19+ 3-dose series) 12/16/1999 HPV VACCINE (1 - 3-dose SCDM series) 12/16/2007 COVID-19 VACCINE (1 - 2023-2 5 season) 2023 DEPRESSION SCREENING 03/11/2024 INFLUENZA VACCINE (#1) 2024 ZOSTER VACCINE (1 of 2) 2030 HIB VACCINE Aged Out No longer eligi ble based on patient's age to complete this topic MENINGOCOCCAL (Group B) VACC INE SHARED DECISION-MAKING Aged Out No longer eligibl e based on patient's age to complete this topic MENINGOCOCCAL GROUPS A/C/Y/W VACCINE Aged Out No longer eligible b ased on patient's age to complete this topic PNEUMOCOCCAL VACCINE Aged Out No long er eligible based on patient's age to complete this topic Insurance [employer]
--- NOTE | 2024-10-14 07:50 | P.PNAN_ITS ---
Anes - Initial Pre Proc Eval Procedure: Operation Date: 10/14/24 14:00 Proposed Procedures p Esophagogastroduodenoscopy - Rigoberto Peck MD Date/Time: 10/14/24 07:50 Surgeon: Rigoberto Peck MD Pre Op Diagnosis: Esophageal obstruction, Dysphagia, unspecified Patient Data Age: 43 Gender: F Height: 1.68 m Weight: 100 kg Allergies Allergy/AdvReac Type Severity Reaction Status Date / Time metoclopramide Allergy Severe Other Verified 11/02/24 08:39 Home Medications ?Medication ?Instructions ?Recorded ?Confirmed ?Type hqmlaly-ahcjoensenwkm-hjezmahe 250 1 tablet PO Q4-6H P RN headache #14 10/21/23 11/02/24 Rx mg-250 mg-65 mg tablet (Excedrin tabs Extra Strength) rizatriptan 5 mg tablet 5 mg PO .COMPLEX #9 tabs 11/02/24 Rx ibuprofen 600 mg tablet 600 mg PO TID PRN pain #20 t abs 10/30/23 11/02/24 Rx mecobalamin (vitamin B12) 1,000 1,000 mcg PO DAILY #30 tabs 01/30/24 11/02/24 Rx mcg chewable tablet albuterol sulfate 90 mcg/actuation 2 inh inhalation Q4 H PRN shortness 02/05/24 11/02/24 Rx aerosol inhaler of breath or wheezing #6.7 g gabrielle Held on 07/28/24. Instructions: Patient no longer taking tizanidine 4 mg tablet 4 mg PO QHS PRN muscle spast icity 03/09/24 11/02/24 Rx #90 tabs duloxetine 60 mg capsule,delayed 60 mg PO DAILY #90 ca ps 05/06/24 11/02/24 Rx release alprazolam 0.5 mg tablet 0.5 mg PO TID PRN anxiety #3 0 tabs 06/03/24 11/02/24 Rx lisinopril 10 mg tablet 10 mg PO DAILY #30 tabs 04/2 11/0211/02/24 Rx ferrous sulfate 325 mg (65 mg 325 mg PO DAILY #30 tabs 07/20/24 11/02/24 Rx iron) tablet,delayed release topiramate 50 mg tablet 50 mg PO DAILY #30 tabs 05/2 11/02/24 Rx nebivolol 20 mg tablet 40 mg (2 x 20 mg) PO DAILY # 60 tabs 08/25/24 11/02/24 Rx celecoxib 200 mg capsule (Celebrex) 200 mg PO DAILY #9 0 caps 10/01/24 11/02/24 Rx tirzepatide 7.5 mg/0.5 mL See Rx Instructions .Route 0 10/28/24 11/02/24 Rx subcutaneous pen injector .COMPLEX #4 mL (Mounjaro) tramadol 50 mg tablet 50 mg PO Q6-8H PRN pain #15 tabs 10/28/24 11/02/24 Rx Patient hx anesthesia problems: none Family hx anesthesia problems: none Results Review: All pre-operative results and documents have been reviewed as part of the pre- operative evaluation. [facility] Past Medical History Medical History Radiculopathy Esophageal stricture COVID Iron deficiency anemia Diabetes mellitus type 2, noninsulin dependent Elevated liver function tests Hyponatremia Tachycardia Migraine headache with aura Inflammatory arthritis Depression ADILSON (obstructive sleep apnea) Left hip pain Morbid (severe) obesity due to excess calories Anxiety and depression Essential (primary) hypertension Right low back pain Surgical History Surgical History History of hysteroscopy (04/26/05) D&C - dysmenorrhea, menometrorrhagia History of hysteroscopy (11/07/06) Laparoscopy, Hysteroscopy, D&C - pelvic pain, irregular bleeding History of hysteroscopy (02/11/12) Hysteroscopy/D&C - dysmenorrhea, menometrorrhagia, Mirena IUD insertion History of gynecological procedure (05/06/12) mirena iud removal History of hysteroscopy (08/02/16) Hysteroscopy D&C / Menometrorrhagia; dysmenorrhea; endometrial hypertrophy- benign History of total left hip replacement 10/31/21 History of cataract extraction History of surgical procedure on eye proper using laser (~2010) History of (01/28/14) H/O: hysterectomy (01/02/17) RATLH menometrorrhagia, dysmenorrhea, enlarges uterus - proliferative phase endometrium History of cholecystectomy (~2008) Family History Family History Father Hypertension Family history of heart disease in male family member before age 55 Peripheral artery disease Heart disease Grandparent Hypertension Family history of malignant neoplasm of breast Breast cancer paternal grandmother Mother Hypertension Heart disease Sibling Peripheral artery disease Other Asthma Diabetes mellitus High cholesterol Social History Social History Smoking status: Never smoker Second hand tobacco smoke exposure: No Additional smoking assessment comments: Denies tobacco use. 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 Gender identity (if verbalized by the patient): Female Sexual Orientation (if Verbalized by the Patient): Straight or Heterosexual Spiritual care concerns: No Agree to blood products: Yes Anes - Eval Final PreProcedure Day of Procedure 10/14/24 07:50 Patient weight: obese Heart: regular rate and rhythm Lungs: clear to auscultation Airway: Mallampati scale class II Neurological: alert and oriented Last oral intake: >/= 8 hours ASA classification: III Emergent: no Anesthetic plan: proceed Anesthesia type and monitoring: general GIVS and standard monitoring Results Review: All pre-operative results and documents have been reviewed as part of the pre- operative evaluation. Informed Consent: The patient's anesthetic plan and its attendant risks and benefits were discussed with the patient/family/POA. Questions were solicited and answers provided to the satisfaction of the patient/family/POA.
[2024-10-14 12:34] VITALS: BP 123/79; PULSE 70; RESP 18; TEMP 36.5; O2SAT 100; BMI 35.2
[2024-10-14] MEDS: LACTATED RINGERS 1,000 ML 150 ML IV CONT (12:37)
--- NOTE | 2024-10-14 13:47 | PM.HPGS ---
History of Present Illness History of Present Illness Consent: Risks, benefits, and alternatives have been discussed and questions answered. Patient agrees to proceed with procedure. Chief complaint: Esophageal obstruction, Dysphagia, unspecified Narrative: Ольга Parish is a 43 year old female with dysphagia, had dilation 2021, bx showed possible EoE Review of Systems Review of Systems: All systems reviewed & are unremarkable except as noted in HPI and below PMFSH Past Medical History Medical History (Updated 09/22/24 @ 16:56 by Spring Jacobson APRN) Radiculopathy Esophageal stricture COVID Iron deficiency anemia Diabetes mellitus type 2, noninsulin dependent Elevated liver function tests Hyponatremia Tachycardia Migraine headache with aura Inflammatory arthritis Depression ADILSON (obstructive sleep apnea) Left hip pain Morbid (severe) obesity due to excess calories Anxiety and depression Essential (primary) hypertension Right low back pain Surgical History Surgical History History of hysteroscopy (04/26/05) D&C - dysmenorrhea, menometrorrhagia History of hysteroscopy (11/07/06) Laparoscopy, Hysteroscopy, D&C - pelvic pain, irregular bleeding History of hysteroscopy (02/11/12) Hysteroscopy/D&C - dysmenorrhea, menometrorrhagia, Mirena IUD insertion History of gynecological procedure (05/06/12) mirena iud removal History of hysteroscopy (08/02/16) Hysteroscopy D&C / Menometrorrhagia; dysmenorrhea; endometrial hypertrophy-benign History of total left hip replacement 10/31/21 History of cataract extraction History of surgical procedure on eye proper using laser (~2010) History of (01/28/14) H/O: hysterectomy (01/02/17) RATLH menometrorrhagia, dysmenorrhea, enlarges uterus - proliferative phase endometrium History of cholecystectomy (~2008) Family History Family History Father Hypertension Family history of heart disease in male family member before age 55 Peripheral artery disease Heart disease Grandparent Hypertension Family history of malignant neoplasm of breast Breast cancer paternal grandmother Mother Hypertension Heart disease Sibling Peripheral artery disease Other Asthma Diabetes mellitus High cholesterol Social History Social History Smoking status: Never smoker Second hand tobacco smoke exposure: No Additional smoking assessment comments: Denies tobacco use. 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 Gender identity (if verbalized by the patient): Female Sexual Orientation (if Verbalized by the Patient): Straight or Heterosexual Spiritual care concerns: No Agree to blood products: Yes Meds Home Medications and Allergies Home Medications ?Medication ?Instructions ?Recorded ?Confirmed ?Type cilcqhi-kdubrqlcnvsun-lhxczxri 250 1 tablet PO Q4-6H PRN headache #14 10/21/23 10/02/24 Rx mg-250 mg-65 mg tablet (Excedrin tabs Extra Strength) rizatriptan 5 mg tablet 5 mg PO .COMPLEX #9 tabs 10/23/23 10/14/24 Rx ibuprofen 600 mg tablet 600 mg PO TID PRN pain #20 tabs 10/30/23 09/08/24 Rx mecobalamin (vitamin B12) 1,000 1,000 mcg PO DAILY #30 tabs 01/30/24 10/02/24 Rx mcg chewable tablet albuterol sulfate 90 mcg/actuation 2 inh inhalation Q4H PRN shortness 02/05/24 10/14/24 Rx aerosol inhaler of breath or wheezing #6.7 grams tizanidine 4 mg tablet 4 mg PO QHS PRN muscle spasticity 03/09/24 10/02/24 Rx #90 tabs duloxetine 60 mg capsule,delayed 60 mg PO DAILY #90 caps 05/06/24 10/14/24 Rx release alprazolam 0.5 mg tablet 0.5 mg PO TID PRN anxiety #30 tabs 06/03/24 10/02/24 Rx lisinopril 10 mg tablet 10 mg PO DAILY #30 tabs 07/06/24 10/14/24 Rx ferrous sulfate 325 mg (65 mg 325 mg PO DAILY #30 tabs 07/20/24 10/02/24 Rx iron) tablet,delayed release topiramate 50 mg tablet 50 mg PO DAILY #30 tabs 07/28/24 10/14/24 Rx nebivolol 20 mg tablet 40 mg (2 x 20 mg) PO DAILY #60 tabs 08/25/24 10/14/24 Rx celecoxib 200 mg capsule (Celebrex) 200 mg PO DAILY #90 caps 10/01/24 10/14/24 Rx tirzepatide 7.5 mg/0.5 mL See Rx Instructions .Route 10/04/24 10/14/24 Rx subcutaneous pen injector .COMPLEX #4 mL (Mounjaro) tramadol 50 mg tablet 50 mg PO Q6-8H PRN pain #15 tabs 10/14/24 10/14/24 Rx Allergies Allergy/AdvReac Type Severity Reaction Status Date / Time metoclopramide Allergy Severe Other Verified 10/14/24 12:30 Vital Signs Vital Signs - 24 hr 10/14/24 12:34 Temperature 97.7 F Pulse Rate 70 Respiratory Rate 18 Blood Pressure 123/79 Pulse Oximetry 100 Oxygen Delivery Room Air Exam Const: General: comfortable and no acute distress HENMT: Face/Nose/Sinus: Normal nares present Eyes: General: appearance normal, both eyes and all related structures Neck: Neck: no JVD Resp: Auscultation: clear to auscultation bilaterally Cardio: Rate: regular rate Rhythm: regular rhythm GI: Inspection: non-distended GI Palp: Yes Soft to palpation Skin: General skin exam: normal color Neuro: Speech: normal speech Extrem: General: normal to inspection Psych: Mental Status: mental status grossly normal Assessment and Plan Assessment and plan (1) Dysphagia: Code(s): R13.10 - Dysphagia, unspecified Status: Acute Assessment and Plan: egd with bx (2) Eosinophilic esophagitis: Code(s): K20.0 - Eosinophilic esophagitis Status: Acute
--- NOTE | 2024-10-14 13:59 | S_PTH ---
PATIENT: Ольга Parish LOC: [facility]#:[id number] AGE/SX: 43/F ROOM: RE10/14/[address]: Rigoberto Peck MD : [id number] BED: DIS: 10/14/2024 SPEC #: [id number] RECD: 10/14/24 14:23 STATUS: HERMAN REQ #: [id number] SIMA: 10/14/24 13:[address]: Rigoberto Peck DEPT: [facility] Surgical RECD BY: Daisy Olmos ENTERED: 10/14/24 14:24 SP TYPE: Surgical OTHR DR: Spring Jacobson, SYED Tissues: A - Gastric Biopsy B - Esophageal Biopsy C - Esophageal Biopsy Procedures: Hematoxylin and Eosin Stain Gross and Microscopic Level 4
[2024-10-14 14:02] VITALS: BP 92/46; PULSE 70; RESP 20; O2SAT 96
[2024-10-14 14:12] VITALS: BP 103/49; PULSE 72; RESP 20; O2SAT 99
[2024-10-14 14:22] VITALS: BP 105/59; PULSE 63; RESP 20; O2SAT 100
--- NOTE | 2024-10-14 14:36 | SUR.PHASEII ---
Patient's blood sugar in post op was 69. I gave her an apple juice and her blood sugar recheck was 73. Patient states she has no symptoms and blood sugar runs around 70's- 80's.
== END 2024-10-14 14:36 | disposition home or self-care (01) ==
PROVIDERS: PCP Nurse Practitioner Adult Health; Referring Provider Nurse Practitioner Family; Visit Provider Internal Medicine Gastroenterology
PROC: 0DJ08ZZ Inspection of Upper Intestinal Tract, Via Natural or Artificial Opening Endoscopic (ICD-10-PCS; CPT 43239; principal; 2024-10-14 14:00)
DX: K20.0 Eosinophilic esophagitis (principal); E11.9 Type 2 diabetes mellitus without complications
CPT/HCPCS: 43239; 82948; 88305; J2003; J2704; J7120

== ENCOUNTER 2024-11-27 08:48 | Outpatient (CLI) | payer OTHER, SELFPAY ==
--- NOTE | ~2024-11-27 | XR_ITS ---
EXAMINATION: XR knee RT min 4V, 11/27/2024 9:35 CDT HISTORY: Pain in right knee, fell x 1 week, numbness x 1 week COMPARISON: No comparisons available. Findings: No acute fracture or malalignment. Moderate to severe tricompartmental degenerative changes, small effusion Soft tissues unremarkable. Impression: No acute fracture or malalignment. Reviewed, dictated and finalized at location A. Impression: No acute fracture or malalignment.
== END 2024-11-27 08:49 | disposition home or self-care (01) ==
LOC: GOSHIMG 08:49
PROVIDERS: PCP Family Medicine
DX: M25.561 Pain in right knee (principal)
CPT/HCPCS: 73564